=== PATIENT | male | born 1975 | race Caucasian/White ===

== ENCOUNTER 2022-03-21 02:37 | Emergency (ER) | payer SELFPAY ==
[2022-03-21] MEDS ORDERED: LIDOCAINE 1% MPF 5 ML VIAL ONE (02:55)
--- NOTE | 2022-03-21 03:53 | ER ---
Nurse's Notes [facility] Name: Eladio Ramos Age: 46 yrs Sex: Male : 1975 Arrival Date: 03/21/2022 Time: 02:40 Bed 13 Private MD: Diagnosis: Other seizures;facial laceration Presentation: 03/21 02:46 Chief complaint: Patient states: "I had a seizure and fell and hit my head". as6 Coronavirus screen: At this time, the client does not indicate any symptoms associated with coronavirus-19. Ebola Screen: No symptoms or risks identified at this time. Initial Sepsis Screen: Does the patient meet any 2 criteria? No. Patient's initial sepsis screen is negative. Does the patient have a suspected source of infection? No. Patient's initial sepsis screen is negative. Risk Assessment: Do you want to hurt yourself or someone else? Patient reports no desire to harm self or others. Onset of symptoms was March 21, 2022 at 01:30. 02:46 Method Of Arrival: Ambulatory as6 02:46 Acuity: NIRAV 3 as6 Historical: - Allergies: 02:48 No Known Allergies; as6 - Home Meds: 02:48 Keppra Oral [Active]; Klonopin Oral [Active]; as6 - PMHx: 02:48 Seizure; as6 - Immunization history:: Client reports having NOT received the Covid vaccine. - Social history:: Smoking status: Patient reports the use of cigarette tobacco products, smokes one pack cigarettes per day. - Family history:: not pertinent. Screenin:50 [facility] ED Fall Risk Assessment (Adult) History of falling in the last 3 months, as6 including since admission Yes- physiologic fall (2 pts) Confusion or Disorientation No (0 pts) Intoxicated or Sedated No (0 pts) Impaired Gait No (0 pts) Mobility Assist Device Used No (0 pt) Altered Elimination No (0 pt) Score/Fall Risk Level 0 - 2 = Low Risk Oriented to surroundings, Maintained a safe environment, Educated pt \\T\\ family on fall prevention, incl call for assistance when getting out of bed, Assessed \\T\\ reinforced patient's understanding of fall precautions, Hourly rounding (assess needs \\T\\ fall precautionary measures) done. Abuse screen: Denies threats or abuse. Denies injuries from another. Nutritional screening: No deficits noted. Tuberculosis screening: No symptoms or risk factors identified. Assessment: 02:59 General: Appears in no apparent distress. Behavior is calm, cooperative. Pain: as6 Complains of pain in head. Pain: Quality of pain is described as aching. Neuro: Level of Consciousness is awake, alert, obeys commands, Oriented to person, place, time, situation, Reports headache. Cardiovascular: Capillary refill < 3 seconds Patient's skin is warm and dry. Respiratory: Respiratory effort is even, unlabored, Respiratory pattern is regular, symmetrical. Derm: Wound noted left side of forehead Wound is laceration. Vital Signs: 02:46 BP 124 / 94; Pulse 94; Resp 18 S; Temp 97.8(O); Pulse Ox 97% on R/A; Weight 63.5 kg as6 (R); Height 5 ft. 7 in. (170.18 cm) (R); 02:49 Pain 7/10; as6 03:54 BP 122 / 89; Pulse 85; Resp 16 S; Pulse Ox 98% on R/A; as6 02:46 Body Mass Index 21.93 (63.50 kg, 170.18 cm) as6 ED Course: 02:40 Patient arrived in ED. ja2 02:40 Nimesh Wood MD is Attending Physician. rt 02:46 Edison Shaw, KALE is Primary Nurse. as6 02:48 Triage completed. as6 02:49 Arm band placed on. as6 02:49 Bed in low position. Call light in reach. as6 03:12 CT Head Brain wo Cont In Process Unspecified. EDMS 03:51 Javid Bauer MD is Referral Physician. rt 03:55 Assist provider with laceration repair on left side of forehead that was 2.5 cm. or as6 less using sutures. Set up tray. Performed by Nimesh Wood MD Patient tolerated well. Patient did not have IV access during this emergency room visit. Administered Medications: 03:45 Drug: Lidocaine (1 %) 5 ml {Note: administered by provider .} Volume: 5 ml; Route: as6 Infiltration; 04:01 Follow up: Response: No adverse reaction as6 04:01 Drug: Ketorolac 30 mg Route: IM; Site: right deltoid; as6 04:01 Follow up: Response: No adverse reaction as6 Medication: 03:54 VIS not applicable for this client. as6 Outcome: 03:52 Discharge ordered by MD. rt 03:54 Discharged to home ambulatory. as6 03:54 Condition: stable 04:01 Discharge instructions given to patient, Instructed on discharge instructions, follow as6 up and referral plans. medication usage, wound care, Demonstrated understanding of instructions, follow-up care, medications, wound care, Prescriptions given X 1. 04:01 Patient left the ED. as6 Signatures: Dispatcher [employer] EDMS Lynette Zaidi Ashby, RN RN as6 Nimesh Wood MD MD rt
--- NOTE | 2022-03-21 03:53 | EDPHYS ---
Physician Documentation [facility] Name: Eladio Ramos Age: 46 yrs Sex: Male : 1975 Arrival Date: 03/21/2022 Time: 02:40 Bed 13 Private MD: ED Physician Nimesh Wood HPI: 03/21 03:08 This 46 yrs old Male presents to ER via Ambulatory with complaints of Fall Injury. rt 03:08 Patient with history of seizure disorder, reportedly off of his Keppra for about 3 days rt presents to the ED with a generalized tonic-clonic seizure in which he hit his head, has a laceration to the left eyebrow. Reports a mild pain to that area, denies other symptoms. Denies recent illness, other complaints. Symptoms are moderate in severity, no other aggravating alleviating factors.. Historical: - Allergies: 02:48 No Known Allergies; as6 - Home Meds: 02:48 Keppra Oral [Active]; Klonopin Oral [Active]; as6 - PMHx: 02:48 Seizure; as6 - Immunization history:: Client reports having NOT received the Covid vaccine. - Social history:: Smoking status: Patient reports the use of cigarette tobacco products, smokes one pack cigarettes per day. - Family history:: not pertinent. ROS: 03:08 Constitutional: Negative for fever, chills, and weight loss, Eyes: Negative for injury, rt pain, redness, and discharge, Cardiovascular: Negative for chest pain, palpitations, and edema, Respiratory: Negative for shortness of breath, cough, wheezing, and pleuritic chest pain, Abdomen/GI: Negative for abdominal pain, nausea, vomiting, diarrhea, and constipation, Skin: Negative for injury, rash, and discoloration, Psych: Negative for depression, anxiety, suicide ideation, homicidal ideation, and hallucinations. 03:08 Neuro: Positive for seizure activity, Negative for altered mental status. Exam: 03:08 Constitutional: This is a well developed, well nourished patient who is awake, alert, rt and in no acute distress. Eyes: Pupils equal round and reactive to light, extra-ocular motions intact. Lids and lashes normal. Conjunctiva and sclera are non-icteric and not injected. Cornea within normal limits. Periorbital areas with no swelling, redness, or edema. Neck: Trachea midline, no thyromegaly or masses palpated, and no cervical lymphadenopathy. Supple, full range of motion without nuchal rigidity, or vertebral point tenderness. No Meningismus. Chest/axilla: Normal chest wall appearance and motion. Nontender with no deformity. No lesions are appreciated. Cardiovascular: Regular rate and rhythm with a normal S1 and S2. No gallops, murmurs, or rubs. Normal PMI, no JVD. No pulse deficits. Respiratory: Lungs have equal breath sounds bilaterally, clear to auscultation and percussion. No rales, rhonchi or wheezes noted. No increased work of breathing, no retractions or nasal flaring. Abdomen/GI: Soft, non-tender, with normal bowel sounds. No distension or tympany. No guarding or rebound. No evidence of tenderness throughout. Skin: Warm, dry with normal turgor. Normal color with no rashes, no lesions, and no evidence of cellulitis. MS/ Extremity: Pulses equal, no cyanosis. Neurovascular intact. Full, normal range of motion. Neuro: Awake and alert, GCS 15, oriented to person, place, time, and situation. Cranial nerves II-XII grossly intact. Motor strength 5/5 in all extremities. Sensory grossly intact. Cerebellar exam normal. Normal gait. Psych: Awake, alert, with orientation to person, place and time. Behavior, mood, and affect are within normal limits. 03:08 Head/face: 2 Centimeter stellate laceration to the left eyebrow, no active bleeding noted.. Vital Signs: 02:46 BP 124 / 94; Pulse 94; Resp 18 S; Temp 97.8(O); Pulse Ox 97% on R/A; Weight 63.5 kg as6 (R); Height 5 ft. 7 in. (170.18 cm) (R); 02:49 Pain 7/10; as6 03:54 BP 122 / 89; Pulse 85; Resp 16 S; Pulse Ox 98% on R/A; as6 02:46 Body Mass Index 21.93 (63.50 kg, 170.18 cm) as6 Laceration: 03:54 Wound Repair of 3cm ( 1.2in ) subcutaneous laceration to outer aspect of left eyebrow. rt Irregularly shaped.. Distal neuro/vascular/tendon intact. Anesthesia: Wound infiltrated with 2 mls of 1% lidocaine. Wound prep: Copious irrigation. Skin closed with 7 4-0 Prolene using interrupted sutures and sterile technique. Dressed with 4x4's. Patient tolerated well. MDM: 02:44 Patient medically screened. rt 03:54 Differential diagnosis: Seizure, syncope, mechanical fall. Data reviewed: vital signs, rt nurses notes, radiologic studies. I considered the following discharge prescriptions or medication management in the emergency department Medications were administered in the Emergency Department. See MAR. Independent interpretation of the following test(s) in the Emergency Department CT Scan: My interpretation is No hemorrhage seen. Test considered but Not performed: EKG: No typical seizure, low suspicion for dysrhythmia, syncopal event. Labs: Stable vital signs, noncompliant on Keppra, labs not indicated. Care significantly affected by the following chronic conditions: Seizure disorder. Care significantly affected by the following Social Determinants of Health: Poor access to healthcare and/or lack of insurance, Misuse of alcohol and/or drugs. 03/21 02:49 Order name: CT Head Brain wo Cont rt 03/21 02:49 Order name: Wound Care; Complete Time: 02:59 rt Administered Medications: 03:45 Drug: Lidocaine (1 %) 5 ml {Note: administered by provider .} Volume: 5 ml; Route: as6 Infiltration; 04:01 Follow up: Response: No adverse reaction as6 04:01 Drug: Ketorolac 30 mg Route: IM; Site: right deltoid; as6 04:01 Follow up: Response: No adverse reaction as6 Disposition Summary: 03/21/22 03:52 Discharge Ordered Location: Home rt Problem: an acute exacerbation rt Symptoms: have improved rt Condition: Stable rt Diagnosis - Other seizures rt - facial laceration rt Followup: rt - With: Javid Bauer MD - When: 5 - 6 days - Reason: Followup: rt - With: Private Physician - When: 7 - 10 days - Reason: Staple/Suture removal Discharge Instructions: - Discharge Summary Sheet rt - Facial Laceration rt - Seizure, Adult rt Forms: - Medication Reconciliation Form rt - Thank You Letter rt - Antibiotic Education rt - Prescription Opioid Use rt Prescriptions: - Keppra 500 mg Oral Tablet - take 1 tablet by ORAL route every 12 hours; 60 tablet; Refills: 0, Product rt Selection Permitted Signatures: Dispatcher [employer] Edison Francisco, KALE RN as6 Nimesh Wood MD MD rt
[2022-03-21] MEDS ORDERED: KETOROLAC 30 MG/ML INJ ONE (03:59)
[2022-03-21 04:07] VITALS: TEMP 97.8
[2022-03-21 04:09] VITALS: BP 122/89; O2SAT 98
--- NOTE | 2022-03-21 16:30 | RAD REPORT ---
EXAM DESCRIPTION: Head Brain Wo Cont CLINICAL HISTORY: 46 years Male trauma COMPARISON: None TECHNIQUE: Noncontrast CT head. This exam was performed according to our departmental dose-optimization program, which includes autom ated exposure control, adjustment of the mA and/or kV according to patient size and/or use of iterati ve reconstruction technique.. FINDINGS: Parenchyma: No acute hemorrhage, large territorial infarction, or mass effect. Ventricles and extra-axial spaces: Appropriate for age. Visualized paranasal sinuses: Retention cysts versus polyps in the left ethmoid sinus and left spheno id sinus. Mastoid air cells: Clear. Bones: No acute focal abnormality. Additional comment: None. IMPRESSION: No acute intracranial findings. Electronically signed by: Celine Amor MD 03/21/2022 3:26 AM BRANDING SPECIALIST Due to temporary technical issues with the PACS/Fluency reporting system, reports are being signed by the in house radiologists without review as a courtesy to insure prompt reporting. The interpreting radiologist is fully responsible for the content of the report
== END 2022-03-21 04:01 | disposition home or self-care (01) ==
LOC: ER 02:37
DX: G40.802 Other epilepsy, not intractable, without status epilepticus (principal)
CPT/HCPCS: 70450; 96372; 99284; J2001

== ENCOUNTER → 2023-05-12 | Emergency (ER) | payer SELFPAY ==
[~2023-05-12] MED LIST: ACETAMINOPHEN 500 MG TAB ONE; HYDROCODONE/APAP 5/325 MG TAB ONE; LIDOCAINE 1% MPF 5 ML VIAL ONE
--- OUTSIDE RECORDS SUMMARY | 2023-05-12 17:35 | XMS REPORT | Continuity of Care Document ---
Author Name Unknown Address [address] [facility] [place] [address] [facility] thconnect Address [address] [facility] [place] [address] Care Team Providers Care Front Services Agent Name Role Phone Drew Goodwin MD Primary Care Physician [phone] Nimesh Blakely Attending Clinician Unavail able Beatris Bauer Attending Clinician Unav BETZAIDA Rodriguez Attending Clinician Unavailab Drew Law MD Attending Clinician [phone] FRANCESCO BURLESON Attending Clinician UnavailFrancesco Talbot MD Attending Clinician [phone] DREW GOODWIN Attending Clinician Unavailable Pcp-Lab Attending Clinician Unavailable Doctor Unassigned, Petrey Attending Clinician U MICHELE Harper Attending Clinician Unavailable RADIOLOGY Attending Clinician Unavailable Micheal Brown DO Attending Clinician Miguel Angel Sandoval MD Attending Clinician MIGUEL ANGEL SANDOVAL Attending Clinician Unavailable MANUELA CHIRINOS D.O. 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 Active [facility] No known active problems No known active problems Disease [facility] Allergies, Adverse Reactions, Alerts Allergy Name Allergy Type Status Severity Reaction(s) Onset Date Inactive Date Treating Clinician Comments Source No Known Allergie s DA Active U 0 -05 00:00: 00 [facility] No Known Allergie s DA Active U 0 4-05 00:00: 00 [facility] No Known Drug Allergie s DA Active U 0 5-13 00:00: 00 [facility] No Known Drug Allergie s DA Active U 0 5-13 00:00: 00 [facility] No Known Drug Allergie s DA Active U 0 5-10 00:00: 00 [facility] No Known Allergie s DA Active U 0 3-06 00:00: 00 [facility] [place] [address] 8-10 00:00: 00 [facility] Divalpro ex Sodium Propensi ty to adverse reaction s Active Unknown - See comments 2011-02 00:00: 00 [facility] DIVALPRO EX SODIUM DRUG INGREDI Active Unknown-Cmnt 2011-02 00:00: 00 [facility] Carbamaz epine Propensi ty to adverse reaction s Active Unknown - See comments 09-22 00:00: 00 [facility] CARBAMAZ EPINE DRUG INGREDI Active Unknown-Cmnt 09-22 00:00: 00 [facility] Social History Social Habit Start Date Stop Date Quantity Comments Source History of tobacco use Cigarette Smoker [facility] 2022-12-14 00:00:00 2022-12-14 00:00:00 1.19 /d [facility] Exposure to SARS-CoV-2 (event) 2022-04-25 00:00:00 2022-05-05 10:48:00 Not sure [facility] History of Social function 2022-05-05 00:00:00 2022-05-05 00:00:00 [facility] Cigarettes smoked current (pack per day) - Reported 2010-12-03 00:00:00 2010-12-03 00:00:00 [facility] Tobacco use and exposure 2010-12-03 00:00:00 2010-12-03 00:00:00 Smokeless tobacco non-user [facility] Alcohol Comment 2010-12-03 00:00:00 2010-12-03 00:00:00 social drinking [facility] Sex Assigned At 1975 00:00:00 1975 00:00:00 [facility] Smoking Status Start Date Stop Date Source Smokes tobacco daily 2010-12-03 00:00:00 [facility] Medications Ordered Medication Name Filled Medication Name Start Date Stop Date Current Medication? Ordering Clinician Indication Dosage Frequency Signature (SIG) Comments Components Source clonazePAM 2 mg tablet 2022-02 00:00: 00 Yes [id number] TAKE 1 TABLET BY MOUTH IN THE MORNING AND 1 TABLET BY MOUTH IN THE EVENING [facility] levETIRAcet am 750 mg tablet 2022-02 00:00: 00 Yes [id number] 750mg Take 1 tablet by mouth in the morning and 1 tablet in the evening. [facility] clonazePAM 2 mg tablet 2022-02 00:00: 00 Yes [id number] 2mg Take 1 tablet by mouth in the morning and 1 tablet in the evening. [facility] levETIRAcet am 750 mg tablet 2022-02 00:00: 00 Yes [id number] 750mg Take 1 tablet by mouth in the morning and 1 tablet in the evening. [facility] clonazePAM 2 mg tablet 2022-02 1- 00:00: 00 Yes [id number] 2mg Take 1 tablet by mouth in the morning and 1 tablet in the evening. [facility] levETIRAcet am 750 mg tablet 2022-02 1 00:00: 00 Yes [id number] 750mg Take 1 tablet by mouth in the morning and 1 tablet in the evening. [facility] clonazePAM 2 mg tablet 2022-02 1 00:00: 00 01-16 00:00 :00 No [id number] 2mg Take 1 tablet by mouth in the morning and 1 tablet in the evening. [facility] cefadroxil 1 gram tablet 2022-02 0- 00:00: 00 Yes [id number] 1000mg Take 1 tablet by mouth in the morning. [facility] cefadroxil 1 gram tablet 2022-02 0 00:00: 00 Yes [id number] 1000mg Take 1 tablet by mouth in the morning. [facility] cefadroxil 1 gram tablet 2022-02 0 00:00: 00 Yes [id number] 1000mg Take 1 tablet by mouth in the morning. [facility] cefadroxil 1 gram tablet 2022-02 0 00:00: 00 Yes [id number] 1000mg Take 1 tablet by mouth in the morning. [facility] cefadroxil 1 gram tablet 2022-02 0 00:00: 00 12-30 04:59 :00 No [id number] 1000mg Take 1 tablet by mouth in the morning for 10 days. [facility] cefadroxil 1 gram tablet 2022-02 0- 00:00: 00 12-20 00:00 :00 No [id number] 1000mg Take 1 tablet by mouth in the morning for 10 days. [facility] levETIRAcet am 750 mg tablet 2022-02 0-12 00:00: 00 Yes [id number] 750mg Take 1 tablet by mouth in the morning and 1 tablet in the evening. [facility] traZODone 50 mg tablet 2022-02 0-12 00:00: 00 Yes [id number] 105 25mg Take 0.5 tablets by mouth at bedtime. [facility] cyclobenzap rine 5 mg tablet 2022-02 0-12 00:00: 00 Yes [id number] 5mg Take 1 tablet by mouth 3 (three) times daily as needed for Muscle Spasms. [facility] levETIRAcet am 750 mg tablet 2022-02 0-12 00:00: 00 Yes [id number] 750mg Take 1 tablet by mouth in the morning and 1 tablet in the evening. [facility] traZODone 50 mg tablet 2022-02 012 00:00: 00 Yes [id number] 105 25mg Take 0.5 tablets by mouth at bedtime. [facility] cyclobenzap rine 5 mg tablet 2022-02 0 00:00: 00 Yes [id number] 5mg Take 1 tablet by mouth 3 (three) times daily as needed for Muscle Spasms. [facility] levETIRAcet am 750 mg tablet 2022-02 0 00:00: 00 Yes [id number] 750mg Take 1 tablet by mouth in the morning and 1 tablet in the evening. [facility] traZODone 50 mg tablet 2022-02 0 00:00: 00 Yes [id number] 105 25mg Take 0.5 tablets by mouth at bedtime. [facility] cyclobenzap rine 5 mg tablet 2022-02 012 00:00: 00 Yes [id number] 5mg Take 1 tablet by mouth 3 (three) times daily as needed for Muscle Spasms. [facility] levETIRAcet am 750 mg tablet 2022-02 0-12 00:00: 00 Yes [id number] 750mg Take 1 tablet by mouth in the morning and 1 tablet in the evening. [facility] traZODone 50 mg tablet 2022-02 0-12 00:00: 00 Yes [id number] 105 25mg Take 0.5 tablets by mouth at bedtime. [facility] cyclobenzap rine 5 mg tablet 2022-02 0-12 00:00: 00 Yes [id number] 5mg Take 1 tablet by mouth 3 (three) times daily as needed for Muscle Spasms. [facility] levETIRAcet am 750 mg tablet 2022-02 0-12 00:00: 00 Yes [id number] 750mg Take 1 tablet by mouth in the morning and 1 tablet in the evening. [facility] traZODone 50 mg tablet 2022-02 0-12 00:00: 00 Yes [id number] 105 25mg Take 0.5 tablets by mouth at bedtime. [facility] cyclobenzap rine 5 mg tablet 2022-02 0-12 00:00: 00 Yes [id number] 5mg Take 1 tablet by mouth 3 (three) times daily as needed for Muscle Spasms. [facility] levETIRAcet am 750 mg tablet 2022-02 0 00:00: 00 Yes [id number] 750mg Take 1 tablet by mouth in the morning and 1 tablet in the evening. [facility] traZODone 50 mg tablet 2022-02 0 00:00: 00 Yes [id number] 105 25mg Take 0.5 tablets by mouth at bedtime. [facility] cyclobenzap rine 5 mg tablet 2022-02 0 00:00: 00 Yes [id number] 5mg Take 1 tablet by mouth 3 (three) times daily as needed for Muscle Spasms. [facility] levETIRAcet am 750 mg tablet 2022-02 012 00:00: 00 Yes [id number] 750mg Take 1 tablet by mouth in the morning and 1 tablet in the evening. [facility] traZODone 50 mg tablet 2022-02 012 00:00: 00 Yes [id number] 105 25mg Take 0.5 tablets by mouth at bedtime. [facility] cyclobenzap rine 5 mg tablet 2022-02 0-12 00:00: 00 Yes [id number] 5mg Take 1 tablet by mouth 3 (three) times daily as needed for Muscle Spasms. [facility] levETIRAcet am 750 mg tablet 2022-02 0-12 00:00: 00 Yes [id number] 750mg Take 1 tablet by mouth in the morning and 1 tablet in the evening. [facility] traZODone 50 mg tablet 2022-02 0-12 00:00: 00 Yes [id number] 105 25mg Take 0.5 tablets by mouth at bedtime. [facility] cyclobenzap rine 5 mg tablet 2022-02 0-12 00:00: 00 Yes [id number] 5mg Take 1 tablet by mouth 3 (three) times daily as needed for Muscle Spasms. [facility] traZODone 50 mg tablet 2022-02 0-12 00:00: 00 Yes [id number] 105 25mg Take 0.5 tablets by mouth at bedtime. [facility] cyclobenzap rine 5 mg tablet 2022-02 0- 00:00: 00 Yes [id number] 5mg Take 1 tablet by mouth 3 (three) times daily as needed for Muscle Spasms. [facility] traZODone 50 mg tablet 2022-02 0-12 00:00: 00 Yes [id number] 105 25mg Take 0.5 tablets by mouth at bedtime. [facility] cyclobenzap rine 5 mg tablet 2022-02 0-12 00:00: 00 Yes [id number] 5mg Take 1 tablet by mouth 3 (three) times daily as needed for Muscle Spasms. [facility] traZODone 50 mg tablet 2022-02 0-12 00:00: 00 Yes [id number] 105 25mg Take 0.5 tablets by mouth at bedtime. [facility] cyclobenzap rine 5 mg tablet 2022-02 0-12 00:00: 00 Yes [id number] 5mg Take 1 tablet by mouth 3 (three) times daily as needed for Muscle Spasms. [facility] levETIRAcet am 750 mg tablet 2022-02 0-12 00:00: 00 01-02 00:00 :00 No [id number] 750mg Take 1 tablet by mouth in the morning and 1 tablet in the evening. [facility] clonazePAM 2 mg tablet -03 00:00: 00 Yes [id number] 2mg Take 1 tablet by mouth in the morning and 1 tablet in the evening. [facility] clonazePAM 2 mg tablet 2022-0 - 00:00: 00 Yes [id number] 2mg Take 1 tablet by mouth in the morning and 1 tablet in the evening. [facility] clonazePAM 2 mg tablet 2022-0 - 00:00: 00 Yes [id number] 2mg Take 1 tablet by mouth in the morning and 1 tablet in the evening. [facility] clonazePAM 2 mg tablet 2022-0 - 00:00: 00 Yes [id number] 2mg Take 1 tablet by mouth in the morning and 1 tablet in the evening. [facility] clonazePAM 2 mg tablet 2022-0 06-29 00:00: 00 Yes [id number] 2mg Take 1 tablet by mouth in the morning and 1 tablet in the evening. [facility] clonazePAM 2 mg tablet 2022-0 - 00:00: 00 Yes [id number] 2mg Take 1 tablet by mouth in the morning and 1 tablet in the evening. [facility] clonazePAM 2 mg tablet 2022-0 06-29 00:00: 00 Yes [id number] 2mg Take 1 tablet by mouth in the morning and 1 tablet in the evening. [facility] clonazePAM 2 mg tablet 2022-0 06-29 00:00: 00 Yes [id number] 2mg Take 1 tablet by mouth in the morning and 1 tablet in the evening. [facility] clonazePAM 2 mg tablet 2022-0 - 00:00: 00 Yes [id number] 2mg Take 1 tablet by mouth in the morning and 1 tablet in the evening. [facility] clonazePAM 2 mg tablet 2022-0 06-29 00:00: 00 Yes [id number] 2mg Take 1 tablet by mouth in the morning and 1 tablet in the evening. [facility] clonazePAM 2 mg tablet 2022-0 - 00:00: 00 01-02 00:00 :00 No [id number] 2mg Take 1 tablet by mouth in the morning and 1 tablet in the evening. [facility] levETIRAcet am 750 mg tablet 2022-0 05-05 00:00: 00 Yes [id number] 750mg Take 1 tablet by mouth in the morning and 1 tablet in the evening. [facility] clonazePAM 2 mg tablet 2022-0 05-05 00:00: 00 Yes [id number] 2mg Take 1 tablet by mouth in the morning and 1 tablet in the evening. [facility] levETIRAcet am 750 mg tablet 2022-0 05-05 00:00: 00 Yes [id number] 750mg Take 1 tablet by mouth in the morning and 1 tablet in the evening. [facility] clonazePAM 2 mg tablet 2022-0 05-05 00:00: 00 Yes [id number] 2mg Take 1 tablet by mouth in the morning and 1 tablet in the evening. [facility] levETIRAcet am 750 mg tablet 2022-0 05-05 00:00: 00 Yes [id number] 750mg Take 1 tablet by mouth in the morning and 1 tablet in the evening. [facility] clonazePAM 2 mg tablet 2022-0 05-05 00:00: 00 Yes [id number] 2mg Take 1 tablet by mouth in the morning and 1 tablet in the evening. [facility] levETIRAcet am 750 mg tablet 2022-0 05-05 00:00: 00 Yes [id number] 750mg Take 1 tablet by mouth in the morning and 1 tablet in the evening. [facility] clonazePAM 2 mg tablet 2022-0 05-05 00:00: 00 Yes [id number] 2mg Take 1 tablet by mouth in the morning and 1 tablet in the evening. [facility] levETIRAcet am 750 mg tablet 2022-0 05-05 00:00: 00 Yes [id number] 750mg Take 1 tablet by mouth in the morning and 1 tablet in the evening. [facility] levETIRAcet am 750 mg tablet 2022-0 05-05 00:00: 00 Yes [id number] 750mg Take 1 tablet by mouth in the morning and 1 tablet in the evening. [facility] clonazePAM 2 mg tablet 2022-0 05-05 00:00: 00 2023- 05-03 00:00 :00 No [id number] 2mg Take 1 tablet by mouth in the morning and 1 tablet in the evening. [facility] levETIRAcet am (KEPPRA) in NACL (ISO-OS) 1,500 mg/100 mL RTU 2021-02 15:30: 00 01-02 15:33 :00 No 1500mg 1,500 mg, IV Piggyback, ONCE, 1 dose, On 01/02/22 at 0930, Administer over 15 Minutes, 100 mL [facility] NaCl 0.9% (NS) bolus infusion 1,000 mL 2021-02 15:30: 00 01-02 16:45 :00 No 1000mL at 999 mL/hr, 1,000 mL, IV Infusion, ONCE, 1 dose, On 01/02/22 at 0930, SAMANTHA [facility] LORazepam (ATIVAN) injection 2 mg 2021-02 15:00: 00 01-02 15:00 :00 No 2mg 2 mg, Intramuscu lar, ONCE, 1 dose, On 01/02/22 at 0900, STAT [facility] lidocaine 1% (PF) (XYLOCAINE) injection 10 mL 2021-02 14:15: 00 01-02 14:15 :00 No 10mL 10 mL, Infiltrati on, ONCE, 1 dose, On 01/02/22 at 0815, Routine [facility] morpHINE (4 mg/mL) injection 4 mg 2021-02 08:30: 00 01-02 08:48 :00 No 4mg 4 mg, Slow IV Push, ONCE, 1 dose, On 01/02/22 at 0230, STAT [facility] levETIRAcet am (KEPPRA) 500 mg tablet 2021-02 00:00: 00 02-02 05:59 :00 No [id number] 750mg Take 1.5 tablets by mouth in the morning and 1.5 tablets in the evening. Do all this for 30 days. [facility] levETIRAcet am (KEPPRA) 500 mg tablet 2021-02 00:00: 00 01-02 00:00 :00 No [id number] 500mg Take 1 tablet by mouth in the morning and 1 tablet in the evening. [facility] clonazePAM 2 mg tablet 3-10 00:00: 00 Yes [id number] 2mg Take 1 tablet by mouth 2 (two) times daily. [facility] clonazePAM 2 mg tablet 3-10 00:00: 00 Yes [id number] 2mg Take 1 tablet by mouth 2 (two) times daily. [facility] clonazePAM 2 mg tablet 3-10 00:00: 00 Yes [id number] 2mg Take 1 tablet by mouth 2 (two) times daily. [facility] clonazePAM 2 mg tablet 3-10 00:00: 00 Yes [id number] 2mg Take 1 tablet by mouth 2 (two) times daily. [facility] clonazePAM 2 mg tablet 3-10 00:00: 00 Yes [id number] 2mg Take 1 tablet by mouth 2 (two) times daily. [facility] clonazePAM 2 mg tablet 3-10 00:00: 00 05-05 00:00 :00 No [id number] 2mg Take 1 tablet by mouth 2 (two) times daily. [facility] clonazePAM 2 mg tablet 3-10 00:00: 00 05-05 00:00 :00 No [id number] 2mg Take 1 tablet by mouth 2 (two) times daily. [facility] levETIRAcet am (KEPPRA) 500 mg tablet 3-10 00:00: 00 01-02 00:00 :00 No [id number] 500mg Take 1 tablet by mouth 2 (two) times daily. [facility] Capsaicin 0.1 % External Cream Capsaicin 0.1 % External Cream 18 00:00: 00 Yes MANUELA CHIRINOS D.O. Q0.25D APPLY GENTLY TO AFFECTED AREA 3-4 TIMES DAILY. [facility] Keppra 250 MG Oral Tablet Keppra 250 MG Oral Tablet Yes [facility] clonazePAM 0.5 MG Oral Tablet clonazePAM 0.5 MG Oral Tablet Yes [facility] Immunizations Ordered Immunization Name Filled Immunization Name Date Status Comments Source TD, NOS 2022-01-02 00:00:00 Completed [facility] TD, NOS 2022-01-02 00:00:00 Completed [facility] TD, NOS 2022-01-02 00:00:00 Completed [facility] TD, NOS 2022-01-02 00:00:00 Completed [facility] TD, NOS 2022-01-02 00:00:00 Completed [facility] TD, NOS 2022-01-02 00:00:00 Completed [facility] Td 2022-01-02 00:00:00 Completed [facility] Td 2022-01-02 00:00:00 Completed [facility] TD, NOS 2022-01-02 00:00:00 Completed [facility] TD, NOS 2022-01-02 00:00:00 Completed [facility] TD, NOS 2022-01-02 00:00:00 Completed [facility] TD, NOS 2013-08-14 00:00:00 Completed [facility] TD, NOS 2013-08-14 00:00:00 Completed [facility] TD, NOS 2013-08-14 00:00:00 Completed [facility] TD, NOS 2013-08-14 00:00:00 Completed [facility] TD, NOS 2013-08-14 00:00:00 Completed [facility] TD, NOS 2013-08-14 00:00:00 Completed [facility] Td 2013-08-14 00:00:00 Completed [facility] Td 2013-08-14 00:00:00 Completed [facility] TD, NOS 2013-08-14 00:00:00 Completed [facility] TD, NOS 2013-08-14 00:00:00 Completed [facility] TD, NOS 2013-08-14 00:00:00 Completed [facility] Influenza Virus Vaccine 2011-03-21 00:00:00 Completed [facility] Influenza Virus Vaccine 2011-03-21 00:00:00 Completed [facility] Influenza Virus Vaccine 2011-03-21 00:00:00 Completed [facility] Influenza Virus Vaccine 2011-03-21 00:00:00 Completed [facility] Influenza Virus Vaccine 2011-03-21 00:00:00 Completed [facility] Influenza Virus Vaccine 2011-03-21 00:00:00 Completed [facility] Influenza Virus Vaccine 2011-03-21 00:00:00 Completed [facility] Influenza Virus Vaccine 2011-03-21 00:00:00 Completed [facility] Influenza Virus Vaccine 2011-03-21 00:00:00 Completed [facility] Influenza Virus Vaccine 2011-03-21 00:00:00 Completed [facility] Influenza Virus Vaccine 2011-03-21 00:00:00 Completed [facility] Influenza Virus Vaccine Unknown Completed [facility] TD, NOS Unknown Completed [facility] TD, NOS Unknown Completed [facility] Influenza Virus Vaccine Unknown Completed [facility] Influenza Virus Vaccine Unknown Completed [facility] TD, NOS Unknown Completed [facility] TD, NOS Unknown Completed [facility] Influenza Virus Vaccine Unknown Completed [facility] Influenza Virus Vaccine Unknown Completed [facility] TD, NOS Unknown Completed [facility] TD, NOS Unknown Completed [facility] Influenza Virus Vaccine Unknown Completed [facility] Influenza Virus Vaccine Unknown Completed [facility] TD, NOS Unknown Completed [facility] TD, NOS Unknown Completed [facility] Influenza Virus Vaccine Unknown Completed [facility] Influenza Virus Vaccine Unknown Completed [facility] TD, NOS Unknown Completed [facility] TD, NOS Unknown Completed [facility] Influenza Virus Vaccine Unknown Completed [facility] Influenza Virus Vaccine Unknown Completed [facility] TD, NOS Unknown Completed [facility] TD, NOS Unknown Completed [facility] Influenza Virus Vaccine Unknown Completed [facility] Influenza Virus Vaccine Unknown Completed [facility] TD, NOS Unknown Completed [facility] TD, NOS Unknown Completed [facility] Influenza Virus Vaccine Unknown Completed [facility] Influenza Virus Vaccine Unknown Completed [facility] TD, NOS Unknown Completed [facility] TD, NOS Unknown Completed [facility] Influenza Virus Vaccine Unknown Completed [facility] Influenza Virus Vaccine Unknown Completed [facility] TD, NOS Unknown Completed [facility] TD, NOS Unknown Completed [facility] Influenza Virus Vaccine Unknown Completed [facility] Influenza Virus Vaccine Unknown Completed [facility] TD, NOS Unknown Completed [facility] TD, NOS Unknown Completed [facility] Influenza Virus Vaccine Unknown Completed [facility] Influenza Virus Vaccine Unknown Completed [facility] TD, NOS Unknown Completed [facility] TD, NOS Unknown Completed [facility] Influenza Virus Vaccine Unknown Completed [facility] Vital Signs Vital Name Observation Time Observation Value Comments S ource Systolic blood pressure 2022-05-05 16:53:00 133 mm[Hg] [facility] Diastolic blood pressure 2022-05-05 16:53:00 88 mm[Hg] [facility] Heart rate 2022-05-05 16:53:00 87 /min [facility] Respiratory rate 2022-05-05 16:53:00 18 /min [facility] Body height 2022-05-05 16:53:00 170.2 cm [facility] Body weight 2022-05-05 16:53:00 66.18 kg [facility] BMI 2022-05-05 16:53:00 22.85 kg/m2 [facility] Oxygen saturation in Arterial blood by Pulse oximetry 2022-05-05 16:53:00 99 /min [facility] Systolic blood pressure 2022-01-02 19:00:00 94 mm[Hg] [facility] Diastolic blood pressure 2022-01-02 19:00:00 53 mm[Hg] [facility] Heart rate 2022-01-02 19:00:00 91 /min [facility] Respiratory rate 2022-01-02 19:00:00 16 /min [facility] Oxygen saturation in Arterial blood by Pulse oximetry 2022-01-02 19:00:00 95 /min [facility] Body temperature 2022-01-02 06:04:00 36.78 Melonie [facility] Body weight 2022-01-02 06:04:00 66.225 kg [facility] BMI 2022-01-02 06:04:00 20.95 kg/m2 [facility] BP Systolic 2018-06-13 15:24:00 108 mm[Hg] Location: LLE; Position: Sitting [facility] BP Diastolic 2018-06-13 15:24:00 62 mm[Hg] Location: LLE; Position: Sitting [facility] Height 2018-06-13 15:24:00 70 [in_us] [facility] Weight 2018-06-13 15:24:00 140 [lb_av] [facility] Body Mass Index Calculated 2018-06-13 15:24:00 20.09 kg/m2 [facility] Temperature 2018-06-13 15:24:00 98 [degF] [facility] Heart Rate 2018-06-13 15:24:00 89 /min [facility] Procedures Procedure Date / Time Performed Performing Clinician Source FUNGUS (ROUTINE) CULTURE 2022-12-14 20:58:00 Oriana Montez [facility] TISSUE CULTURE(AEROBIC/ANAEROBIC) 2022-12-14 20:58:00 Francesco Burleson [facility] DERMATOPATHOLOGY TISSUE EXAM 2022-12-14 00:00:00 Francesco Burleson [facility] CONSENT/REFUSAL FOR DIAGNOSIS AND TREATMENT 2022-05-05 16:47:27 Doctor Unassigned, Petrey [facility] REFERRAL- REQUEST/RESPONSE 2022-02-03 06:01:00 Juvenal mcmullen Unassigned, Petrey [facility] ETHANOL 2022-01-02 14:46:00 Almaz Marshall [facility] CBC WITH DIFF 2022-01-02 14:46:00 Miguel Angel Sandoval [facility] [place] RESUPERF WND FACE 2.5CM OR LESS 2022-01-02 14:04:35 Micheal Brown [facility] XR CHEST 2 VW 2022-01-02 12:04:00 Micheal Brown [facility] CT MAXILLOFACIAL/MANDIBLE WO CONTRAST 2022-01-02 09:16:59 Micheal Brown [facility] CT HEAD WO CONTRAST 2022-01-02 09:16:59 Micheal Brown [facility] [id number] 2019-06-04 00:00:00 SILTE [facility] [id number] 2019-06-04 00:00:00 SILTE [facility] [id number] 2019-06-04 00:00:00 SILTE [facility] MRI Spine lumbar wo contrast [id number] 2018-06-13 00:00:00 [facility] Encounters Start Date/Time End Date/Time Encounter Type Admission Type Attending [facility] Care Facility Care Department Encounter ID Source 2019-12-19 13:24:00 Inpatient HC[facility]N MAX [id number] [facility] 2019-07-19 07:45:00 Inpatient Nimesh Goldstein HCATO RADI [id number] [facility] 2019-06-03 12:58:00 Inpatient EM Beatris Lundberg HCAMN MEDI [id number] [facility] 2019-06-02 13:34:00 Inpatient HCAMN MAX [id number] [facility] 2023-01-13 00:00:00 2023-01-13 00:00:00 Refill JosephDrew lao [facility] 1.2.840.114 350.1.13.10 4.2.7.2.686 [id number] [facility] 2023-01-02 00:00:00 2023-01-02 00:00:00 Refill Buddy Drew [facility] 1.2.840.114 350.1.13.10 4.2.7.2.686 [id number] [facility] 2023-01-02 00:00:00 2023-01-02 00:00:00 Telephone Buddy Drew [facility] 1.2.840.114 350.1.13.10 4.2.7.2.686 [id number] [facility] 2022-12-26 15:30:00 2022-12-26 15:30:00 Outpatient FRANCESCO POWER [facility] [id number] [facility] 2022-12-19 00:00:00 2022-12-19 00:00:00 Telephone Francesco Burleson [facility] 1.2840.114 350.1.13.10 4.2.7.2.686 [id number] [facility] 2022-12-14 13:40:00 2022-12-14 14:27:26 Outpatient R FRANCESCO BURLESON [facility] [id number] [facility] 2022-12-14 13:40:00 2022-12-14 14:27:26 Office Visit Francesco Burleson [facility] 1.2840.114 350.1.13.10 4.2.7.2.686 [id number] [facility] 2022-12-08 00:00:00 2022-12-08 00:00:00 Outpatient [facility] [id number] [facility] 2022-11-16 13:49:55 2022-11-16 13:49:55 Outpatient S[facility] [id number] Efraín Stubbs 2022-10-06 13:00:00 2022-10-06 13:00:00 Outpatient R DREW GOODWIN [facility] [id number] [facility] 2022-08-10 13:24:25 2022-08-10 13:24:25 Outpatient [facility] [id number] Efraín Stubbs 2022-07-19 00:00:00 2022-07-19 00:00:00 Telephone Drew Goodwin [facility] 1.2840.114 350.1.13.10 4.2.7.2.686 [id number] [facility] 2022-06-29 00:00:00 2022-06-29 00:00:00 Telephone Derw Goodwin Elina [facility] 1.2.840.114 350.1.13.10 4.2.7.2.686 [id number] [facility] 2022-06-28 00:00:00 2022-06-28 00:00:00 Telephone Drew Goodwin [facility] PAVJADEN 1.2.840.114 350.1.13.10 4.2.7.2.686 [id number] [facility] 2022-05-05 11:30:00 2022-05-05 11:45:00 Cash Applications Associate Visit Pcp-Lab Drew Goodwin [facility] PAVJORDANON 1.2.840.114 350.1.13.10 4.2.7.2.686 [id number] [facility] 2022-05-05 10:40:00 2022-05-05 11:13:33 Office Visit Drew Goodwin [facility] PAVJORD[facility] 1.2.840.114 350.1.13.10 4.2.7.2.686 [id number] [facility] 2022-05-05 10:40:00 2022-05-05 11:13:33 Outpatient R DREW GOODWIN [facility] [id number] [facility] 2022-05-05 00:00:00 2022-05-05 00:00:00 Orders Only Doctor Unassigned, Petrey [facility] 1.2.840.114 350.1.13.10 4.2.7.2.686 [id number] [facility] 2022-04-11 00:00:00 2022-04-11 00:00:00 Telephone Drew Goodwin [facility] 1.2.840.114 350.1.13.10 4.2.7.2.686 [id number] [facility] 2022-04-09 00:00:00 2022-04-09 00:00:00 Refill Drew Goodwin [facility] 1.2.840.114 350.1.13.10 4.2.7.2.686 [id number] [facility] 2022-03-30 09:10:16 2022-03-30 09:10:16 Outpatient [facility] [id number] Efraín Stubbs 2022-03-29 16:47:51 2022-03-29 16:47:51 Outpatient [facility] [id number] Efraín Stubbs 2022-02-17 14:20:00 2022-02-17 14:20:00 Outpatient DREW CAIN [facility] [id number] [facility] 2022-02-10 00:00:00 2022-02-10 00:00:00 Outpatient R NAOMI [facility] [id number] [facility] 2022-02-03 15:06:38 2022-02-03 15:06:38 Outpatient [facility] [id number] Efraín Stubbs 2022-02-03 00:00:00 2022-02-03 00:00:00 Orders Only Doctor Unassigned, Petrey [facility] 1.2.840.114 350.1.13.10 4.2.7.2.686 [id number] [facility] 2022-01-02 01:08:00 2022-01-02 13:56:00 Emergency Micheal Brown [facility] 1..840.114 350.1.13.10 4.2.7.2.686 [id number] [facility] 2022-01-02 01:08:00 2022-01-02 13:56:00 Emergency X MIGUEL ANGEL SANDOVAL CHAR[facility] ERT [id number] [facility] 2019-09-09 10:00:00 2019-09-09 10:00:00 Outpatient DREW CAIN [facility] [id number] [facility] 2019-07-09 00:00:00 2019-07-09 00:00:00 Telephone Drew Goodwin S [facility] 1.2.840.114 350.1.13.10 4.2.7.2.686 [id number] 2019-06-03 01:16:00 2019-06-03 01:16:00 Outpatient Beatris Lundberg [facility] [id number] [facility] 2018-06-13 16:00:00 2018-07-11 14:09:15 Outpatient [facility] [id number] 2018-06-13 16:00:00 2018-06-13 16:00:00 AppointMANUELA Alejandro D.O. BOKHARI, HAMMAD, D.O. [facility] [id number] [facility] Results Test Description Test Time Test Comments Results Result Co mments Source HEPATITIS PANEL, [id number] 05:12:09* Test Item Value Reference Range Interpretation Comme nts HEPATITIS A IgM (test code = 07739) NON-REACTIVE NON-REACTIVE HEPATITIS B CORE IgM (test code = 4644) NON-REACTIVE NON-REACTIVE HEPATITIS B SURF AG (test code = 2739) NON-REACTIVE NON-REACTIVE HEPATITIS C ANTIBODY (test code = 4675) NON-REACTIVE NON-REACTIVE INTERPRETATION HEPATITIS A: (test code = 2552) (NOTE) Hepatitis A serology shows no evidence of acute hepatitis A. INTERPRETATION HEPATITIS B: (test code = 72286) (NOTE) Hepatitis B serology shows no evidence of acute hepatitis B andno indication of exposure to hepatitis B virus in the previous kade eight months. INTERPRETATION HEPATITIS C: (test code = 37552) (NOTE) Hepatitis C serology shows no evidence of exposure to hepatitisC virus at this time. It can take up to 12 months after exposure tothe hepatitis C virus for antibodies to become detectable in the blood in certain patients. HIV 1/2 4TH GEN, RFLX [id number] 05:12:09* Test Item Value Reference Range Interpretation Comme nts HIV 1/2 4TH GEN, RFLX CONF ( test code = 3514) NON-REACTIVE NON-REACTIVE RPR REFLEX TO T. PALLIDUM - [id number] 03:47:09* Test Item Value Reference Range Interpretation Comme nts RPR (test code = 75159) NON-REACTIVE NON-REACTIVE RPR TITER (test code = 3500) NOT INDIC. TITER NOT INDIC. - MRI L-SPINE W/O [id number] 10:15:00Patient Name: ABDIEL RAMOS Unit No: [id number] EXAMS: CPT CODE: [id number] MRI L-SPINE W/O CONT 23741 MRI OF THE LUMBAR SPINE: DIAGNOSIS: 1. At L1-2, there is no disc bulge or herniation. No central canal or foraminal stenosis. 2. At L2-3, no disc bulge or herniation. No central canal or foraminal stenosis. Moderate left facet arthropathy. 3. At L3- 4, no disc bulge or herniation. No centralcanal or foraminal stenosis. 4. At L4- 5, moderate disc degeneration. There is 2 mm of retrolisthesis of L4 and L5. There is a 4 mm slightly caudally migrated posterior central disc herniation which flattens the ventral thecal sac. There may be mild associated impingement of the left L5 nerve root lateral gutter. Mild bilateral foraminal stenosis. 5. At L5-S1, grade 1 spondylolisthesis of L5 on S1. 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 No central canal stenosis.Mild to moderate bilateral foraminal stenosis. COMMENT: COMPARISON: No prior exams available. Sagittal T1, T2 and STIR and axial T1 and T2-weighted sequences are obtained of the lumbar spine. The lumbar vertebrae are within normal limits in signal. The findings are as above. The conus is in the expected location. at 1015 Reported and signed by: Angie Middleton MD CC: Nimesh Blakely MD Technologist: Kang Ng(R) Transcribed D/ (1015) tELODIAGVG [facility] NAME: ABDIEL RAMOS [address] [facility] PHYS: Nimesh Grant : 1975 AGE: 43 SEX: M [place], [place] [address] LOC: Y.MRI PHONE #: [phone] EXAM DATE: 07/19/2019 STATUS: REG CLI FAX #: [phone] RAD #: D/C DT PAGE 1 Signed Report Patient Name: ABDIEL RAMOS Unit No: [id number] EXAMS: CPT CODE: [id number] MRI L-SPINE W/O CONT 93085 <Continued> Orig Print D/T: S: 07/19/2019 (1019) [facility] NAME: ABDIEL RAMOS [address] [facility] PHYS: STROSAS - Nimesh Blakely Jarred : 1975 AGE: 43 SEX: M [place], [place] [address] LOC: Y.MRI PHONE#: [phone] EXAM DATE: 07/19/2019 STATUS: REG CLI FAX #: [phone] RAD #: D/C DT PAGE 2 Signed [id number] 12:06:00 RUN DATE: 06/07/19 [facility] - Lab PAGE 1 RUN TIME: 1206 Specimen Inquiry RUN USER: INTERFACE PRISCA SALDANANT: RONALD RAMOSFERNANDA LOC: EAnup4EE U #: [id number] AGE/SX: 43/M ROOM: [facility] RE06/03/19REG DR:Beatris Bauer : [birth year] BED: 1 DIS: STATUS: ADM IN TLOC: SPEC #: [id number] RECD: 06/05/19 STATUS: PARRIS WISEMAN #: [id number] PRINCESS: 06/05/19 DR: Beatris Bauer MD ENTERED: 06/05/19 SP TYPE: HARDWARE OTHR DR: No Primary or Family Physician Self Referred Zach Osuna MD Alonso cotton MDORDERED: GROSS ONLY, REQUEST COMMENTS: LEFT ANKLE HARDWARE COPIES TO: No Primary or Family Physician Self Referred Zach Osuna MD [address] [address] Beatris Bauer MD [address] [place] [address] [email or web address] MD [address] [place] [address] PROCEDURES: GROSS ONLY (06/07/19-1131) REQUEST (06/05/19) CLINICAL HISTORY None FINAL DIAGNOSIS LEFT ANKLE METALLIC HARDWARE: GROSS ONLY. CPT CODE: [id number] CONTINUED ON NEXT PAGE RUN DATE: 06/07/19 [facility] - Lab PAGE 2 RUN TIME: 1206 Specimen Inquiry RUN USER: INTERFACE SPEC #: [id number] PATIENT: ABDIEL RAMOS #[id number] (Continued) MACROSCOPIC Specimen in the fresh state labeled "left ankle hardware" consists of two metallic plates,each 9 cm long with holes for screws in them, and several metallic screws. For grossdescription only. MICROSCOPIC Gross only Signed SIGNATURE ON FILE LoreleihuseyinNo DerickAnup 06/07/19 1206 END OF REPORT BASIC METABOLIC [id number] 09:07:00* Test Item Value Reference Range Interpretation Comme nts SODIUM (test code = NA) 139 mmol/l 134.0-147.0 N POTASSIUM (test code = K) 4.2 mmol/L 3.6-5.2 N CHLORIDE (test code = CL) 105 mmol/l 98.0-107.0 N CARBON DIOXIDE (test code = CO2) 28.1 mmol/l 21.0-33.0 N ANION GAP (test code = GAP) 10.1 0-20 N GLUCOSE (test code = GLU) 96 mg/dl 70.0-110.0 N BLOOD UREA NITROGEN (test co de = BUN) 15 mg/dl 7.0-18.0 N CREATININE (test code = CREAT) 1.17 mg/dL 0.60-1.30 N GFR NON BLACK (test code = GFRNONBLACK) 73 mL/min 95-105 L GFR BLACK (test code = GFRBLACK) 88 mL/min 115-127 L CALCIUM (test code = CA) 8.9 mg/dl 8.0-10.5 N CBC W/AUTO [id number] 08:55:00* Test Item Value Reference Range Interpretation Comme nts WHITE BLOOD CELL (test code = WBC) 7.5 K/mm3 4.5-11.0 N RED BLOOD CELL (test code = RBC) 3.87 M/mm3 4.40-5.90 L HEMOGLOBIN (test code = HGB) 11.9 gm/dL 13.0-17.0 L HEMATOCRIT (test code = HCT) 36.5 % 36.0-48.0 N MEAN CELL VOLUME (test code = MCV) 94.3 UM3 80.0-94.0 H MEAN CELL HGB (test code = MCH) 30.7 UUG 25.5-32.5 N MEAN CELL HGB CONCETRATION (test code = MCHC) 32.6 gm/dL 29.0-35.5 N RED CELL DISTRIBUTION WIDTH (test code = RDW) 13.1 % 11.5-15.0 N RED CELL DISTRIBUTION WIDTH SD (test code = RDW-SD) 45.2 fL 34.8-50.2 N PLATELET COUNT (test code = PLT) 474 K/mm3 150-400 H MEAN PLATELET VOLUME (test c ode = MPV) 8.7 fl 7.4-10.4 N NEUTROPHIL % (test code = NT%) 53.1 % 49.0-76.0 N IMMATURE GRANULOCYTE % (test code = IG%) 0.4 % 0.0-0.4 N LYMPHOCYTE % (test code = LY%) 30.4 % 23.0-38.0 N MONOCYTE % (test code = MO%) 9.0 % 1.0-10.0 N EOSINOPHIL % (test code = EO%) 6.4 % 1.0-5.0 H BASOPHIL % (test code = BA%) 0.7 % 0.0-1.0 N NEUTROPHIL # (test code = NT#) 4.0 K/mm3 2.4-6.3 N IMMATURE GRANULOCYTE # (test code = IG#) 0.03 x10 3/uL 0.00-0.07 N LYMPHOCYTE # (test code = LY#) 2.3 K/mm3 1.2-4.0 N MONOCYTE # (test code = MO#) 0.7 K/mm3 0.0-0.6 H EOSINOPHIL # (test code = EO#) 0.5 K/MM3 0.0-0.7 N BASOPHIL # (test code = BA#) 0.1 K/mm3 0.0-0.2 N - XR ANKLE 3 + V [id number] 09:41:00FAX: Zach Jose MD [phone] [place]: St: [facility] FAX: Dustin Jackson [phone] -- Name: ABDIEL RAMOS [facility] : 1975 Age/S: 43/M [address] [facility] Unit #: [id number] Loc: E.[address] [place], [place]: [place] [address] Acct: [id number] Dis Date: Status: ADM IN PHONE #: [phone] Exam Date: 06/06/2019921 FAX #: [phone] Reason: REM OF LATERAL HARDWARE. REASSESS BONE EXAMS: CPT CODE: [id number] XR ANKLE 3 + V [place] [address] Exam: X-ray left ankle 3 views HISTORY: Fracture with removal of hardware Location: D4 FINDINGS: Comparison is made exam of 06/02/2019. Compression plate and screws have been removed from the distal fibula with lucencies and defects from previous hardware. Oblique threaded screws stabilize well-healed medial malleolar fracture. Secondarytibiotalar and fibulotalar arthrosis noted. Soft tissue swelling is seen. IMPRESSION: 1. Stable postoperative ankle as detailed above. at 0941 Reported and signed by: Kar Emery M.D. CC: Zach Osuna MD; Beatris Bauer MD Technologist: [facility] Date/Time/By: 06/06/2019 (6141) : By: [email or web address] PAGE 1 Signed Report FAX: Zach Jose MD [phone] [place]: St: ADM FAX: Dustin Jackson [phone] Name: ABDIEL RAMOS [facility] : 1975 Age/S: 43/M [address] [facility] Unit #: [id number] Loc: [address] [place] [address] Phys: [place] [address] Acct: [id number] Dis Date: Status: ADM IN PHONE #: [phone] Exam Date: 06/06/2019921 FAX #: [phone] Reason: REM OF LAT ERAL HARDWARE. REASSESS BONE EXAMS: CPT CODE: [id number] XR ANKLE 3 + [place] [address] <Continued> Orig Print D/T: S: 06/06/2019 (9471) PAGE 2 Signed Report COMPREHENSIVE METABOLIC [id number] 09:17:00* Test Item Value Reference Range Interpretation Comme nts SODIUM (test code = NA) 138 mmol/l 134.0-147.0 N POTASSIUM (test code = K) 4.0 mmol/L 3.6-5.2 N CHLORIDE (test code = CL) 105 mmol/l 98.0-107.0 N CARBON DIOXIDE (test code = CO2) 26.2 mmol/l 21.0-33.0 N ANION GAP (test code = GAP) 10.8 0-20 N GLUCOSE (test code = GLU) 85 mg/dl 70.0-110.0 N BLOOD UREA NITROGEN (test co de = BUN) 14 mg/dl 7.0-18.0 N CREATININE (test code = CREAT) 1.24 mg/dL 0.60-1.30 N GFR NON BLACK (test code = GFRNONBLACK) 68 mL/min 95-105 L GFR BLACK (test code = GFRBLACK) 82 mL/min 115-127 L TOTAL PROTEIN (test code = PROT) 6.7 gm/dL 6.4-8.2 N ALBUMIN (test code = ALB) 2.7 gm/dl 3.2-4.7 L CALCIUM (test code = CA) 8.5 mg/dl 8.0-10.5 N BILIRUBIN TOTAL (test code = BILT) 0.3 mg/dl 0.0-1.0 N SGOT/AST (test code = AST) 21 Units/L 15.0-37.0 N SGPT/ALT (test code = ALT) 29 Units/L 12.0-78.0 N ALKALINE PHOSPHATASE TOTAL ( test code = ALKP) 78 Units/L 50.0-136.0 N [id number] 09:17:00* Test Item Value Reference Range Interpretation Comme nts MAGNESIUM (test code = MAG) 2.0 mg/dl 1.8-2.4 N CBC W/AUTO [id number] 07:36:00* Test Item Value Reference Range Interpretation Comme nts WHITE BLOOD CELL (test code = WBC) 8.5 K/mm3 4.5-11.0 N RED BLOOD CELL (test code = RBC) 3.65 M/mm3 4.40-5.90 L HEMOGLOBIN (test code = HGB) 11.4 gm/dL 13.0-17.0 L HEMATOCRIT (test code = HCT) 33.6 % 36.0-48.0 L MEAN CELL VOLUME (test code = MCV) 92.1 UM3 80.0-94.0 N MEAN CELL HGB (test code = MCH) 31.2 UUG 25.5-32.5 N MEAN CELL HGB CONCETRATION (test code = MCHC) 33.9 gm/dL 29.0-35.5 N RED CELL DISTRIBUTION WIDTH (test code = RDW) 13.2 % 11.5-15.0 N RED CELL DISTRIBUTION WIDTH SD (test code = RDW-SD) 45.1 fL 34.8-50.2 N PLATELET COUNT (test code = PLT) 415 K/mm3 150-400 H MEAN PLATELET VOLUME (test c ode = MPV) 8.6 fl 7.4-10.4 N NEUTROPHIL % (test code = NT%) 50.8 % 49.0-76.0 N IMMATURE GRANULOCYTE % (test code = IG%) 0.5 % 0.0-0.4 H LYMPHOCYTE % (test code = LY%) 30.1 % 23.0-38.0 N MONOCYTE % (test code = MO%) 9.5 % 1.0-10.0 N EOSINOPHIL % (test code = EO%) 8.4 % 1.0-5.0 H BASOPHIL % (test code = BA%) 0.7 % 0.0-1.0 N NEUTROPHIL # (test code = NT#) 4.3 K/mm3 2.4-6.3 N IMMATURE GRANULOCYTE # (test code = IG#) 0.04 x10 3/uL 0.00-0.07 N LYMPHOCYTE # (test code = LY#) 2.6 K/mm3 1.2-4.0 N MONOCYTE # (test code = MO#) 0.8 K/mm3 0.0-0.6 H EOSINOPHIL # (test code = EO#) 0.7 K/MM3 0.0-0.7 N BASOPHIL # (test code = BA#) 0.1 K/mm3 0.0-0.2 N VANCOMYCIN [id number] 13:17:00* Test Item Value Reference Range Interpretation Comme nts VANCOMYCIN TROUGH (test code = VANCT) 10.0 mcg/mL 10-20 N Other diseas e associated reference ranges: 10 - 15 mcg/mL Cellulitis, urinary tract infection 15 - 20 mcg/mL Bacteremia, infective endocarditis, osteomyelitis, meningitis, pneumonia, severe skin/soft tissue infection, spinal abscess Specimen comments: PLEASE DRAW VANCO TROUGH PRIOR TO 1400 DOSEComments to Licensed Clinical Psychologist: PLEASE MAKESURE VANCO IS NOT HANGING, THANK YOUVANCOMYCIN TROUGH 2019-06-05 08:37:00* Test Item Value Reference Range Interpretation Comme nts VANCOMYCIN TROUGH (test code = VANCT) 21.4 mcg/mL 10-20 H Other diseas e associated reference ranges: 10 - 15 mcg/mL Cellulitis, urinary tract infection 15 - 20 mcg/mL Bacteremia, infective endocarditis, osteomyelitis, meningitis, pneumonia, severe skin/soft tissue infection, spinal abscess BASIC METABOLIC [id number] 08:35:00* Test Item Value Reference Range Interpretation Comme nts SODIUM (test code = NA) 139 mmol/l 134.0-147.0 N POTASSIUM (test code = K) 4.6 mmol/L 3.6-5.2 N CHLORIDE (test code = CL) 104 mmol/l 98.0-107.0 N CARBON DIOXIDE (test code = CO2) 30.8 mmol/l 21.0-33.0 N ANION GAP (test code = GAP) 8.8 0-20 N GLUCOSE (test code = GLU) 87 mg/dl 70.0-110.0 N BLOOD UREA NITROGEN (test co de = BUN) 13 mg/dl 7.0-18.0 N CREATININE (test code = CREAT) 1.24 mg/dL 0.60-1.30 N GFR NON BLACK (test code = GFRNONBLACK) 68 mL/min 95-105 L GFR BLACK (test code = GFRBLACK) 82 mL/min 115-127 L CALCIUM (test code = CA) 8.5 mg/dl 8.0-10.5 N CBC W/AUTO [id number] 08:10:00* Test Item Value Reference Range Interpretation Comme nts WHITE BLOOD CELL (test code = WBC) 8.1 K/mm3 4.5-11.0 N RED BLOOD CELL (test code = RBC) 3.55 M/mm3 4.40-5.90 L HEMOGLOBIN (test code = HGB) 11.1 gm/dL 13.0-17.0 L HEMATOCRIT (test code = HCT) 33.3 % 36.0-48.0 L MEAN CELL VOLUME (test code = MCV) 93.8 UM3 80.0-94.0 N MEAN CELL HGB (test code = MCH) 31.3 UUG 25.5-32.5 N MEAN CELL HGB CONCETRATION (test code = MCHC) 33.3 gm/dL 29.0-35.5 N RED CELL DISTRIBUTION WIDTH (test code = RDW) 13.4 % 11.5-15.0 N RED CELL DISTRIBUTION WIDTH SD (test code = RDW-SD) 46.5 fL 34.8-50.2 N PLATELET COUNT (test code = PLT) 376 K/mm3 150-400 N MEAN PLATELET VOLUME (test c ode = MPV) 8.8 fl 7.4-10.4 N NEUTROPHIL % (test code = NT%) 54.9 % 49.0-76.0 N IMMATURE GRANULOCYTE % (test code = IG%) 0.5 % 0.0-0.4 H LYMPHOCYTE % (test code = LY%) 26.8 % 23.0-38.0 N MONOCYTE % (test code = MO%) 8.8 % 1.0-10.0 N EOSINOPHIL % (test code = EO%) 8.3 % 1.0-5.0 H BASOPHIL % (test code = BA%) 0.7 % 0.0-1.0 N NEUTROPHIL # (test code = NT#) 4.5 K/mm3 2.4-6.3 N IMMATURE GRANULOCYTE # (test code = IG#) 0.04 x10 3/uL 0.00-0.07 N LYMPHOCYTE # (test code = LY#) 2.2 K/mm3 1.2-4.0 N MONOCYTE # (test code = MO#) 0.7 K/mm3 0.0-0.6 H EOSINOPHIL # (test code = EO#) 0.7 K/MM3 0.0-0.7 N BASOPHIL # (test code = BA#) 0.1 K/mm3 0.0-0.2 N - XR ANKLE 2 VIEWS [id number] 10:03:00FAX: Zach Jose MD [phone] [place]: St: ADM FAX: Dustin Jackson [phone] -- Name: ABDIEL RAMOS [facility] : 1975 Age/S: 43/M [address] [facility] [address] Unit #: [id number] Loc: [address] [place], [place]: [place] [id number] Acct: [id number] Dis Date: Status: ADM IN PHONE #: [phone] Exam Date: 06/04/2019 0959 FAX #: [phone] Reason: HARDWARE REMOVAL LT ANKLE EXAMS: CPT CODE: [id number] XR ANKLE [address] [place] [address] Dictation location: H37. HISTORY: HARDWARE REMOVAL LT ANKLE FINDINGS: Fluoroscopy was utilized during the procedure. Fluoroscopy time 1 second. Photospot images: 1. Hardware has likely been removed from the fibula including the previously seen 2 side plates and multiple screws. No metal hardware seen along the fibula. 2 screws are seen through the medial malleolus. IMPRESSION: Hardware removal left ankle. at 1003 Reported and signed by: Marko East M.D. CC: Zach Osuna MD; Beatris Bauer MD Technologist: WALLACE BARRIENTOS [facility] Date/Time/By: 06/04/2019 (1003) : By: [email or web address] PAGE 1 Signed Report FAX: Zach Jose MD [phone] [place]: EM[facility]: [facility] FAX: Dustin Jackson [phone] Name: ABDEIL RAMOS [facility] : 1975 Age/S: 43/M [address] [facility] [address] [facility] Unit #: [id number] Loc: [address] [place], [place]: [place] [id number] Acct: [id number] Dis Date: Status: ADM IN PHONE #: [phone] Exam Date: 06/04/2019 0959 FAX #: [phone] Reason: HARDWARE REMOVAL LT ANKLE EXAMS: CPT CODE: [id number] XR ANKLE [address] [place] [id number] <Continued> Orig Print D/T: S: 06/04/2019 (6489) PAGE 2 Signed Report- XR FLUOROSCOPY 0-60 [id number] 10:03:00FAX: Zach Jose MD [phone] [place]: St: [facility] FAX: Dustin Jackson [phone] -- Name: ABDIEL RAMOS [facility] : 1975 Age/S: 43/M [address] [place] [address] Unit #: [id number] Loc: [address] [place] [address] [place]: [place] [address] Acct: [id number] Dis Date: Status: ADM IN PHONE #: [phone] Exam Date: 06/04/2019 0959 FAX #: [phone] Reason: HARDWARE REMOVAL LT ANKLE EXAMS: CPT CODE: [id number] XR FLUOROSCOPY 0-60 MIN 14990 Dictation location: [facility]. HISTORY: HARDWARE REMOVAL LT ANKLE FINDINGS: Fluoroscopy was utilized during the procedure. Fluoroscopy time 1 second. Photospot images: 1. Hardware has likely been removed from the fibula including the previously seen2 side plates and multiple screws. No metal hardware seen along the fibula. 2 screws are seen through the medial malleolus. IMPRESSION: Hardware removal left ankle. at 1003 Reported and signed by: Marko East M.D. CC: Zach Osuna MD; Beatris Bauer MD Technologist: WALLACE BARRIENTOS [facility] Date/Time/By: 06/04/2019 (1003) : By: [email or web address] PAGE 1 Signed Report FAX: Zach Jose MD [phone] [place]: St: ADM FAX: Dustin Jackson [phone] Name: ABDIEL RAMOS [facility] : 1975 Age/S: 43/M [address] [facility] Unit #: [id number] Loc: [address] Phys: [place] [address] Acct: [id number] Dis Date: Status: ADM IN PHONE #: [phone] Exam Date: 06/04/2019 0959 FAX #: [phone] Reason: HARDWARE REMOVAL LT ANKLE EXAMS: CPT CODE: [id number] XR FLUOROSCOPY 0-60 MIN 06010 <Continued> Orig Print D/T: S: 06/04/2019 (100) PAGE 2 Signed Report COMPREHENSIVE METABOLIC [id number] 07:34:00* Test Item Value Reference Range Interpretation Comme nts SODIUM (test code = NA) 140 mmol/l 134.0-147.0 N POTASSIUM (test code = K) 4.4 mmol/L 3.6-5.2 N CHLORIDE (test code = CL) 102 mmol/l 98.0-107.0 N CARBON DIOXIDE (test code = CO2) 31.1 mmol/l 21.0-33.0 N ANION GAP (test code = GAP) 11.3 0-20 N GLUCOSE (test code = GLU) 92 mg/dl 70.0-110.0 N BLOOD UREA NITROGEN (test co de = BUN) 15 mg/dl 7.0-18.0 N CREATININE (test code = CREAT) 1.31 mg/dL 0.60-1.30 H GFR NON BLACK (test code = GFRNONBLACK) 64 mL/min 95-105 L GFR BLACK (test code = GFRBLACK) 77 mL/min 115-127 L TOTAL PROTEIN (test code = PROT) 6.9 gm/dL 6.4-8.2 N ALBUMIN (test code = ALB) 2.7 gm/dl 3.2-4.7 L CALCIUM (test code = CA) 8.9 mg/dl 8.0-10.5 N BILIRUBIN TOTAL (test code = BILT) 0.3 mg/dl 0.0-1.0 N SGOT/AST (test code = AST) 21 Units/L 15.0-37.0 N SGPT/ALT (test code = ALT) 26 Units/L 12.0-78.0 N ALKALINE PHOSPHATASE TOTAL ( test code = ALKP) 79 Units/L 50.0-136.0 N [id number] 07:34:00* Test Item Value Reference Range Interpretation Comme nts MAGNESIUM (test code = MAG) 2.2 mg/dl 1.8-2.4 N CBC W/AUTO [id number] 07:21:00* Test Item Value Reference Range Interpretation Comme nts WHITE BLOOD CELL (test code = WBC) 8.1 K/mm3 4.5-11.0 N RED BLOOD CELL (test code = RBC) 3.80 M/mm3 4.40-5.90 L HEMOGLOBIN (test code = HGB) 11.8 gm/dL 13.0-17.0 L HEMATOCRIT (test code = HCT) 36.0 % 36.0-48.0 N MEAN CELL VOLUME (test code = MCV) 94.7 UM3 80.0-94.0 H MEAN CELL HGB (test code = MCH) 31.1 UUG 25.5-32.5 N MEAN CELL HGB CONCETRATION (test code = MCHC) 32.8 gm/dL 29.0-35.5 N RED CELL DISTRIBUTION WIDTH (test code = RDW) 13.6 % 11.5-15.0 N RED CELL DISTRIBUTION WIDTH SD (test code = RDW-SD) 47.0 fL 34.8-50.2 N PLATELET COUNT (test code = PLT) 343 K/mm3 150-400 N MEAN PLATELET VOLUME (test c ode = MPV) 9.1 fl 7.4-10.4 N NEUTROPHIL % (test code = NT%) 59.0 % 49.0-76.0 N IMMATURE GRANULOCYTE % (test code = IG%) 0.7 % 0.0-0.4 H LYMPHOCYTE % (test code = LY%) 23.6 % 23.0-38.0 N MONOCYTE % (test code = MO%) 10.4 % 1.0-10.0 H EOSINOPHIL % (test code = EO%) 5.7 % 1.0-5.0 H BASOPHIL % (test code = BA%) 0.6 % 0.0-1.0 N NEUTROPHIL # (test code = NT#) 4.8 K/mm3 2.4-6.3 N IMMATURE GRANULOCYTE # (test code = IG#) 0.06 x10 3/uL 0.00-0.07 N LYMPHOCYTE # (test code = LY#) 1.9 K/mm3 1.2-4.0 N MONOCYTE # (test code = MO#) 0.8 K/mm3 0.0-0.6 H EOSINOPHIL # (test code = EO#) 0.5 K/MM3 0.0-0.7 N BASOPHIL # (test code = BA#) 0.1 K/mm3 0.0-0.2 N - XR CHEST 1 [id number] 18:38:00FAX: Zach Jose MD [phone] [place]: [facility]: [facility] FAX: Dustin Jackson [phone] -- Name: ABDIEL RAMOS [facility] : 1975 Age/S: 43/M [address] [facility] Unit #: [id number] Loc: [address] [place], [place]: [place] [address] Acct: [id number] Dis Date: Status: ADM IN PHONE #: [phone] Exam Date: 06/03/2019 183 FAX #: [phone] Reason: PRE OP EXAMS: CPT CODE: [id number] XR CHEST 1 V 23623 Chest Radiograph History: PRE OP Comparison: May 02, 2018 Location: R16 A single frontal view of the chest is submitted. The heart appears unchanged in size. Pulmonary vasculature is unremarkable. There is minimal left basilar atelectasis. The bones appear unchanged. IMPRESSION: There is minimal left basilar atelectasis. at 1838 Reported and signed by: Iban Farmer M.D. CC: Zach Osuna MD; Beatris Bauer MD Technologist: REGINA GALLARDO Trntnrd Date/Time/By: 06/03/2019 (1837) : By: HimanshuPMT PAGE 1 Signed Report FAX: Zach Jose MD [phone] [place]: St: [facility] FAX: Dustin Jackson [phone] Name: ABDIEL RAMOS [facility] : 1975 Age/S: 43/M [address] [facility] Unit #: [id number] Loc: [address] [place], [place]: [place] [address] Acct: [id number] Dis Date: Status: ADM IN PHONE #: [phone] Exam Date: 06/03/2019 1835 FAX #: [phone] Reason: PRE OP EXAMS: CPT CODE: [id number] XR CHEST 1 V 68122 <Continued> Orig Print D/T: S: 06/03/2019 (5032) PAGE 2 Signed [id number] 15:04:00* Test Item Value Reference Range Interpretation Comme nts HGBA1C% (test code = HGBA1C%) 5.5 %A1C 4.8-6.0 N ESTIMATED AVERAGE GLUCOSE (t est code = EAG) 111 MG/DL COMPREHENSIVE METABOLIC [id number] 13:33:00* Test Item Value Reference Range Interpretation Comme nts SODIUM (test code = NA) 135 mmol/l 134.0-147.0 N POTASSIUM (test code = K) 4.1 mmol/L 3.6-5.2 N CHLORIDE (test code = CL) 100 mmol/l 98.0-107.0 N CARBON DIOXIDE (test code = CO2) 29.4 mmol/l 21.0-33.0 N ANION GAP (test code = GAP) 9.7 0-20 N GLUCOSE (test code = GLU) 97 mg/dl 70.0-110.0 N BLOOD UREA NITROGEN (test co de = BUN) 13 mg/dl 7.0-18.0 N CREATININE (test code = CREAT) 1.27 mg/dL 0.60-1.30 N GFR NON BLACK (test code = GFRNONBLACK) 66 mL/min 95-105 L GFR BLACK (test code = GFRBLACK) 80 mL/min 115-127 L TOTAL PROTEIN (test code = PROT) 7.1 gm/dL 6.4-8.2 N ALBUMIN (test code = ALB) 2.9 gm/dl 3.2-4.7 L CALCIUM (test code = CA) 8.9 mg/dl 8.0-10.5 N BILIRUBIN TOTAL (test code = BILT) 0.7 mg/dl 0.0-1.0 N SGOT/AST (test code = AST) 13 Units/L 15.0-37.0 L SGPT/ALT (test code = ALT) 19 Units/L 12.0-78.0 N ALKALINE PHOSPHATASE TOTAL ( test code = ALKP) 79 Units/L 50.0-136.0 N [id number] 13:33:00* Test Item Value Reference Range Interpretation Comme nts MAGNESIUM (test code = MAG) 2.1 mg/dl 1.8-2.4 N VITAMIN [id number] 13:33:00* Test Item Value Reference Range Interpretation Comme nts VITAMIN B12 (test code = VITB12) 306 pg/mL 193-986 N CBC W/AUTO [id number] 12:06:00* Test Item Value Reference Range Interpretation Comme nts WHITE BLOOD CELL (test code = WBC) 13.6 K/mm3 4.5-11.0 H RED BLOOD CELL (test code = RBC) 3.85 M/mm3 4.40-5.90 L HEMOGLOBIN (test code = HGB) 12.0 gm/dL 13.0-17.0 L HEMATOCRIT (test code = HCT) 35.1 % 36.0-48.0 L MEAN CELL VOLUME (test code = MCV) 91.2 UM3 80.0-94.0 N MEAN CELL HGB (test code = MCH) 31.2 UUG 25.5-32.5 N MEAN CELL HGB CONCETRATION (test code = MCHC) 34.2 gm/dL 29.0-35.5 N RED CELL DISTRIBUTION WIDTH (test code = RDW) 13.6 % 11.5-15.0 N RED CELL DISTRIBUTION WIDTH SD (test code = RDW-SD) 46.0 fL 34.8-50.2 N PLATELET COUNT (test code = PLT) 341 K/mm3 150-400 N MEAN PLATELET VOLUME (test c ode = MPV) 9.1 fl 7.4-10.4 N NEUTROPHIL % (test code = NT%) 73.6 % 49.0-76.0 N IMMATURE GRANULOCYTE % (test code = IG%) 0.6 % 0.0-0.4 H LYMPHOCYTE % (test code = LY%) 11.3 % 23.0-38.0 L MONOCYTE % (test code = MO%) 9.8 % 1.0-10.0 N EOSINOPHIL % (test code = EO%) 4.3 % 1.0-5.0 N BASOPHIL % (test code = BA%) 0.4 % 0.0-1.0 N NEUTROPHIL # (test code = NT#) 10.0 K/mm3 2.4-6.3 H IMMATURE GRANULOCYTE # (test code = IG#) 0.08 x10 3/uL 0.00-0.07 H LYMPHOCYTE # (test code = LY#) 1.5 K/mm3 1.2-4.0 N MONOCYTE # (test code = MO#) 1.3 K/mm3 0.0-0.6 H EOSINOPHIL # (test code = EO#) 0.6 K/MM3 0.0-0.7 N BASOPHIL # (test code = BA#) 0.1 K/mm3 0.0-0.2 N SED [id number] 15:45:00* Test Item Value Reference Range Interpretation Comme nts SED RATE (test code = SEDW) 84 mm/hr 0-15 H C REACTIVE [id number] 15:15:00* Test Item Value Reference Range Interpretation Comme nts C REACTIVE PROTEIN (test code = CRP) 30.0 mg/dL 0.0-0.9 H PLEASE MAKE NO TE OF NEW CRP REFERENCE RANGE BASIC METABOLIC [id number] 15:13:00* Test Item Value Reference Range Interpretation Comme nts SODIUM (test code = NA) 135 mmol/l 134.0-147.0 N POTASSIUM (test code = K) 3.9 mmol/L 3.6-5.2 N CHLORIDE (test code = CL) 96 mmol/l 98.0-107.0 L CARBON DIOXIDE (test code = CO2) 29.0 mmol/l 21.0-33.0 N ANION GAP (test code = GAP) 13.9 0-20 N GLUCOSE (test code = GLU) 97 mg/dl 70.0-110.0 N BLOOD UREA NITROGEN (test co de = BUN) 16 mg/dl 7.0-18.0 N CREATININE (test code = CREAT) 1.30 mg/dL 0.60-1.30 N GFR NON BLACK (test code = GFRNONBLACK) 64 mL/min 95-105 L GFR BLACK (test code = GFRBLACK) 78 mL/min 115-127 L CALCIUM (test code = CA) 9.3 mg/dl 8.0-10.5 N HEPATIC FUNCTION PANEL [id number] 15:13:00* Test Item Value Reference Range Interpretation Comme nts TOTAL PROTEIN (test code = PROT) 7.9 GM/DL 6.0-8.1 N ALBUMIN (test code = ALB) 3.3 gm/dL 3.2-4.7 N BILIRUBIN TOTAL (test code = BILT) 0.8 mg/dl 0.0-1.0 N BILIRUBIN DIRECT (test code = BILD) 0.2 mg/dl 0.0-0.3 N SGOT/AST (test code = AST) 16 Units/L 15.0-37.0 N SGPT/ALT (test code = ALT) 18 Units/L 12.0-78.0 N ALKALINE PHOSPHATASE TOTAL ( test code = ALKP) 88 Units/L 50.0-136.0 N BASIC METABOLIC [id number] 15:07:00* Test Item Value Reference Range Interpretation Comme nts SODIUM (test code = NA) 135 mmol/l 134.0-147.0 N POTASSIUM (test code = K) 3.9 mmol/L 3.6-5.2 N CHLORIDE (test code = CL) 96 mmol/l 98.0-107.0 L CARBON DIOXIDE (test code = CO2) 29.0 mmol/l 21.0-33.0 N ANION GAP (test code = GAP) 13.9 0-20 N GLUCOSE (test code = GLU) mg/dl 70.0-110.0 BLOOD UREA NITROGEN (test co de = BUN) mg/dl 7.0-18.0 CREATININE (test code = CREAT) mg/dL 0.60-1.30 GFR NON BLACK (test code = GFRNONBLACK) mL/min 95-105 GFR BLACK (test code = GFRBLACK) mL/min 115-127 CALCIUM (test code = CA) mg/dl 8.0-10.5 HEPATIC FUNCTION PANEL [id number] 15:07:00* Test Item Value Reference Range Interpretation Comme nts TOTAL PROTEIN (test code = PROT) gm/dL 6.4-8.2 ALBUMIN (test code = ALB) gm/dl 3.2-4.7 BILIRUBIN TOTAL (test code = BILT) mg/dl 0.0-1.0 BILIRUBIN DIRECT (test code = BILD) mg/dl 0.0-0.3 SGOT/AST (test code = AST) Units/L 15.0-37.0 SGPT/ALT (test code = ALT) Units/L 12.0-78.0 ALKALINE PHOSPHATASE TOTAL ( test code = ALKP) Units/L 50.0-136.0 LACTIC [id number] 15:05:00* Test Item Value Reference Range Interpretation Comme nts LACTIC ACID (test code = LACT) 0.7 MMOL/L 0.4-2.0 N PROTHROMBIN [id number] 15:04:00* Test Item Value Reference Range Interpretation Comme nts PROTHROMBIN TIME PATIENT (test code = PTP) 13.7 SECONDS 9.9-12.8 H INTERNATIONAL NORMAL RATIO (test code = INR) 1.2 0.89-1.14 H THE INR IS TO BE USED ONLY FOR MONITORING ORAL ANTICOAGULANTTHERAPY. THE FOLLOWING ARE SUGGESTED RANGES FROM THEAMERICAN COLLEGE OF CHEST PHYSICIANS:INDICATION INR VALUEPROPHYLAXIS OF VENOUS THROMBOSIS (ORTHOPEDIC SURGERY) 2.0 - 3.0PROPHYLAXIS OF VENOUS THROMBOSIS (OTHER THAN HIGH-RISK SURGERY) 2.0 - 3.0TREATMENT OF DEEP VEIN THROMBOSIS OR PULMONARY EMBOLISM 2.0 - 3.0PREVENTION OF SYSTEMIC EMBOLISM TISSUE HEART VALVES 2.0 - 3.0 ACUTE MYOCARDIAL INFARCTION (TO PREVENT SYSTEMIC EMBOLISM) 2.0 - 3.0 ACUTE MYOCARDIAL INFARCTION (TO PREVENT RECURRENT INFARCT) 2.5 - 3.0 VALVULAR HEART DISEASE 2.0 - 3.0 ATRIAL FIBRILATION 2.0 - 3.0BILEAFLET MECHANICAL VALVE IN AORTIC POSITION 2.0 - 3.0MECHANICAL PROSTHETIC VALVES (HIGH RISK) 2.5 - 3.5PRESENCE OF LUPUS ANTICOAGULANT OR ANTIPHOSPHOLIPID ANTIBODIES 2.5 - 3.5 Is patient on anticoagulants? NTHROMBOPLASTIN TIME [id number] 15:04:00* Test Item Value Reference Range Interpretation Comme nts THROMBOPLASTIN TIME PARTIAL (test code = PTT) 37.20 SECONDS 25.86-36.07 [facility] Therapeutic Range - APTT of 55.8-85.4 secondscorrelates with plasma heparin concentration of 0.2-0.4 u/mL New range effective - 04/24/2016 Is patient on anticoagulants? MDBC W/AUTO [id number] 14:51:00* Test Item Value Reference Range Interpretation Comme nts WHITE BLOOD CELL (test code = WBC) 16.7 K/mm3 4.5-11.0 H RED BLOOD CELL (test code = RBC) 4.32 M/mm3 4.40-5.90 L HEMOGLOBIN (test code = HGB) 13.7 gm/dL 13.0-17.0 N HEMATOCRIT (test code = HCT) 39.6 % 36.0-48.0 N MEAN CELL VOLUME (test code = MCV) 91.7 UM3 80.0-94.0 N MEAN CELL HGB (test code = MCH) 31.7 UUG 25.5-32.5 N MEAN CELL HGB CONCETRATION (test code = MCHC) 34.6 gm/dL 29.0-35.5 N RED CELL DISTRIBUTION WIDTH (test code = RDW) 13.4 % 11.5-15.0 N RED CELL DISTRIBUTION WIDTH SD (test code = RDW-SD) 45.2 fL 34.8-50.2 N PLATELET COUNT (test code = PLT) 340 K/mm3 150-400 N MEAN PLATELET VOLUME (test c ode = MPV) 9.2 fl 7.4-10.4 N NEUTROPHIL % (test code = NT%) 78.4 % 49.0-76.0 H IMMATURE GRANULOCYTE % (test code = IG%) 0.8 % 0.0-0.4 H LYMPHOCYTE % (test code = LY%) 9.8 % 23.0-38.0 L MONOCYTE % (test code = MO%) 9.3 % 1.0-10.0 N EOSINOPHIL % (test code = EO%) 1.3 % 1.0-5.0 N BASOPHIL % (test code = BA%) 0.4 % 0.0-1.0 N NEUTROPHIL # (test code = NT#) 13.1 K/mm3 2.4-6.3 H IMMATURE GRANULOCYTE # (test code = IG#) 0.13 x10 3/uL 0.00-0.07 H LYMPHOCYTE # (test code = LY#) 1.6 K/mm3 1.2-4.0 N MONOCYTE # (test code = MO#) 1.6 K/mm3 0.0-0.6 H EOSINOPHIL # (test code = EO#) 0.2 K/MM3 0.0-0.7 N BASOPHIL # (test code = BA#) 0.1 K/mm3 0.0-0.2 N - XR ANKLE 3 + V [id number] 14:43:00FAX: Veronica Harrison MD [phone] [place]: St: REG Name: ABDIEL RAMOS [facility] : 1975 Age/S: 43/M [address] [facility] Unit #: [id number] Loc: [address] Phys: [place] [address] Acct: [id number] Dis Date: Status: REG ER PHONE #: [phone] Exam Date: FAX #: [phone] Reason: ankle injury EXAMS: CPT CODE: [id number] XR ANKLE 3 + V LT [address] EXAM: - XR ANKLE 3 + V LT HISTORY: ankle injury Location code:C3 COMPARISON: 12/17/2018 FINDINGS: AP,oblique, and lateral view of the left ankle is provided. Postsurgical fixation of the distal fibulaand medial malleolus is again seen. The hardware appears intact and fully engaged. Lucency about the medial malleolus is unchanged. There is no new fracture or malalignment. Tibiotalar alignment is appropriate. IMPRESSION: 1. No acute interval change. at 1443 Reported and signed by: Christian Meza M.D. CC: Veronica Harrison MD Technologist: MARLENE PAULA Trnscrd Date/Time/By: 06/02/2019 (4239) : By: [email or web address] PAGE 1 Signed Report FAX: Veronica Harrison MD [phone] [place]: St: REG Name: ABDIEL RAMOS [facility] : 1975 Age/S: 43/M [address] [facility] Unit #: [id number] Loc: E.ERS2 [place], [place]: [place] [address] Acct: [id number] Dis Date: Status: REG ER PHONE #: [phone] Exam Date: 06/02/2019 1420 FAX #: [phone] Reason: ankle injury EXAMS: CPT CODE: [id number] XR ANKLE 3 + [place] [address] <Continued> Orig Print D/T: S: 06/02/2019 (4062) PAGE 2 Signed Report- CT LOWER EXTRM W/O C [id number] 09:07:00Patient Name: ABDIEL RAMOS Unit No: [id number] EXAMS: CPT CODE: [id number] [place] LOWER EXTRM W/[place] [address] [place] SCAN LEFT ANKLE WITH RECONSTRUCTION DIAGNOSIS: 1. There is internal fixation of bilateral malleoli fractures. Medial malleolus fracture is solidly healed with bridging callus present posteriorly and centrally accounting for approximately 40-50% of fracture surface area. There is posttraumatic deformity of the distal medial malleolus. Small associated articular surface cortical defect medially. 2. There is also internal fixation of the lateral malleolus with 2 bone plates and fixator screws. The lateral malleolus fracture is solidly healed. Fracture fragments are well aligned. COM MENT: 0.63 mm axial slices are obtained of the left ankle with reconstruction. Findings are as described above. at 0907 Reported and signed by: Angie Middleton MD CC: Sd Horton MD Technologist: RT Clayton(R) CTDI: DLP:Trnscrpt: 12/18/2018 (0907) tJOSHUAG [facility] NAME: ABDIEL RAMOS [address] [facility] PHYS: Sd Bledsoe : 1975 AGE: 43 SEX: M [place] [address] LOC: MaureenRAD PHONE #: [phone] EXAM DATE: 12/17/2018 STATUS: DEP CLI FAX #: [phone] RAD #: D/C DT PAGE 1 Signed Report Patient Name: ABDIEL RAMOS Unit No: [id number] EXAMS: CPT CODE: [id number] CT LOWER EXTRM W/[place] [address] <Continued> Orig Print D/T: S: 12/18/2018 (0910) [facility] NAME: ABDIEL RAMOS [address] [facility] PHYS: Sd Bledsoe : 1975 AGE: 43 SEX: M [place] [address] LOC: MaureenRADPHONE #: [phone] EXAM DATE: 12/17/2018 STATUS: DEP CLI FAX #: [phone] RAD #: D/C DT PAGE 2 Signed Report- XR CHEST 1 [id number] 14:13:00FAX: Melo Bhatt MD [place]: St: DEP Name: ABDIEL RAMOS [facility] : 1975 Age/S: 42/M [address] [facility] Unit #: [id number] Loc: ERASHEEDA [place], [place]: [place] [address] Acct: [id number] Dis Date: Status: ANGELA ER PHONE #: [phone] Exam Date: 05/02/2018 1410 FAX #: [phone] Reason: seizure EXAMS: CPT CODE: [id number] XR CHEST 1 V 25486 LOCATION: T18 EXAM: CHEST 1 VIEW INDICATION: seizure COMPARISON: None. TECHNIQUE: AP chest radiograph. FINDINGS: Lungs are clear bilaterally without effusion. Heart and mediastinum are normal in size and contour. Bones and peripheralsoft tissues are unremarkable. IMPRESSION: Lungs are clear. No acute abnormality. at 1413 Reported and signed by: Shashi Shen M.D. CC: Melo Bhatt MD Technologist: MICHELLE CORONA Trntnrd Date/Time/By: 05/02/2018 (2942) : By: [email or web address] PAGE 1 Signed Report FAX: Melo Bhatt MD [place]: St: DEP Name: ABDIEL RAMOS [facility] : 1975 Age/S: 42/M [address] [facility] Unit #: [id number] Loc: [place], [place]: [place] [address] Acct: [id number] Dis Date: Status: [facility] ER PHONE #: [phone] Exam Date: 019 1410 FAX #: [phone] Reason: seizure EXAMS: CPT CODE: [id number] XR CHEST 1 V 39194 <Continued> Orig Print D/T: S: 05/02/2018 (9138) PAGE 2 Signed Report- XR CHEST 1 [id number] 14:13:00FAX: Melo Bhatt MD [place]: St: PRE Name: ABDIEL RAMOS [facility] : 1975 [facility]S: 42[facility] Unit #: [id number] Loc: [place], [place]: [place] [address] Acct: [id number] Dis Date: Status: PRE ER PHONE #: [phone] Exam Date: 05/02/2018 1410 FAX #: [phone] Reason: seizure EXAMS: CPT CODE: [id number] XR CHEST 1 V 76985 LOCATION: T18 EXAM: CHEST 1 VIEW INDICATION: seizure COMPARISON: None. TECHNIQUE: AP chest radiograph. FINDINGS: Lungs are clear bilaterally without effusion. Heart and mediastinum are normal in size and contour. Bones and peripheral soft tissues are unremarkable. IMPRESSION: Lungs are clear. No acute abnormality. at 1413 Reported and signed by: Shashi Shen M.D. CC: Melo Bhatt MD Technologist: MICHELLE CORONA Trnscrd Date/Time/By: 05/02/2018 (1413) : By: [email or web address] PAGE 1 Signed Report FAX: Melo Bhatt MD [place]: St: PRE Name: ABDIEL RAMOS [facility] : 1975 Age/S: 42/M [address] [facility] Unit #: [id number] Loc: [place], [place]: [place] [address] Acct: [id number] Dis Date: Status: PRE ER PHONE #: [phone] Exam Date: 05/02/2018 1410 FAX #: [phone] Reason: seizure EXAMS: CPT CODE: [id number] XR CHEST 1 V 67675 (Continued) Orig Print D/T: S: 05/02/2018 (8600) PAGE 2 Signed ReportBASIC METABOLIC [id number] 14:12:00* Test Item Value Reference Range Interpretation Comme nts SODIUM (test code = NA) 135 mmol/l 134.0-147.0 N POTASSIUM (test code = K) 3.8 mmol/L 3.6-5.2 N CHLORIDE (test code = CL) 100 mmol/l 98.0-107.0 N CARBON DIOXIDE (test code = CO2) 26.0 mmol/l 21.0-33.0 N ANION GAP (test code = GAP) 12.8 0-20 N GLUCOSE (test code = GLU) 95 mg/dl 70.0-110.0 N BLOOD UREA NITROGEN (test co de = BUN) 12 mg/dl 7.0-18.0 N CREATININE (test code = CREAT) 1.12 mg/dL 0.60-1.30 N GFR NON BLACK (test code = GFRNONBLACK) 77 mL/min 95-105 L GFR BLACK (test code = GFRBLACK) 93 mL/min 115-127 L CALCIUM (test code = CA) 9.5 mg/dl 8.0-10.5 N Specimen comments: Clean CatchHEPATIC FUNCTION PANEL [id number] 14:12:00* Test Item Value Reference Range Interpretation Comme nts TOTAL PROTEIN (test code = PROT) 7.2 GM/DL 6.0-8.1 N ALBUMIN (test code = ALB) 3.8 gm/dL 3.2-4.7 N BILIRUBIN TOTAL (test code = BILT) 0.2 mg/dl 0.0-1.0 N BILIRUBIN DIRECT (test code = BILD) 0.1 mg/dl 0.0-0.3 N SGOT/AST (test code = AST) 16 Units/L 15.0-37.0 N SGPT/ALT (test code = ALT) 13 Units/L 12.0-78.0 N ALKALINE PHOSPHATASE TOTAL ( test code = ALKP) 74 Units/L 50.0-136.0 N Specimen comments: Clean CatchCREATINE KINASE (CK)2018-05-02 14:12:00* Test Item Value Reference Range Interpretation Comme nts CREATINE KINASE (CK) (test c ode = CK) 226 Units/L 39-308 N Specimen comments: Clean [id number] 14:12:00* Test Item Value Reference Range Interpretation Comme nts LIPASE (test code = LIP) 210 Units/L 65.0-230.0 N Specimen comments: Clean [id number] 14:12:00* Test Item Value Reference Range Interpretation Comme nts TROPONIN-I (test code = TROPI) <0.02 NG/ML 0.00-0.06 N REFERENCE RANGE TROPONIN I HEALTHY INDIVIDUALS: <0.06 ng/mL R/O ISCHEMIA: 0.07 - 0.60 ng/mL CUT-OFF RANGE FOR AMI: 0.60 - 1.5 ng/mL Specimen comments: Clean CatchVALPROIC ACID (DEPAKENE)2018-05-02 14:12:00* Test Item Value Reference Range Interpretation Comme nts VALPROIC ACID (DEPAKENE) (test code = VALP) <3.0 mcg/dL 50-100 L The physician must determine the appropriate therapeutic range for each patient. Specimen comments: Clean [id number] 14:12:00* Test Item Value Reference Range Interpretation Comme nts ALCOHOL (test code = ALC) 0.00 gm/dL 0.00-0.00 N ETHYL ALCOHOL [facility] - INTERPRETATION: 0.050 GM/DL - NOT INTOXICATED 0.100 GM/DL - INTOXICATED 0.350-0.450 GM/DL - SEVERELY INTOXICATED 0.550 GM/DL- FATAL INTOXICATION Specimen comments: Clean CatchDRUGS OF ABUSE SCREEN [id number] 14:07:00* Test Item Value Reference Range Interpretation Comments URN COCAINE (test code = COCAURN) NEGATIVE NEGATIVE Cocaine cut-off concentration: 300 ng/mL URN CANNABINOIDS (test code = CANNABURN) POSITIVE NEGATIVE A UNCONFIRMED INIT IAL SCREENING ONLY; SUGGEST ADDITIONALCONFIRMATORY TESTING.Cannabinoids cut-off concentration: 50 ng/mL URN AMPHETAMINE (test code = AMPHETURN) NEGATIVE NEGATIVE Amphetamine cut- off concentration: 1000 ng/mL URN BARBITURATE (test code = BARBITURN) NEGATIVE NEGATIVE Barbiturate cut- off concentration: 200 ng/mL URN BENZODIAZEPINE (test code = BENZOURN) NEGATIVE NEGATIVE Benzodiazepine c ut-off concentration: 200 ng/mL URN OPIATES (test code = OPIATURN) NEGATIVE NEGATIVE Opiates cut-off concentration: 200 ng/mL URN PHENCYCLIDINE (PCP) (test code = PHENCURN) NEGATIVE NEGATIVE Phencyclidine(PC P) cut-off concentration: 25 ng/ml URN METHADONE (test code = METHAURN) NEGATIVE NEGATIVE Methadone cut-o ff concentration: 300 ng/mL URINALYSIS [id number] 14:04:00* Test Item Value Reference Range Interpretation Comme nts UA COLOR (test code = COLU) YELLOW UA APPEARANCE (test code = APPU) CLEAR UA GLUCOSE DIPSTICK (test code = DGLUU) NORMAL mg/dl NORMAL UA BILIRUBIN DIPSTICK (test code = BILU) NEGATIVE mg/dL NEGATIVE UA KETONE DIPSTICK (test code = KETU) NEGATIVE mg/dl NEGATIVE UA SPECIFIC GRAVITY (test code = SGU) 1.020 1.000-1.030 UA BLOOD DIPSTICK (test code = EVANGELINA) 10 Eligio/micL Eligio/micL NEGATIVE A UA PH DIPSTICK (test code = JOSE) 5.0 5.0-9.0 UA PROTEIN DIPSTICK (test code = PROU) 30 mg/dl NEGATIVE UA UROBILINIOGEN DIPSTICK (test code = URO) NORMAL mg/dl NORMAL UA NITRITE DIPSTICK (test code = TENISHA) NEGATIVE NEGATIVE UA LEUKOCYTE ESTERASE DIPSTICK (test code = LEUU) NEGATIVE Zaheer/micL NEGATIVE UA WBC (test code = WBCU) 0-2 WBC/HPF NONE UA RBC (test code = RBCU) 1-3 RBC/HPF 0-3 UA EPITHELIAL CELLS (test code = EPIU) 0-3 EPI/HPF 0-3 UA BACTERIA (test code = BACU) TRACE NONE BASIC METABOLIC [id number] 14:01:00* Test Item Value Reference Range Interpretation Comme nts SODIUM (test code = NA) 135 mmol/l 134.0-147.0 N POTASSIUM (test code = K) 3.8 mmol/L 3.6-5.2 N CHLORIDE (test code = CL) 100 mmol/l 98.0-107.0 N CARBON DIOXIDE (test code = CO2) 26.0 mmol/l 21.0-33.0 N ANION GAP (test code = GAP) 12.8 0-20 N GLUCOSE (test code = GLU) 95 mg/dl 70.0-110.0 N BLOOD UREA NITROGEN (test co de = BUN) 12 mg/dl 7.0-18.0 N CREATININE (test code = CREAT) 1.12 mg/dL 0.60-1.30 N GFR NON BLACK (test code = GFRNONBLACK) 77 mL/min 95-105 L GFR BLACK (test code = GFRBLACK) 93 mL/min 115-127 L CALCIUM (test code = CA) 9.5 mg/dl 8.0-10.5 N Specimen comments: Clean DropboxHEPATIC FUNCTION PANEL [id number] 14:01:00* Test Item Value Reference Range Interpretation Comme nts TOTAL PROTEIN (test code = PROT) 7.2 GM/DL 6.0-8.1 N ALBUMIN (test code = ALB) 3.8 gm/dL 3.2-4.7 N BILIRUBIN TOTAL (test code = BILT) 0.2 mg/dl 0.0-1.0 N BILIRUBIN DIRECT (test code = BILD) 0.1 mg/dl 0.0-0.3 N SGOT/AST (test code = AST) 16 Units/L 15.0-37.0 N SGPT/ALT (test code = ALT) 13 Units/L 12.0-78.0 N ALKALINE PHOSPHATASE TOTAL ( test code = ALKP) 74 Units/L 50.0-136.0 N Specimen comments: Clean DropboxCREATINE KINASE (CK)2018-05-02 14:01:00* Test Item Value Reference Range Interpretation Comme nts CREATINE KINASE (CK) (test c ode = CK) 226 Units/L 39-308 N Specimen comments: Clean [id number] 14:01:00* Test Item Value Reference Range Interpretation Comme nts LIPASE (test code = LIP) 210 Units/L 65.0-230.0 N Specimen comments: Clean [id number] 14:01:00* Test Item Value Reference Range Interpretation Comme nts TROPONIN-I (test code = TROPI) <0.02 NG/ML 0.00-0.06 N REFERENCE RANGE TROPONIN I HEALTHY INDIVIDUALS: <0.06 ng/mL R/O ISCHEMIA: 0.07 - 0.60 ng/mL CUT-OFF RANGE FOR AMI: 0.60 - 1.5 ng/mL Specimen comments: Clean CatchVALPROIC ACID (DEPAKENE)2018-05-02 14:01:00* Test Item Value Reference Range Interpretation Comme nts VALPROIC ACID (DEPAKENE) (te st code = VALP) mcg/dL 50-100 Specimen comments: Clean [id number] 14:01:00* Test Item Value Reference Range Interpretation Comme nts ALCOHOL (test code = ALC) 0.00 gm/dL 0.00-0.00 N ETHYL ALCOHOL VA LUES - INTERPRETATION: 0.050 GM/DL - NOT INTOXICATED 0.100 GM/DL - INTOXICATED 0.350-0.450 GM/DL - SEVERELY INTOXICATED 0.550 GM/DL- FATAL INTOXICATION Specimen comments: Clean CatchURINALYSIS [id number] 13:56:00* Test Item Value Reference Range Interpretation Comme nts UA COLOR (test code = COLU) UA APPEARANCE (test code = APPU) UA GLUCOSE DIPSTICK (test code = DGLUU) NORMAL mg/dl NORMAL UA BILIRUBIN DIPSTICK (test code = BILU) NEGATIVE mg/dL NEGATIVE UA KETONE DIPSTICK (test code = KETU) NEGATIVE mg/dl NEGATIVE UA SPECIFIC GRAVITY (test code = SGU) 1.020 1.000-1.030 UA BLOOD DIPSTICK (test code = EVANGELINA) 10 Eligio/micL Eligio/micL NEGATIVE A UA PH DIPSTICK (test code = JOSE) 5.0 5.0-9.0 UA PROTEIN DIPSTICK (test code = PROU) 30 mg/dl NEGATIVE UA UROBILINIOGEN DIPSTICK (test code = URO) NORMAL mg/dl NORMAL UA NITRITE DIPSTICK (test code = TENISHA) NEGATIVE NEGATIVE UA LEUKOCYTE ESTERASE DIPSTICK (test code = LEUU) NEGATIVE Zaheer/micL NEGATIVE UA WBC (test code = WBCU) WBC/HPF NONE UA RBC (test code = RBCU) RBC/HPF 0-3 UA EPITHELIAL CELLS (test code = EPIU) EPI/HPF 0-3 UA BACTERIA (test code = BACU) NONE PROTHROMBIN [id number] 13:56:00* Test Item Value Reference Range Interpretation Comme nts PROTHROMBIN TIME PATIENT (test code = PTP) 10.8 SECONDS 9.9-12.8 N INTERNATIONAL NORMAL RATIO (test code = INR) 0.9 0.89-1.14 N THE INR IS TO BE USED ONLY FOR MONITORING ORAL ANTICOAGULANTTHERAPY. THE FOLLOWING ARE SUGGESTED RANGES FROM THEAMERICAN COLLEGE OF CHEST PHYSICIANS:INDICATION INR VALUEPROPHYLAXIS OF VENOUS THROMBOSIS (ORTHOPEDIC SURGERY) 2.0 - 3.0PROPHYLAXIS OF VENOUS THROMBOSIS (OTHER THAN HIGH-RISK SURGERY) 2.0 - 3.0TREATMENT OF DEEP VEIN THROMBOSIS OR PULMONARY EMBOLISM 2.0 - 3.0PREVENTION OF SYSTEMIC EMBOLISM TISSUE HEART VALVES 2.0 - 3.0 ACUTE MYOCARDIAL INFARCTION (TO PREVENT SYSTEMIC EMBOLISM) 2.0 - 3.0 ACUTE MYOCARDIAL INFARCTION (TO PREVENT RECURRENT INFARCT) 2.5 - 3.0 VALVULAR HEART DISEASE 2.0 - 3.0 ATRIAL FIBRILATION 2.0 - 3.0BILEAFLET MECHANICAL VALVE IN AORTIC POSITION 2.0 - 3.0MECHANICAL PROSTHETIC VALVES (HIGH RISK) 2.5 - 3.5PRESENCE OF LUPUS ANTICOAGULANT OR ANTIPHOSPHOLIPID ANTIBODIES 2.5 - 3.5 THROMBOPLASTIN TIME [id number] 13:56:00* Test Item Value Reference Range Interpretation Comme nts THROMBOPLASTIN TIME PARTIAL (test code = PTT) 32.50 SECONDS 25.86-36.07 N [facility] Therapeutic Range - APTT of 55.8-85.4 secondscorrelates with plasma heparin concentration of 0.2-0.4 u/mL New range effective - 04/24/2016 BASIC METABOLIC [id number] 13:52:00* Test Item Value Reference Range Interpretation Comme nts SODIUM (test code = NA) 135 mmol/l 134.0-147.0 N POTASSIUM (test code = K) 3.8 mmol/L 3.6-5.2 N CHLORIDE (test code = CL) 100 mmol/l 98.0-107.0 N CARBON DIOXIDE (test code = CO2) 26.0 mmol/l 21.0-33.0 N ANION GAP (test code = GAP) 12.8 0-20 N GLUCOSE (test code = GLU) mg/dl 70.0-110.0 BLOOD UREA NITROGEN (test co de = BUN) mg/dl 7.0-18.0 CREATININE (test code = CREAT) mg/dL 0.60-1.30 GFR NON BLACK (test code = GFRNONBLACK) mL/min 95-105 GFR BLACK (test code = GFRBLACK) mL/min 115-127 CALCIUM (test code = CA) mg/dl 8.0-10.5 Specimen comments: Clean DropboxHEPATIC FUNCTION PANEL [id number] 13:52:00* Test Item Value Reference Range Interpretation Comme nts TOTAL PROTEIN (test code = PROT) gm/dL 6.4-8.2 ALBUMIN (test code = ALB) gm/dl 3.2-4.7 BILIRUBIN TOTAL (test code = BILT) mg/dl 0.0-1.0 BILIRUBIN DIRECT (test code = BILD) mg/dl 0.0-0.3 SGOT/AST (test code = AST) Units/L 15.0-37.0 SGPT/ALT (test code = ALT) Units/L 12.0-78.0 ALKALINE PHOSPHATASE TOTAL ( test code = ALKP) Units/L 50.0-136.0 Specimen comments: Clean DropboxCREATINE KINASE (CK)2018-05-02 13:52:00* Test Item Value Reference Range Interpretation Comme nts CREATINE KINASE (CK) (test code = CK) Units/L 39-308 Specimen comments: Clean [id number] 13:52:00* Test Item Value Reference Range Interpretation Comme nts LIPASE (test code = LIP) Units/L 65.0-230.0 Specimen comments: Clean [id number] 13:52:00* Test Item Value Reference Range Interpretation Comme nts TROPONIN-I (test code = TROPI) NG/ML 0.00-0.06 Specimen comments: Clean CatchVALPROIC ACID (DEPAKENE)2018-05-02 13:52:00* Test Item Value Reference Range Interpretation Comme nts VALPROIC ACID (DEPAKENE) (te st code = VALP) mcg/dL 50-100 Specimen comments: Clean [id number] 13:52:00* Test Item Value Reference Range Interpretation Comme nts ALCOHOL (test code = ALC) gm/dL 0.00-0.00 Specimen comments: Clean CatchCBC W/AUTO [id number] 13:43:00* Test Item Value Reference Range Interpretation Comme nts WHITE BLOOD CELL (test code = WBC) 16.4 K/mm3 4.5-11.0 H WILL SCAN RED BLOOD CELL (test code = RBC) 4.09 M/mm3 4.40-5.90 L HEMOGLOBIN (test code = HGB) 13.0 gm/dL 13.0-17.0 N HEMATOCRIT (test code = HCT) 38.1 % 36.0-48.0 N MEAN CELL VOLUME (test code = MCV) 93.2 UM3 80.0-94.0 N MEAN CELL HGB (test code = MCH) 31.8 UUG 25.5-32.5 N MEAN CELL HGB CONCETRATION (test code = MCHC) 34.1 gm/dL 29.0-35.5 N RED CELL DISTRIBUTION WIDTH (test code = RDW) 13.4 % 11.5-15.0 N RED CELL DISTRIBUTION WIDTH SD (test code = RDW-SD) 45.4 fL 34.8-50.2 N PLATELET COUNT (test code = PLT) 301 K/mm3 150-400 N MEAN PLATELET VOLUME (test code = MPV) 9.3 fl 7.4-10.4 N NEUTROPHIL % (test code = NT%) 83.3 % 49.0-76.0 H IMMATURE GRANULOCYTE % (test code = IG%) 0.4 % 0.0-0.4 N LYMPHOCYTE % (test code = LY%) 8.3 % 23.0-38.0 L MONOCYTE % (test code = MO%) 7.3 % 1.0-10.0 N EOSINOPHIL % (test code = EO%) 0.5 % 1.0-5.0 L BASOPHIL % (test code = BA%) 0.2 % 0.0-1.0 N NEUTROPHIL # (test code = NT#) 13.6 K/mm3 2.4-6.3 H IMMATURE GRANULOCYTE # (test code = IG#) 0.07 x10 3/uL 0.00-0.07 N LYMPHOCYTE # (test code = LY#) 1.4 K/mm3 1.2-4.0 N MONOCYTE # (test code = MO#) 1.2 K/mm3 0.0-0.6 H EOSINOPHIL # (test code = EO#) 0.1 K/MM3 0.0-0.7 N BASOPHIL # (test code = BA#) 0.0 K/mm3 0.0-0.2 N - CT HEAD/BRAIN W/O [id number] 13:29:00FAX: Melo Bhatt MD [place]: [facility]: [facility] Name: ABDIEL RAMOS [facility] : 1975 Age/S: 42/M [address] [facility] Unit: [id number] Loc: [place], [place] Phys: [place] [id number] Acct: [id number] Dis Date: Status: [facility] ER PHONE #: [phone] Exam Date: 05/02/2018 1318 FAX #: [phone] Reason: seizure EXAMS: CPT CODE: [id number] CT HEAD/BRAIN W/O CONT [id number] EXAM: CT abdomen INDICATION: seizure COMPARISON: None at this time CT scan of the abdomen was performed without intravenous contrast. One or more of the following radiation dose reduction techniques was used: automated exposure control, adjustment of mA and/or KV according to patient size, and/or utilization of iterative rec onstruction technique. FINDINGS: Quality of Exam: Acceptable. LIVER: The liver is unremarkable. BILIARY SYSTEM: There is no biliary dilatation. SPLEEN: The spleen is unremarkable. PANCREAS: The pancreas is unremarkable. ADRENAL GLANDS: The adrenal glands are unremarkable. KIDNEYS: The kidneys appear unremarkable. No renal or ureteral stone is identified. There is no hydronephrosis. AORTA: Thereis no abdominal aortic aneurysm. THORACIC: Included images of the lower chest demonstrate no abnormalities. GASTROINTESTINAL: There is no imaging evidence of large or small bowel obstruction. BONES/SOFT TISSUES: No concerning bony lesion identified. LYMPHATICS: No enlarged lymph nodes by CT criteria. PERITONEUM/OTHER: No free air and no free fluid are identified. PAGE 1 Signed Report (CONTINUED) FAX: Melo Bhatt MD [place]: [facility]: [facility] Name: ABDIEL RAMOS [facility] : 1975 Age/S: 42/M [address] [facility] Unit: [id number] Loc: [place], [place]: [place] [address] Acct: [id number] Dis Date: Status: DEP ER PHONE #: [phone] Exam Date: 05/02/2018 1318 FAX #: [phone]: seizure EXAMS: CPT CODE: [id number] CT HEAD/BRAIN W/O CONT [id number] <Continued> Note is m yodit that the pelvis was not imaged. IMPRESSION: Unremarkable exam. at 1329 Reported and signed by: Iban Farmer M.D. CC:Melo Bhatt MD Technologist: EMANUEL PAZ; ИРИНА BELTRE Trnscrd Dt/Tm: 05/02/2018 (1699) [email or web address] Orig Print D/T: S: 05/02/2018 (4521 PAGE 2 Signed Report- CT HEAD/BRAIN W/O [id number] 13:29:00FAX: Melo Bhatt MD [place]: St: PRE Name: ABDIEL RAMOS [facility] : 1975 Age/S: 42/M [address] [facility] Unit: [id number] [place]: [place], [place] [address] Acct: [id number] Dis Date: Status: PRE ER PHONE #: [phone] Exam Date: 05/02/2018 1318 FAX #: [phone] Reason: seizure EXAMS: CPT CODE: [id number] CT HEAD/BRAIN W/O CONT [id number] EXAM: CT abdomen INDICATION:seizure COMPARISON: None at this time CT scan of the abdomen was performed without intravenous contrast. One or more of the following radiation dose reduction techniques was used: automated exposurecontrol, adjustment of mA and/or KV according to patient size, and/or utilization of iterative recon struction technique. FINDINGS: Quality of Exam: Acceptable. LIVER: The liver is unremarkable. BILIARY SYSTEM: There is no biliary dilatation. SPLEEN: The spleen is unremarkable. PANCREAS: The pancreas is unremarkable. ADRENAL GLANDS: The adrenal glands are unremarkable. KIDNEYS: The kidneys appear unremarkable. No renal or ureteral stone is identified. There is no hydronephrosis. AORTA: There is no abdominal aortic aneurysm. THORACIC: Included images of the lower chest demonstrate no abnormalities. GASTROINTESTINAL: There is no imaging evidence of large or small bowel obstruction. BONES/SOFTTISSUES: No concerning bony lesion identified. LYMPHATICS: No enlarged lymph nodes by CT criteria. P ERITONEUM/OTHER: No free air and no free fluid are identified. PAGE 1 Signed Report (CONTINUED) FAX: Melo Bhatt MD [place]: St: PRE Name: ABDIEL RAMOS [facility] : 1975 Age/S: 42/M [address] [facility] Unit: [id number] Loc: [place], [place]: [place] [address] Acct: [id number] Dis Date: Status: PRE ER PHONE #: [phone] Exam Date: 05/02/2018 1318 FAX #: [phone] Reason: seizure EXAMS: CPT CODE: [id number] CT HEAD/BRAIN W/O CONT [id number] (Continued) Note is made that the pelvis was not imaged. IMPRESSION: Unremarkable exam. at 1329 Reported and signed by: Iban Farmer M.D. CC: Melo Bhatt MD Technologist: EMANUEL PAZ; ИРИНА BELTRE Trnscrd Dt/Tm: 05/02/2018 (1329) [email or web address] Orig Print D/T: S: 05/02/2018 (1332 PAGE 2 Signed Report Notes Date/Time Note Provider Source 2019-12-19 13:59:00 [id number] +[id number]/PxJ AA/VebjnNZv/p5TJ8AESnR1DSTIrrq3GLY7049-63-78G38:5 9:00 [facility] ([facility])EMERGENCY PROVIDER REPORTREPORT#:[id number] REPORT STATUS: SignedDATE:12/19/19 TIME: 1359 PATIENT: ABDIEL RAMOS UNIT #: [id number]#: [id number] ROOM/BED:AGE: 44 SEX: M PCP PHYS: No Primary or Family PhysicianSERVICE DT: AUTHOR: Steve Mills * ALL edits or amendments must be made on the electronic/computer document * HPI-Rash/Abscess/Cellulitis GeneralConfirmed Patient YesInitial Greet Date/Time 12/19/19 1325 PresentationChief Complaint Red areaHx Obtained From PatientOnset Occurred Days ago (3)Symptom Duration Since onset ContextRecent Healthcare No recent doctor visit, No recent hospitalizationSimilar Sx Previous No Free Text HPI NotesFree Text HPI [id number] male presents the ER for chief complaint of redness to the left ankle. Patient states he had a open reduction internal fixation done to left ankle after a traumatic injury in 2018. Since that time he had to have a bone graft 2019, and 2 subsequent staph infections. Patient believes his postsurgical scar is redder than normal denies any current drainage from the wound denies any fever Review of Systems ROS StatementsAll systems rev neg except as marked. Focused Review of SystemsConstitutionalDenies: Chills, Fatigue, Fever, Lethargy, Malaise, Recent wt loss, Weakness - generalized. RespiratoryDenies: Cough, non-productive, Cough, productive, Dyspnea on exertion, Hemoptysis, Parox nocturnal dyspnea, Pleuritic pain, Shortness of breath, Wheezing. CardiovascularDenies: Chest pain, Dyspnea on exertion, Edema, Orthopnea, Palpitations, Parox nocturnal dyspnea, Syncope. GIDenies: Abdominal pain, Anorexia, Belching, Bloody/tarry stool, Constipation, Diarrhea, Dysphagia, Hematemesis, Hematochezia, Mucousy stool, Melena, Nausea, Rectal pain, Vomiting. MusculoskeletalReports: Extremity pain. Denies: Back pain, Extremity swelling, Joint pain, Joint swelling, Lumbar pain, Myalgia, Neck pain, Thoracic pain. Allergy/ImmunDenies: Allergic reaction, Anaphylaxis, Hives, Itching, Rhinorrhea, Sneezing. Past Medical History - AdultStated Complaint INFECTION LEFT ANKLEAllergiesCoded Allergies:No Known Allergies (06/02/19) Home MedicationsActive ScriptsHYDROcodone/APAP (NORCO 5/325) 1 TAB PO Q4H PRN PRN Pain HYDROcodone/APAP (NORCO 5/325) 1 TAB PO Q4H PRN PRN Pain #30 TABS Prov: 06/07/19 Reported MedicationsclonazePAM (KlonoPIN) 2 MG PO DAILY levETIRAcetam (KEPPRA) 500 MG PO BID Review of Nursing Notes Rev avail, and agreePast Medical History:Reports: Seizure disorder. Additional Medical HistoryBimal. Ankle fx 2018.Additional Surgical HistoryORIF 2018 Repeat surgery with bone graft 2/2 non-unios 2019Additional Family HistoryHTNAlcohol Use Denies EtOH useDrug Use Denies recreational drugsSmoking status for patients 13 years old or older: Current every day smokerPack years (pk/d)*(yrs): 1Date last smoked: still smokingOther Social History Local resident Physical Exam Vital SignsVital SignsFirst Documented: Result Date Time Pulse Ox 99 12/18 1325 B/P 131/83 12/18 132 B/P Mean 99 12/18 132 O2 Delivery Room air 12/18 1324 Temp 36.7 12/18 1324 Pulse 89 12/18 132 Resp 20 12/18 1324 Last Documented: Result Date Time Pulse Ox 99 10/22 1325 B/P 131/83 12/18 1325 B/P Mean 99 12/18 132 O2 Delivery Room air 12/18 1324 Temp 36.7 12/18 1324 Pulse 89 12/18 1324 Resp 20 12/18 1325 Review of Vital Signs Reviewed Focused PEGeneral/Const General/Const Awake, Alert, Well appearingResp/Chest Respiratory/Chest Breath sounds NL, Breath sounds = bilat, No respiratory distress, No rales, No rhonchi, No wheezingCardiovascular Cardiovascular Heart rate NL, Regular rhythm, Heart sounds NL, Peripheral circulation NLMS Lower Extrem Lower Ext/Pelvis/MS Full range of motion, No deformity, Neurologic intact, Vascular intact, No ligamentous injury, Tendon function NL Text/Dict NotesMild erythema to lateral left ankle no increased warmth no discharge no red streaking no compartment syndrome neurovascularly intactSkin Skin Dry, IntactNeurologic Neurologic Oriented X3, Speech NL, No motor deficits, No sensory deficits, CNII - XII intact Interpretation Diagnostics Point of Care TestingPulse Oximetry Pulse Ox % 100 On: Room air Interpretation Interpreted by me, Pulse oximetry normal Time 1403 Patient Discharge Departure Vital Signs/ConditionVital SignsFirst Documented: Result Date Time Pulse Ox 99 12/18 1325 B/P 131/83 12/18 1325 B/P Mean 99 12/18 132 O2 Delivery Room air 12/18 1324 Temp 36.7 12/18 1324 Pulse 89 12/18 132 Resp 20 12/18 1325 Last Documented: Result Date Time Pulse Ox 99 12/18 1325 B/P 131/83 12/18 1325 B/P Mean 99 12/18 1325 O2 Delivery Room air 12/18 132 Temp 36.7 12/18 132 Pulse 89 12/18 132 Resp 20 12/18 1325 All vital signs available at the time of this entry have been reviewed. Condition Improved Clinical ImpressionClinical ImpressionPrimary Impression: Cellulitis of left ankle Disposition DecisionDischarge )( Discharged to Home Yes )( Time 1406 )( Date 12/19/19 Discharge/Care PlanCounseled Regarding Diagnosis, Prescriptions, Need for follow-up, When to returnto EDPrescriptionsClindamycinPrescriptions Reviewed Risks, Benefits, Alternative treatmentReferralsNo Primary or Family Physician (PCP/Family) at 1406RPT #:[id number] OF REPORTEDEmergency department krwaxj2597-73-70B36:59:00E.[id number] ilable for patient qbycDLMDVWMVENUCER5476-23-81G18:07:08 [facility] 2019-12-19 13:59:00 [id number] eZkXtOxvhWn7TuKf6uZMd3wgrxFnl VpyV2qeEpXlreBTTdlu6ug3dMAXYCbcAmK4855-05-95A68:5 9:00 [facility] ([facility] PROVID[facility] REPORTREPORT#:[id number] REPORT STATUS: SignedDATE:12/19/19 TIME: 1359 PATIENT: ABDIEL RAMOS UNIT #: [id number]#: [id number] ROOM/BED:AGE: 44 SEX: M PCP PHYS: No Primary or Family PhysicianSERVICE AUTHOR: Steve Mills * ALL edits or amendments must be made on the electronic/computer document * Steve Mills 12/19/19 1359:HPI-Rash/Abscess/Cellulitis GeneralConfirmed Patient Yes PresentationChief Complaint Red areaHx Obtained From PatientOnset Occurred Days ago (3)Symptom Duration Since onset ContextRecent Healthcare No recent doctor visit, No recent hospitalizationSimilar Sx Previous No Free Text HPI NotesFree Text HPI [id number] male presents the ER for chief complaint of redness to the left ankle. Patient states he had a open reduction internal fixation done to left ankle after a traumatic injury in 2018. Since that time he had to have a bone graft 2019, and 2 subsequent staph infections. Patient believes his postsurgical scar is redder than normal denies any current drainage from the wound denies any fever Review of Systems ROS StatementsAll systems rev neg except as marked. Focused Review of SystemsConstitutionalDenies: Chills, Fatigue, Fever, Lethargy, Malaise, Recent wt loss, Weakness - generalized. RespiratoryDenies: Cough, non-productive, Cough, productive, Dyspnea on exertion, Hemoptysis, Parox nocturnal dyspnea, Pleuritic pain, Shortness of breath, Wheezing. CardiovascularDenies: Chest pain, Dyspnea on exertion, Edema, Orthopnea, Palpitations, Parox nocturnal dyspnea, Syncope. GIDenies: Abdominal pain, Anorexia, Belching, Bloody/tarry stool, Constipation, Diarrhea, Dysphagia, Hematemesis, Hematochezia, Mucousy stool, Melena, Nausea, Rectal pain, Vomiting. MusculoskeletalReports: Extremity pain. Denies: Back pain, Extremity swelling, Joint pain, Joint swelling, Lumbar pain, Myalgia, Neck pain, Thoracic pain. Allergy/ImmunDenies: Allergic reaction, Anaphylaxis, Hives, Itching, Rhinorrhea, Sneezing. Past Medical History - AdultStated Complaint INFECTION LEFT ANKLEAllergiesCoded Allergies:No Known Allergies (06/02/19) Home MedicationsActive ScriptsHYDROcodone/APAP (NORCO 5/325) 1 TAB PO Q4H PRN PRN Pain HYDROcodone/APAP (NORCO 5/325) 1 TAB PO Q4H PRN PRN Pain #30 TABS Prov: 06/07/19 Reported MedicationsclonazePAM (KlonoPIN) 2 MG PO DAILY levETIRAcetam (KEPPRA) 500 MG PO BID Review of Nursing Notes Rev avail, and agreePast Medical History:Reports: Seizure disorder. Additional Medical HistoryBimal. Ankle fx 2018.Additional Surgical HistoryORIF 2018 Repeat surgery with bone graft 2/2 non-unios 2019Additional Family HistoryHTNAlcohol Use Denies EtOH useDrug Use Denies recreational drugsSmoking status for patients 13 years old or older: Current every day smokerPack years (pk/d)*(yrs): 1Date last smoked: still smokingOther Social History Local resident Physical Exam Vital SignsVital SignsFirst Documented: Result Date Time Pulse Ox 99 12/18 1325 B/P 131/83 12/18 132 B/P Mean 99 12/18 1325 O2 Delivery Room air 12/18 1324 Temp 36.7 12/18 1324 Pulse 89 12/18 1325 Resp 20 12/18 132 Last Documented: Result Date Time Pulse Ox 99 12/18 1325 B/P 131/83 12/18 1325 B/P Mean 99 12/18 1325 O2 Delivery Room air 12/185 Temp 36.7 12/18 1324 Pulse 89 12/18 1325 Resp 20 12/18 1325 Review of Vital Signs Reviewed Focused PEGeneral/Const General/Const Awake, Alert, Well appearingResp/Chest Respiratory/Chest Breath sounds NL, Breath sounds = bilat, No respiratory distress, No rales, No rhonchi, No wheezingCardiovascular Cardiovascular Heart rate NL, Regular rhythm, Heart sounds NL, Peripheral circulation NLMS Lower Extrem Lower Ext/Pelvis/MS Full range of motion, No deformity, Neurologic intact, Vascular intact, No ligamentous injury, Tendon function NL Text/Dict NotesMild erythema to lateral left ankle no increased warmth no discharge no red streaking no compartment syndrome neurovascularly intactSkin Skin Dry, IntactNeurologic Neurologic Oriented X3, Speech NL, No motor deficits, No sensory deficits, CNII - XII intact Interpretation Diagnostics Point of Care TestingPulse Oximetry Pulse Ox % 100 On: Room air Interpretation Interpreted by me, Pulse oximetry normal Time 1403 Patient Discharge Departure Vital Signs/ConditionVital SignsFirst Documented: Result Date Time Pulse Ox 99 12/18 1325 B/P 131/83 12/18 1325 B/P Mean 99 12/18 1325 O2 Delivery Room air 12/18 132 Temp 36.7 12/18 132 Pulse 89 12/18 1325 Resp 20 12/18 1325 Last Documented: Result Date Time Pulse Ox 99 12/18 1325 B/P 131/83 12/18 1325 B/P Mean 99 12/18 1325 O2 Delivery Room air 12/18 132 Temp 36.7 12/18 132 Pulse 89 12/18 1325 Resp 20 12/18 1325 All vital signs available at the time of this entry have been reviewed. Condition Improved Clinical ImpressionClinical ImpressionPrimary Impression: Cellulitis of left ankle Disposition DecisionDischarge )( Discharged to Home Yes )( Time 1406 )( Date 12/19/19 Discharge/Care PlanCounseled Regarding Diagnosis, Prescriptions, Need for follow-up, When to returnto EDPrescriptionsClindamycinPrescriptions Reviewed Risks, Benefits, Alternative treatmentReferralsNo Primary or Family Physician (PCP/Family) Kortney Celaya 12/20/192050:HPI-Rash/Abscess/Cellulitis GeneralInitial Greet Date/Time 12/19/19 1325 Patient Discharge Departure Supervising Physician Note MidLv Saw Pt AloneI have reviewed the PA/NET LEAD ARCHITECT's note and plan of care. I was available for consultation as needed at all times during the patient's visit in the emergency department. I agree with the clinical impression, plan and disposition. at 1406 at 2051RPT #:[id number] OF REPORTEDEmercornerstone specialty hospital department lpqhox7244-17-28M07:59:00E.PSGZ67664565-8366GBNfn ilable for patient vjyoWIHVGMAGFBUKWN4161-83-59E46:51:51 [facility] 2019-06-07 15:49:00 [id number] x731me3d4cHZk7z5jrhZw7qfk406N 88A8G54+gT26zUMjuxju2NqFPMLmP3aZQq2220-26-85G44:4 9:00 [facility] ([facility])Discharge SummaryREPORT#:[id number] REPORT STATUS: SignedDATE:06/07/19 TIME: 154 PATIENT: ABDIEL RAMOS UNIT #: [id number]#: [id number] [address] [birth year] AGE: 43 SEX: M ATTEND: Beatris Bauer [facility] AUTHOR: Arnulfo Santamaria * ALL edits or amendments must be made on the electronic/computer document * PCP PCPDischarge to: home General InformationDate of admission:Observation Start Date: 06/02/19Date of admission: 06/03/19 Discharge date: 06/07/19Admission diagnosis:Infected hardware, left legDischarge diagnosis:SameHospital course:Mr. Abdiel Ramos is a 43-year-old male who originally suffered a severe accident back in 2018, which resulted in a left lower extremity bimalleolar ankle fracture. At that point in time patient underwent an ORIF at [facility] in September 2017. 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 Patient reports that he thought he had been doing well hasbeen using his bone stimulator as instructed. However he states that approximately 4 days ago, he started having some pain and redness to the lateralaspect of the left lower extremity. Patient states that it rapidly worsened andnow his entire foot is erythematous and approximately 8 inches of his leg. Patient also has what appears to be a pinpoint wound on the lateral aspect with oozing blood and pus coming out of it. In the emergency room patient looks severe enough that a code sepsis was called. His blood pressure on arrival was 125/84, heart rate 118 and afebrile. White blood cell count was elevated at 16.7 and BMP was unremarkable. Lactic acid was 0.7. C-reactive protein was 30. INR 1.2 and an ESR of 84. Blood cultures were ordered and remain pending. Ankle x-ray was done and there was no acute interval change from previous. Patient was started on IV vancomycin and admit. He has been seen and examined and chart reviewed. Ankle is erythematous and warm with pus and bleeding discharge to the lateral aspect. 1. LLE Cellulitis- Probable infected Hardware. Hx ORIF x 2, last one 06/2018 with bone graft. Drainage to lateral LE. Started on Vanc and Zosyn, consulted Dr Osuna for Eval. Previous Surgeries done at by other surgeons. WOuld benefit from MRI, but unable to do so given metal hardware. CT w IV contrast? Defer to Ortho. Also to consider ID. Cx wound.-S/P hardware removal and wash out. IV abx and add ID.-Responding well to abx and I/D. Afebrile and no leuk. Continue same.-Growing Strep Group G. ABX de-escalated to Rocephin. Posisble DC home tomorrowon PO ABX. 2. Sepsis- POA and 2/2 #1. Vanc and Zoayn. Blood cx - at 24 hrs.-Resolved. 3. KRYSTAL- Monitor closely while on vanc, IVF Pt cleared by ID on PO Cipro. Still some drainage to incision. Would like to monitor over night, but pt adamant about DC. D/W Dr Osuna, we will elt him go and give dressing change materials. He MUST F/U with Dr Osuna 1 week. He is advised to f/u sooner or return to ED if the leg worsens or increased drainage.Pt. condition on discharge: improved, stable Med Rec Med RecDischarge meds:Continue taking these medications:clonazePAM (KlonoPIN) 2 MG TAB 2 MILLIGRAM ORAL DAILY. levETIRAcetam (KEPPRA) 500 MG TAB 500 MILLIGRAM ORAL TWICE DAILY. Start taking the following new medications:HYDROcodone/APAP (NORCO 5/325) 1 TAB TAB 1 TABLET ORAL EVERY 4 HOURS NEEDED. as needed for Pain Qty = 30 No Refills ObjectiveVS/I OLast Documented: Result Date Time Pulse Ox 98 06/06 1129 B/P 122/73 06/06 1129 B/P Mean 89.3 06/06 1129 Temp 97.5 06/06 1129 Pulse 88 06/06 1129 Resp 14 06/06 1129 O2 Delivery Room air 06/06 0516 O2 Flow Rate 8.397575 06/03 1157 24 hour I O ending at 0700: 06/06 0700 06/05 1900 Intake Total 600.00 Output Total 2024 Balance 600.00 -202 Intake, IV 300.00 Intake, Oral 300 Number Voids 1 Output, Urine 2024 Patient Weight Weight (lb): 152Weight (oz): 5.43Weight (kg): 69.100 General appearance: alert, awake, oriented, no acute distress, pleasant, conversational, no respiratory distressHead/Eyes: atraumatic, EOMI, normocephalicENT: normal nose, normal sinus, moist mucosal membranesNeck: non-tender, no lymphadenopathy, no masses or swellingCardiovascular: regular rate rhythm, normal heart sounds, no murmurRespiratory: no distress, no tenderness, aerating well, symmetric expansionGI: soft, non-tender, no guarding, no reboundExtremities: moves all, no edema-all extremitiesMusculoskeletal: no CVA tenderness, no midline vertebral tend, no muscle spasmNeuro/TITLE I DIRECTOR: alert, oriented X 3, normal speechSkin: Dressing CDAT at this time ResultsFindings/Data:Laboratory Tests: 06/06 0749 Chemistry Sodium (134.0 - 147.0 mmol/l) 139 Potassium (3.6 - 5.2 mmol/L) 4.2 Chloride (98.0 - 107.0 mmol/l) 105 Carbon Dioxide (21.0 - 33.0 mmol/l) 28.1 Anion Gap (0 - 20) 10.1 BUN (7.0 - 18.0 mg/dl) 15 Creatinine (0.60 - 1.30 mg/dL) 1.17 Est GFR ( Amer) (115 - 127 mL/min) 88 L Est GFR (Non-Af Amer) (95 - 105 mL/min) 73 L Glucose (70.0 - 110.0 mg/dl) 96 Calcium (8.0 - 10.5 mg/dl) 8.9 Hematology WBC (4.5 - 11.0 K/mm3) 7.5 RBC (4.40 - 5.90 M/mm3) 3.87 L Hgb (13.0 - 17.0 gm/dL) 11.9 L Hct (36.0 - 48.0 %) 36.5 MCV (80.0 - 94.0 UM3) 94.3 H MCH (25.5 - 32.5 UUG) 30.7 MCHC (29.0 - 35.5 gm/dL) 32.6 RDW (11.5 - 15.0 %) 13.1 Plt Count (150 - 400 K/mm3) 474 H MPV (7.4 - 10.4 fl) 8.7 Neut % (Auto) (49.0 - 76.0 %) 53.1 Lymph % (Auto) (23.0 - 38.0 %) 30.4 [place] % (Auto) (1.0 - 10.0 %) 9.0 Eos % (Auto) (1.0 - 5.0 %) 6.4 H Baso % (Auto) (0.0 - 1.0 %) 0.7 Neut # (Auto) (2.4 - 6.3 K/mm3) 4.0 Lymph # (Auto) (1.2 - 4.0 K/mm3) 2.3 [place] # (Auto) (0.0 - 0.6 K/mm3) 0.7 H Eos # (Auto) (0.0 - 0.7 K/MM3) 0.5 Baso # (Auto) (0.0 - 0.2 K/mm3) 0.1 Immature Gran % (0.0 - 0.4 %) 0.4 Immature Gran # (0.00 - 0.07 x10 3/uL) 0.03 Discharge InstructionsDiet: RegActivity: as toleratedAdditional instructions:PCP [address] Osuna 1 week F/U sooner or return to ER if leg looks worse or has incr. drainage at 1554 RPT #:[id number] OF REPORTDSDischarge szvmuew1733-76-81C38:49:00E.[id number] ailable for patient xweaMKPRQVFBZRIQCZ2465-24-67Y73:55:12 [facility] 2019-06-07 12:52:00 [id number] YQbPf+3VqT5pBB6H7Bwl4P1L9j7jX MdjgxSSLO06/cs3Be0KTIPJA36xa+Km4wc0224-80-87A36:5 2:00 [facility] ([facility]ENTERInfectious Dis. Progress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 (Auto) (1.0 - 5.0 %) 8.3 H Baso % (Auto) (0.0 - 1.0 %) 0.7 Neut # (Auto) (2.4 - 6.3 K/mm3) 4.5 Lymph # (Auto) (1.2 - 4.0 K/mm3) 2.2 [place] # (Auto) (0.0 - 0.6 K/mm3) 0.7 H Eos # (Auto) (0.0 - 0.7 K/MM3) 0.7 Baso # (Auto) (0.0 - 0.2 K/mm3) 0.1 Immature Gran % (0.0 - 0.4 %) 0.5 H Immature Gran # (0.00 - 0.07 x10 3/uL) 0.04 Laboratory Tests 06/05 623 Toxicology Vancomycin Trough (10 - 20 mcg/mL) 21.4 H Microbiology:06/04 939 ANKLE: Gram Stain - NO ORGANISMS SEEN06/04 939 ANKLE: Anaerobic Culture - RES06/04 939 ANKLE: Wound Culture - RES 04/06 1610 ANKLE: Gram Stain - NO ORGANISMS SEEN06/02 1610 ANKLE: Anaerobic Culture - RES06/02 1610 ANKLE: Wound Culture - RES FEW STREPTOCOCCUS GROUP G 06/01 1442 BLOOD: Blood Culture - NO GROWTH AFTER 72 HOURS06/01 1420 BLOOD: Blood Culture - NO GROWTH AFTER 72 HOURS Diagnosis, Assessment Plan Free Text DxA P NotesFree text DxA P notes:ASSESSMENT:1. Left ankle lateral abscess with retained infected hardware s/p surgical removal with ankle debridement on 06/04/19. Initial wound culture is showing the presence of Group G Strep.2. Previous trauma to the left ankle s/p bone graft and hardware placement.3. Seizure disorder. RECOMMENDATIONS:1. Agree with Vancomycin 1 gm IV q.12 hours while cultures are pending.2. Agree with Zosyn 3.375 gm IV q.8 hours while culture are pending.3. Await final culture results.4. Surgery as per Dr. Osuna.5. Medical management as per the [facility]. at 1249 RPT #:[id number] OF REPORTEQAluyoxxkjxwl3478-27-93R11:23:00E.PDOC2 [id number] for patient upjzIVJIIGVCMJRSPZ0920-89-68L47:49:58 [facility] 2019-06-05 07:51:00 [id number] q/nt7dpFGN6rURSrN2YGBdLj4eVUx cNXsJ6v83U72/8VCUzebYIVBSVl3ckPjoE0146-90-91V29:5 1:00 [facility] ([facility]ENTEROrthopaedic Progress NoteREPORT#:[id number] REPORT STATUS: SignedDATE:06/05/19 TIME: 0751 PATIENT: ABDIEL RAMOS UNIT #: [id number]#: [id number] [address] [address]DOB: [birth year] AGE: 43 SEX: M ATTEND: Beatris Bauer [facility] AUTHOR: Zach Osuna MD * ALL edits or amendments must be made on the electronic/computer document * SubjectiveChief complaint:LEFT ANKLE SURGICAL SITE INFECTION ABSCESSS/P ORIF OF ANKLEHPI:POD 1 REMOVAL OF HARDWARE AND I AN D AND DEBRIDEMENT FEELING BETTER PREV WCI FROM 2018 NO NEW ISSUES Review of SystemsConstitutional:Denies: chills, fatigue, fever. Respiratory:Denies: SOB. Cardiovascular:Denies: chest pain. ObjectiveVS:Last Documented: Result Date Time Pulse Ox 96 06/04 744 B/P 117/72 06/04 744 B/P Mean 87.3 06/04 744 O2 Delivery Room air 06/04 744 Temp 36.4 06/04 744 Pulse 85 06/04 744 Resp 15 06/04 744 O2 Flow Rate 8.386961 06/03 1157 Patient Weight Weight (lb): 152Weight (oz): 8.96Weight (kg): 69.200 Medications:Active Meds + DC'd Last 24 HrsMiscellaneous Information 1 EACH ASDIR IV (CKD) Lidocaine HCl 0 .STK-MED ONE .ROUTE (DC) Propofol 20 ML .STK-MED ONE IV (DC) Undefined Medication 0 .STK-MED ONE .ROUTE (DC) Fentanyl Citrate 0 .STK-MED ONE IV (DC) Ketorolac Tromethamine 0 .STK-MED ONE .ROUTE (DC) Hydromorphone HCl 0 .STK-MED ONE .ROUTE (DC) Bacitracin 0 .STK-MED ONE .ROUTE (DC) Lidocaine HCl 0 .STK-MED ONE .ROUTE (DC) Midazolam HCl 0 .STK-MED ONE .ROUTE (DC) Propofol 20 ML .STK-MED ONE IV (DC) Fentanyl Citrate 0 .STK-MED ONE .ROUTE (DC) Caffeine Citrate 60 MG ASDIR ONE IV (DC) Hydrocodone Bitart/Acetaminophen 1 TAB Q4H PRN PRN PO Morphine Sulfate 4 MG Q4H PRN PRN IV Promethazine HCl 25 MG Q4H PRN PRN IM Sodium Chloride 1,000 ML .Q10H IV Vancomycin HCl 1,000 MG Q12H IV Sodium Chloride 250 MLPiperacillin Sod/Tazobactam Sod 3.375 GM Q8H IV Sodium Chloride 100 MLClonazepam 2 MG DAILY PO Levetiracetam 500 MG BID PO I O:24 hour I O ending at 0700: 06/04 0700 06/03 1900 Intake Total 1530.00 118 Output Total 1250 Balance 280.00 118 Intake, IV 1050.00 Intake, Oral 480 118 Number Voids 2 Output, Urine 1250 Patient 69.2 kg Weight Weight Bed scale Measurement Method Post-op: Post-op: day 1Status post:Left: Other. Ambulation status: ambulating with deviceNutrition assessment:The data set between the solid lines has been imported from the dietitian's assessment. Any exceptions have been noted under Provider comments. BMI Calculated: 23.2 Nutrition related diagnosis: Nutrition diagnosis details: Nutrition problem: Nutrition etiology: Nutrition signs and symptoms: Nutrition prescription: Dietitian name: Assessment completed: Provider comments on imported dietitian assessment: Physical ExamGeneral appearance: alert, awake, oriented, no acute distress, pleasant, conversational, mental status normal, no respiratory distressWound/incision Location: ankle Site condition: dressing saturated, dressing changed, edges approximated ResultsRadiology data:Recent Impressions:RADIOLOGY - XR ANKLE 2 VIEWS LT 06/03 924 Report Impression - Status: SIGNED Entered: 06/04/2019 1006 IMPRESSION: Hardware removal left ankle.Impression By: Aaron East M.D.SPECIAL PROCEDURES - XR FLUOROSCOPY 0-60 MIN 06/03 924 Report Impression - Status: SIGNED Entered: 06/04/2019 1006 IMPRESSION: Hardware removal left ankle.Impression By: Aaron East M.D. Diagnosis, Assessment PlanHospital course to date:IMPROVED POST OP Free text A P:S/P HARDWARE REMOVAL AND DEBRIDEMENT OF SOFT TISSUE AND BONE 4/7/20 DRESSING CHANGED INCISION LOOKS GOOD WBAT IV ABX PER ID THIS IS RELATED TO HIS PREV WORK RELATED ANKLE FX WITH 2 PREV SURGERIES. MOST LIKELY A CHRONIC INFECTION at 0755 [facility] #:[id number] OF REPORTPRProgress Pwsi4543-84-29Z02:51:00E.HGAC71901856-7012PBMztmw able for patient roddFNFGHZEWFVAIFH5958-74-33X03:55:49 [facility] 2019-06-04 16:22:00 [id number] 0Z5kKCp9wVahGxP+MV4G6uqALgK33 xlWikYMNpcZt5lmtgj1acnDeWDuyAn/OMC7575-59-81T35:2 2:00 [facility] ([facility])Pharmacy Prog.Note-VancomycinREPORT#:[id number] REPORT STATUS: SignedDATE:06/04/19 TIME: 162 PATIENT: ABDIEL RAMOS UNIT #: [id number]#: [id number] [address] [birth year] AGE: 43 SEX: M ATTEND: Beatris Bauer [facility] AUTHOR: Nathalie Patel [facility] * ALL edits or amendments must be made on the electronic/computer document * Vancomycin VancomycinGoal trough: 15-20 mcg/mlIndication for treatment:bone/joint infectionCurrent therapy:vancomycin 1gm iv q 12 hrWeight: Actual weight (kg): 69Labs:Laboratory Test : 06/03 05 Chemistry BUN (7.0 - 18.0 mg/dl) 15 Creatinine (0.60 - 1.30 mg/dL) 1.31 H Hematology WBC (4.5 - 11.0 K/mm3) 8.1 Treatment plan: consult, cont current regimen/doseAdditional Comments:HPI:Mr. Abdiel Ramos is a 43-year-old male who originally suffered a severe accident back in 2018, which resulted in a left lower extremity bimalleolar ankle fracture. At that point in time patient underwent an ORIF at [facility] in September 2017. 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 Patient reports that he thought he had been doing well hasbeen using his bone stimulator as instructed. However he states that approximately 4 days ago, he started having some pain and redness to the lateralaspect of the left lower extremity. Patient states that it rapidly worsened andnow his entire foot is erythematous and approximately 8 inches of his leg. Patient also has what appears to be a pinpoint wound on the lateral aspect with oozing blood and pus coming out of it. In the emergency room patient looks severe enough that a code sepsis was called. His blood pressure on arrival was 125/84, heart rate 118 and afebrile. White blood cell count was elevated at 16.7 and BMP was unremarkable. Lactic acid was 0.7. C-reactive protein was 30. INR 1.2 and an ESR of 84. Blood cultures were ordered and remain pending. Ankle x-ray was done and there was no acute interval change from previous. Patient was started on IV vancomycin and admit. He has been seen and examined and chart reviewed. Ankle is erythematous and warm with pus and bleeding discharge to the lateral aspect. Pharmacy consulted for vancomycin dosingConsulting physician: Dr Pimentel Assessment/PlanPt has received 3 doses vancomycin 1gm prior to consulttrough prior to 4th dose 06/04 @[facility]30[facility] dosing after trough resultsnoted: slight renal worsening at 1625 [facility] #:[id number] OF REPORTPRProgress Twgu3116-28-40O33:22:00E.OOEB21555884-1732VFDidvy able for patient pafgLGVLRGLZJZNKTH3087-69-83R81:25:25 [facility] 2019-06-04 15:07:00 [id number] hWbUL3xvWc873mCSrwRMhBCLWyM88 ETvT3hkVwTfd1SGbOV1nP2Bt3G84p0FRpM4898-71-64A38:0 7:[id number] [address] [address] [address] [place], [place] [address] PATIENT NAME: ABDIEL RAMOS ADMIT DATE: 06/03/19ACCOUNT NO: [id number] ROOM NO: E.434 AGE: 43 REPORT TYPE: eVASCULAR STUDY DATE OF : 77 SEX: M ADMITTING PHYSICIAN:Beatris Bauer MD ATTENDING PHYSICIAN:Beatris Bauer MD Exam Date: 06/04/2019 07:51:00 Exam Type: Non-Invasive Vascular Procedure Codes:61954 - Duplex scan of lower extremity arteries or arterial bypassgrafts; complete bilateral study , Lower Arterial Duplex () Conclusions Duplex interogation of bilateral lower extremities revealed no evidenceof arterial occlusive disease. Finding Grids Lower Arterial Duplex Waveforms Right Left External Iliac Artery T T Common Femoral Artery T T Prox Superficial Femoral Artery T T Mid Superficial Femoral Artery T T Distal Superficial Femoral Artery T T Popliteal Artery T T Anterior Tibial Artery T T Posterior Tibial Artery T T Bradley --------- T = Triphasic Measurements Right PSVName Value Units EIA 75.46 cm/sec INFORMATION SYSTEMS SECURITY MANAGER 82.93 cm/sec PATIENT NAME: ABDIEL RAMOS SFA - pro 88.56 cm/sec SFA - mid 109.6 cm/sec SFA - dis 77.31 cm/sec Popliteal 53.42 cm/sec ARIS - dis 46.39 cm/sec PASSENGER SOLICITOR - dis 67.47 cm/sec Left PSVName Value Units EIA 104.0 cm/sec INFORMATION SYSTEMS SECURITY MANAGER 96.99 cm/sec SFA - pro 96.99 cm/sec SFA - mid 106.8 cm/sec SFA - dis 85.75 cm/sec Popliteal 67.47 cm/sec ARIS - dis 68.88 cm/sec PASSENGER SOLICITOR - dis 57.63 cm/sec 15:07:13 at 1642 PATIENT NAME: ABDIEL RAMOS noteE.[id number] for patient oanpXRAWNYOWGCDPVP2063-71-83X94:42:41 [facility] 2019-06-04 13:49:00 DTjjxuwtteo96017445J 162MhQ95SLTaJCAw3J0XZlUtPJA7f R+BOADIMdExNA1lsqbwaHQjxVgHOyGjLmk3965-18-45U18:4 9:00 [facility] HospitalHospital[facility] Progress NoteREPORT#:[id number] REPORT STATUS: SignedDATE:06/04/19 TIME: 1349 PATIENT: ABDIEL RAMOS UNIT #: [id number]#: [id number] [address] [birth year] AGE: 43 SEX: M ATTEND: Beatris Bauer [facility] AUTHOR: Arnulfo Santamaria * ALL edits or amendments must be made on the electronic/computer document * SubjectiveChief Complaint:INfected hardware left LEPatient reports:Yes: pain controlled, resting comfortably. No: abdominal pain, chest pain, chills, cough, diarrhea, dizziness, fever, headache, nausea, shortness of breath, vomiting. Free Text Subj NotesFree Subj Notes:DOS from hardware removal and washout Review of SystemsConstitutional:Denies: chills, fatigue, lethargy, malaise, recent wt loss. Skin:Reports: swelling. Denies: abrasion, bruising, contusion, diaphoresis, ecchymosis, itching, rash. Allergy/Immun:Denies: allergic reaction, anaphylaxis, hives, rhinorrhea, sneezing. Eyes:Denies: redness, discharge, visual loss/blurred, diplopia. ENT:Denies: ear drainage, earache, mouth pain, sinus problem, sore throat. Respiratory:Denies: NORTON (dyspnea on exertion), hemoptysis, parox nocturnal dyspnea, pleurisy. Cardiovascular:Denies: chest pain, NORTON (dyspnea on exertion), edema, palpitations, parox nocturnal dyspnea. GI:Denies: abdominal pain, constipation, diarrhea, dysphagia. :Denies: dysuria, frequency, hematuria, nocturia. Musculoskeletal:Reports: extremity pain, extremity swelling, joint pain, joint swelling. Denies: arthritis. Heme:Denies: adenopathy, bleeding, bruising, petechiae. Endocrine:Denies: cold intolerance, heat intolerance, polyphagia. Neuro:Denies: bowel dysfunction, focal weakness, lightheaded, numbness, seizure. Psych:Denies: agitation, anxiety, change in mental status, delusional. All systems rev neg: except as marked Objective GeneralVS/I O:Vital Signs: Date Time Temp Pulse Resp B/P B/P Pulse O2 O2 Flow FiO2 Mean Ox Delivery Rate 06/03 1301 97.2 91 15 126/76 92.5 97 06/03 1157 Simple 8.929981 mask 06/03 1145 87 12 135/71 95 Room air 06/03 1130 80 12 126/61 99 Simple 8.837229 mask 06/03 1115 82 10 135/97 97 8.496277 06/03 1100 75 10 137/75 97 Room air 04 1045 80 12 142/75 98 Room air 06/03 1030 78 10 153/67 98 Room air 04/ 1015 75 13 135/97 100 Simple 8.752594 mask 06/03 1010 98.0 77 16 127/71 98 Simple 8.673039 mask / 0821 80 16 109/71 98 Room air 04/07 0333 97.7 90 18 106/68 80.6 94 Room air 04/ 2234 99.1 80 18 110/66 81.0 95 Room air 04/ 2054 98.6 91 18 110/72 84.9 96 Room air 04/ 1605 98.8 73 17 110/67 81.6 99 Room air 24 hour I O ending at 0700: 06/03 0700 06/02 1900 Intake Total 550.00 550.00 Output Total 1000 Balance 550.00 -450.00 Intake, IV 350.00 550.00 Intake, Oral 200 Output, Urine 1000 Patient Weight Weight (lb): Weight (oz): Weight (kg): 69.000 Physical ExamGeneral appearance: alert, awake, no acute distress, pleasantHead/Eyes: atraumatic, clear cornea, normocephalicENT: moist mucosal membranes, normal nose, normal sinusNeck: non-tender, no masses or swellingCardiovascular: tachycardia, normal heart soundsRespiratory: aerating well, clear to auscultation, symmetric expansionAbdomen: non-tender, soft, no distentionRectal: deferredExtremities: moves all, no calf tenderness, swelling to LLEMusculoskeletal: no CVA tenderness, no muscle spasm, no paraspinal tendernessNeuro/TITLE I DIRECTOR: alert, oriented X 3, CNII-XII intactSkin: LLE with warmth and erythema. Lateral aspect just proximal to the malleolus has an opening that is draining blood and possibly exudate.Psychiatry: normal affect ResultsFindings/Data:Laboratory Tests 06/03 0525 Chemistry Sodium (134.0 - 147.0 mmol/l) 140 Potassium (3.6 - 5.2 mmol/L) 4.4 Chloride (98.0 - 107.0 mmol/l) 102 Carbon Dioxide (21.0 - 33.0 mmol/l) 31.1 Anion Gap (0 - 20) 11.3 BUN (7.0 - 18.0 mg/dl) 15 Creatinine (0.60 - 1.30 mg/dL) 1.31 H Est GFR ( Amer) (115 - 127 mL/min) 77 L Est GFR (Non-Af Amer) (95 - 105 mL/min) 64 L Glucose (70.0 - 110.0 mg/dl) 92 Calcium (8.0 - 10.5 mg/dl) 8.9 Magnesium (1.8 - 2.4 mg/dl) 2.2 Total Bilirubin (0.0 - 1.0 mg/dl) 0.3 AST (15.0 - 37.0 Units/L) 21 ALT (12.0 - 78.0 Units/L) 26 Total Alk Phosphatase (50.0 - 136.0 Units/L) 79 Total Protein (6.4 - 8.2 gm/dL) 6.9 Albumin (3.2 - 4.7 gm/dl) 2.7 L Laboratory Tests 06/03 0525 Hematology WBC (4.5 - 11.0 K/mm3) 8.1 RBC (4.40 - 5.90 M/mm3) 3.80 L Hgb (13.0 - 17.0 gm/dL) 11.8 L Hct (36.0 - 48.0 %) 36.0 MCV (80.0 - 94.0 UM3) 94.7 H MCH (25.5 - 32.5 UUG) 31.1 MCHC (29.0 - 35.5 gm/dL) 32.8 RDW (11.5 - 15.0 %) 13.6 Plt Count (150 - 400 K/mm3) 343 MPV (7.4 - 10.4 fl) 9.1 Neut % (Auto) (49.0 - 76.0 %) 59.0 Lymph % (Auto) (23.0 - 38.0 %) 23.6 [place] % (Auto) (1.0 - 10.0 %) 10.4 H Eos % (Auto) (1.0 - 5.0 %) 5.7 H Baso % (Auto) (0.0 - 1.0 %) 0.6 Neut # (Auto) (2.4 - 6.3 K/mm3) 4.8 Lymph # (Auto) (1.2 - 4.0 K/mm3) 1.9 [place] # (Auto) (0.0 - 0.6 K/mm3) 0.8 H Eos # (Auto) (0.0 - 0.7 K/MM3) 0.5 Baso # (Auto) (0.0 - 0.2 K/mm3) 0.1 Immature Gran % (0.0 - 0.4 %) 0.7 H Immature Gran # (0.00 - 0.07 x10 3/uL) 0.06 Radiology data:Recent Impressions:RADIOLOGY - XR CHEST 1 V 06/02 1515 Report Impression - Status: SIGNED Entered: 06/03/2019 1841 IMPRESSION: There is minimal left basilar atelectasis. Impression By: Evangelina Farmer M.D.RADIOLOGY - XR ANKLE 2 VIEWS LT 06/03 924 Report Impression - Status: SIGNED Entered: 06/04/2019 1006 IMPRESSION: Hardware removal left ankle.Impression By: Aaron East M.D.SPECIAL PROCEDURES - XR FLUOROSCOPY 0-60 MIN 06/03 924 Report Impression - Status: SIGNED Entered: 06/04/2019 1006 IMPRESSION: Hardware removal left ankle.Impression By: Aaron East M.D. Diagnosis, Assessment PlanPlan discussed with: patient, nurse Free Text DxA P NotesFree text DxA P notes:1. LLE Cellulitis- Probable infected Hardware. Hx ORIF x 2, last one 06/2018 with bone graft. Drainage to lateral LE. Started on Vanc and Zosy, consulted Dr Osuna for Eval. Previous Surgeries done at by other surgeons. WOuld benefit from MRI, but unable to do so given metal hardware. CT w IV contrast? Defer to Ortho. Also to consider ID. Cx wound.-S/P hardware removal and wash out. IV abx and add ID. 2. Sepsis- POA and 2/2 #1. Vanc and Zoayn. Blood cx - at 24 hrs.-Resolved. 3. KRYSTAL- Monitor closely while on vanc, IVF at 1353 RPT #:[id number] OF REPORTPRProgress Swwp0525-16-18C07:49:00E.EIQR57532061-7365GPMcwli able for patient lxvfGPHSBAQLYPUYKI5819-02-27J85:53:47 [facility] 2019-06-04 10:13:00 [id number] noXQ9Y9HgFpKLmiWFx7CERaITpFgI qRvs5CWTYmMfGp8bNiL2fIVy2esxG4PEOI9197-08-65M18:1 [id number] [address] PATIENT NAME: ABDIEL RAMOS ADMIT DATE: 06/03/19ACCOUNT NO: [id number] DISCHARGE DATE: 06/07/19MEDICAL RECORD NO: [id number] ROOM NO: E.434 REPORT TYPE: OPERATIVE REPORT DATE OF : [birth year] AGE: 43 SEX: M ADMITTING PHYSICIAN:Beatris Bauer MD ATTENDING PHYSICIAN:Beatris Bauer MD OPERATION DATE: 06/04/2019 PREOPERATIVE DIAGNOSIS: Left ankle surgical wound abscess/infection withretained hardware. POSTOPERATIVE DIAGNOSIS: Deep infection/abscess, left ankle lateral surgicalincision involving lateral malleolar hardware. PROCEDURES:1. Incision and drainage of left ankle deep abscess.2. Removal of previous lateral hardware including 2 plates - Sanibel plateswith screws.3. Extensive debridement of wound including bone and soft tissue, incisionmeasuring 10 cm long with about 2 cm wide. SURGEON: Zach Osuna MD [facility] MANAGER: AN Gilmore ANESTHESIA: General. BLOOD LOSS: 150 mL. COMPLICATIONS: None. INDICATIONS: This is a 43-year-old who had a previous work-related injurysustaining a bimalleolar left ankle fracture that was initially treated in 2018and resulted in a nonunion. He underwent a repeat internal fixation of thebimalleolar fracture with iliac crest bone grafting in the summer of 2018. Thepatient had continued pain and eventually with the pain management. About 4 to5 days ago, the lateral incision became very hot, red, and swollen and then afew days later began draining a purulent type of fluid from the wound. Iexplained to him the various treatment options. I suspected that he may havehad a low-grade infection that turned into an abscess. I offered him hardwareremoval and debridement of the abscess cavity, he accepted. PROCEDURE IN DETAIL: After he was correctly identified and properly consented,he was brought to the operating room. He underwent a general anesthesia. Tourniquet was applied to the left upper leg over Webril. The left leg wasprepped and draped. A formal timeout was performed. At the end of the timeout,we then exsanguinated the leg and inflated the tourniquet. I opened up the lateral incision. He had a 1 cm opening that was draining PATIENT NAME: ABDIEL RAMOS purulence that directly communicated with the previous hardware. The incisionwas opened up in its entirety. I was able to expose both the anterior and thelateral plate along the distal fibula. I removed the screws from the lateralplate initially and then removed that plate and then also removed the screwsfrom the anterior plate and removed that plate as well. I took deep cultures. I then began debriding the soft tissues with a rongeur as well as sharply. Lukaszo used curettes on the holes left in the bone. I also used a 2.7-mm drillbit to drill out the previous screw holes to debride the screw holes further. We then copiously irrigated with about 6 liters of bacitracin-impregnatedsolution. At the end of the procedure, the wound was very clean. Nocomplications. He appeared to have bridging bony callus along the posterioraspect of the lateral malleolar and distal fibular fracture. We then beganclosing. I used some 0 Vicryl and some 2-0 Vicryl in the deeper tissues andthen we chose some 0 Prolene to reapproximate the skin edges without excessivetension. It was dressed with Xeroform, 4 x 4's, Kerlix, and Yovani wrap. Then, hewas awakened and we moved him back to the recovery room in stable condition. Dictated By: Zach Osuna MD WT: OP:E.SONI/ESTRELLA/NTSDD: 06/04/2019 10:13:42DT: 06/04/2019 11:42:32Conf#: [id number]/DID#: [id number] Authenticated by Zach Osuna MD On 06/25/2019 12:48:21 PM at 1248 PATIENT NAME: ABDIEL RAMOS bsyvxl7732-99-52T03:42:00E.[id number] lable for patient epzeNVHCNRPRULSDOW4720-42-02R47:48:50 [facility] 2019-06-03 17:49:00 [id number] 2AbihlOXGGX8iI9AQ8f7ZL6dXB8Sl [facility]/exzN71m7Ve4caqq7MD4WSBMlV4E5k30520-52-19D56:4 9:[id number] [facility] [address] [place], [place] [address] PATIENT NAME: ABDIEL RAMOS ADMIT DATE: 06/03/19ACCOUNT NO: [id number] DISCHARGE DATE: 06/07/19MEDICAL RECORD NO: [id number] ROOM NO: E.434 REPORT TYPE: CONSULTATION REPORT DATE OF : [birth year] AGE: 43 SEX: M ADMITTING PHYSICIAN:Beatris Bauer MD ATTENDING PHYSICIAN:Beatris Bauer MD CONSULTATION DATE: 06/03/2019 CONSULTING PHYSICIAN: Zach Osuna MD REASON FOR CONSULTATION: Left ankle lateral abscess with retained infectedhardware. HISTORY: This is a 43-year-old gentleman who originally sustained awork-related injury in 2018. He [facility] at that[facility]. He had a closed bimalleolar fracture. He underwent open reduction andinternal fixation at [facility] in September [facility] [address] Ricketts. He had persistent pain in that left ankle and was eventuallyreferred to Dr. [facility]. He underwent a second surgery in June 2018. He had hardware removal fromboth the medial and lateral side. He had iliac crest bone grafting to bothsides. He was double plated from the lateral side. Postoperatively, thepatient continued to have severe pain. He was eventually sent to painmanagement and has been taking pain management ever since then. A few monthsafter the surgery, he noticed either a small piece of bone or some suture comingto the surface. He was treated in a conservative fashion. It seemed to getbetter, but the pain is always persisted and now approximately 4 days ago hestarted getting marked redness and swelling in the left ankle, difficultywalking. He was initially tried on some oral antibiotics, but he [facility]the [facility]. He was admitted for IVantibiotics and surgical evaluation. An area about 8 mm opened up laterally andfluid consistent with bloody fluid was draining from it. He had a high sed rateof 84 and high C-reactive protein of 30. He has been placed on IV antibioticsand the erythema and tenderness continued. The pus is oozing out of the woundthrough that opening that is part of the lateral incision that was previouslyused for the ORIF of the ankle fracture. A code sepsis was called in theEmergency Room. I have been asked to see him in regards to emergent incisionand drainage and possible hardware removal and other surgical indicatedprocedures. PAST MEDICAL HISTORY: Seizure disorder for which he takes 2 medications athome. SOCIAL HISTORY: Positive for both tobacco use as well as alcohol use. Deniesany recreational drug use. He is a current every-day smoker. He is a localresident. PAST SURGICAL HISTORY: Include the 2 previous above-mentioned surgeries, one [id number] and one in 2019 with the iliac crest bone grafting. PATIENT NAME: ABDIEL RAMOS HOME MEDICATIONS: Include clonazepam and Keppra. ALLERGIES: NO KNOWN DRUG ALLERGIES. OCCUPATION: He was working for [employer]. I do not believe he is working anylonger. REVIEW OF SYSTEMS: Denies any chest pains or shortness of breath. He has hadno GI or symptoms. PHYSICAL EXAMINATION:GENERAL: He is awake and alert gentleman of 43 years. No obvious acutedistress.VITAL SIGNS: Reveal temperature of 37.1 Celsius, pulse anywhere from 70 to 100,respirations 18, blood pressure 110/67 range, pulse oximetry 95% to 99%.EXTREMITIES: The left ankle reveals a marked amount of erythema, markedtenderness laterally. There is an 8-mm opening in the previous lateral ankleincision that is draining purulent fluid and appears to go deep into thehardware of the left ankle. The medial side of the ankle appears to beuninvolved. Pulses are intact. Sensory exam is intact. LABORATORY STUDIES: Reveal an elevated WBC count of 13.6, hemoglobin 12.0,platelet count 341,000. Basic metabolic panel was unremarkable, glucose 97. Hemoglobin A1c 5.5. Liver function tests were normal. Albumin is low at 2.9. DIAGNOSTIC DATA: X-rays reveal the lateral malleolus to be double plated withwhat appears to be a union and the medial side medial malleolar fracture wastreated with cannulated screws and that appears to have healed as well. Overallalignment is good. ASSESSMENT: A 43-year-old with a deep abscess involving the left ankle lateralside fracture with draining purulence and a marked degree of erythema, aprevious work-related injury with a closed bimalleolar fracture that has had 2separate operations, now complicated by deep infection and chronic pain forwhich he is going to pain management. PLAN: I recommended removal of the hardware with incision and drainage of thisdeep abscess to prevent further worsening and spreading of the infection. Ithink this will be done in urgent fashion. He is agreeable to this, so we willdo it first thing in the a.m. We will procure the necessary screwdrivers forthe hardware removal. Risks, benefits, and complications were discussed withhim. I believe, it is immediately medically necessary to perform this operationand any delay could cause worsening of this infection and put him at some riskfor deeper infection with possibility of limb loss and even if he were tobecome more septic. Dictated By: Zach Osuna MD WT: CON:DARIEN/ESTRELLA/NTSDD: 06/03/2019 17:49:45DT: 06/03/2019 20:51:05Conf#: [id number]/DID#: [id number] PATIENT NAME: ABDIEL RAMOS LAUREANO Authenticated by Zach Osuna MD On 06/25/2019 12:48:14 PM at 1248 PATIENT NAME: ABDIEL RAMOS :51:00E.DE [id number] for patient gcmkTUEPWTTTDTIPYY3986-07-75R14:48:50 [facility] 2019-06-03 13:48:00 LHdyvqcfopg27703987s mL67xhizNu/t5Cl0Xlzav6Zokivos EMsVkJM4hehWo9oQybinexz4q58BYgpTbU2513-83-61M96:4 8:00 [facility] ([facility])Hospitalist History PhysicalREPORT#:[id number] REPORT STATUS: SignedDATE:06/03/19 TIME: 1348 PATIENT: ABDIEL RAMOS UNIT #: [id number]#: [id number] ROOM/BED: 434-1DOB: [birth year] AGE: 43 SEX: M ATTEND: Beatris Bauer [facility] AUTHOR: Arnulfo Santamaria * ALL edits or amendments must be made on the electronic/computer document * History of Present Illness HPIChief complaint:Left LE cellulitis, probable infected hardwarePCP:PCP: No Primary or Family Physician HPI:Mr. Abdiel Ramos is a 43-year-old male who originally suffered a severe accident back in 2018, which resulted in a left lower extremity bimalleolar ankle fracture. At that point in time patient underwent an ORIF at [facility] in September 2017. 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 Patient reports that he thought he had been doing well hasbeen using his bone stimulator as instructed. However he states that approximately 4 days ago, he started having some pain and redness to the lateralaspect of the left lower extremity. Patient states that it rapidly worsened andnow his entire foot is erythematous and approximately 8 inches of his leg. Patient also has what appears to be a pinpoint wound on the lateral aspect with oozing blood and pus coming out of it. In the emergency room patient looks severe enough that a code sepsis was called. His blood pressure on arrival was 125/84, heart rate 118 and afebrile. White blood cell count was elevated at 16.7 and BMP was unremarkable. Lactic acid was 0.7. C-reactive protein was 30. INR 1.2 and an ESR of 84. Blood cultures were ordered and remain pending. Ankle x-ray was done and there was no acute interval change from previous. Patient was started on IV vancomycin and admit. He has been seen and examined and chart reviewed. Ankle is erythematous and warm with pus and bleeding discharge to the lateral aspect. 06/02/19 1441:[Embedded Image Not Available]Laboratory Tests: 06/01 06/01 06/01 1441 1441 1441 Chemistry Sodium (134.0 - 147.0 mmol/l) 135 Potassium (3.6 - 5.2 mmol/L) 3.9 Chloride (98.0 - 107.0 mmol/l) 96 L Carbon Dioxide (21.0 - 33.0 mmol/l) 29.0 Anion Gap (0 - 20) 13.9 BUN (7.0 - 18.0 mg/dl) 16 Creatinine (0.60 - 1.30 mg/dL) 1.30 Est GFR ( Amer) (115 - 127 mL/min) 78 L Est GFR (Non-Af Amer) (95 - 105 mL/min) 64 L Glucose (70.0 - 110.0 mg/dl) 97 Lactic Acid (0.4 - 2.0 MMOL/L) 0.7 Calcium (8.0 - 10.5 mg/dl) 9.3 Total Bilirubin (0.0 - 1.0 mg/dl) 0.8 Direct Bilirubin (0.0 - 0.3 mg/dl) 0.2 AST (15.0 - 37.0 Units/L) 16 ALT (12.0 - 78.0 Units/L) 18 Total Alk Phosphatase (50.0 - 136.0 Units/L) 88 C-Reactive Protein (0.0 - 0.9 mg/dL) 30.0 H Total Protein (6.0 - 8.1 GM/DL) 7.9 Albumin (3.2 - 4.7 gm/dL) 3.3 Coagulation INR (0.89 - 1.14) 1.2 H PTT (Bartholomew) (25.86 - 36.07 SECONDS) 37.20 H PT Patient/Control Mix (9.9 - 12.8 SECONDS) 13.7 H Hematology WBC (4.5 - 11.0 K/mm3) 16.7 H RBC (4.40 - 5.90 M/mm3) 4.32 L Hgb (13.0 - 17.0 gm/dL) 13.7 Hct (36.0 - 48.0 %) 39.6 MCV (80.0 - 94.0 UM3) 91.7 MCH (25.5 - 32.5 UUG) 31.7 MCHC (29.0 - 35.5 gm/dL) 34.6 RDW (11.5 - 15.0 %) 13.4 Plt Count (150 - 400 K/mm3) 340 MPV (7.4 - 10.4 fl) 9.2 Neut % (Auto) (49.0 - 76.0 %) 78.4 H Lymph % (Auto) (23.0 - 38.0 %) 9.[address] [place] % (Auto) (1.0 - 10.0 %) 9.3 Eos % (Auto) (1.0 - 5.0 %) 1.3 Baso % (Auto) (0.0 - 1.0 %) 0.4 Neut # (Auto) (2.4 - 6.3 K/mm3) 13.1 H Lymph # (Auto) (1.2 - 4.0 K/mm3) 1.6 [place] # (Auto) (0.0 - 0.6 K/mm3) 1.6 H Eos # (Auto) (0.0 - 0.7 K/MM3) 0.2 Baso # (Auto) (0.0 - 0.2 K/mm3) 0.1 Immature Gran % (0.0 - 0.4 %) 0.8 H Immature Gran # (0.00 - 0.07 x10 3/uL) 0.13 H ESR (0 - 15 mm/hr) 84 H Microbiology: Date/Time Procedure - Status Source Growth 06/01 1442 Blood Culture - RECD BLOOD 06/01 1405 Blood Culture - COLB BLOOD Recent Impressions:RADIOLOGY - XR ANKLE 3 + V LT 06/01 1420 Report Impression - Status: SIGNED Entered: 06/02/20196 IMPRESSION:1. No acute interval change.Impression By: HimanshuCB5 - Christian Meza M.D. Informant/historian: patient, prior records HistoryPast medical history:Reports: Seizure disorder. Additional medical history:Ashwin. Ankle fx 2018.Additional surgical history:ORIF 2018Repeat surgery with bone graft 03/31 non-unios 2019Additional family history:HTNAlcohol use: Denies EtOH useDrug use: Denies recreational drugsSmoking status for patients 13 years old or older: Current every day smokerOther social history: Local resident Medication/Allergy-Vaccine HxHome Medications:clonazePAM (KlonoPIN) 2 MG PO DAILYlevETIRAcetam (KEPPRA) 500 MG PO BID Discontinued MedicationsHYDROcodone/APAP (NORCO 7.5/325) 1 TAB PO Q4H PRN PRN pain Discontinued reason: DC prior to admitPROMETHAZINE (PHENERGAN) 25 MG PO Q6H PRN PRN nausea Discontinued reason: Therapy completed Allergies:Coded Allergies:No Known Allergies (06/02/19) 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 Skin:Reports: swelling. Denies: abrasion, bruising, contusion, diaphoresis, ecchymosis, itching, rash. Allergy/Immun:Denies: allergic reaction, anaphylaxis, hives, rhinorrhea, sneezing. Eyes:Denies: redness, discharge, visual loss/blurred, diplopia. ENT:Denies: ear drainage, earache, mouth pain, sinus problem, sore throat. Respiratory:Denies: NORTON (dyspnea on exertion), hemoptysis, parox nocturnal dyspnea, pleurisy. Cardiovascular:Denies: chest pain, NORTON (dyspnea on exertion), edema, palpitations, parox nocturnal dyspnea. GI:Denies: abdominal pain, constipation, diarrhea, dysphagia. :Denies: dysuria, frequency, hematuria, nocturia. Musculoskeletal:Reports: extremity pain, extremity swelling, joint pain, joint swelling. Denies: arthritis. Heme:Denies: adenopathy, bleeding, bruising, petechiae. Endocrine:Denies: cold intolerance, heat intolerance, polyphagia. Neuro:Denies: bowel dysfunction, focal weakness, lightheaded, numbness, seizure. Psych:Denies: agitation, anxiety, change in mental status, delusional. All systems rev neg: except as marked Objective GeneralVS/I O:Vital Signs: Date Time Temp Pulse Resp B/P B/P Pulse O2 O2 Flow FiO2 Mean Ox Delivery Rate 06/02 1117 97.9 101 15 106/66 79.1 95 Room air 06/02 0705 98.8 107 16 135/89 104.2 95 Room air 06/02 0325 97.5 101 17 105/60 75.1 97 Room air 06/01 1930 90 18 125/84 97 99 06/01 1751 99 16 121/83 95 99 Room air 06/01 1524 98.4 101 19 118/84 95 9 Room air 24 hour I O ending at 0700: 06/02 0700 06/01 1900 Intake Total Output Total Balance Patient 69 kg Weight Weight Stated/Reported Measurement Method Patient Weight Weight (lb): Weight (oz): Weight (kg): 69.000 Physical ExamGeneral appearance: alert, awake, orientedHead/Eyes: atraumatic, clear cornea, normocephalicENT: moist mucosal membranes, normal nose, normal sinusNeck: non-tender, no masses or swellingCardiovascular: tachycardia, normal heart soundsRespiratory: aerating well, clear to auscultation, symmetric expansionAbdomen: non-tender, soft, no distentionRectal: deferredExtremities: moves all, no calf tenderness, swelling to LLEMusculoskeletal: no CVA tenderness, no muscle spasm, no paraspinal tendernessNeuro/TITLE I DIRECTOR: alert, oriented X 3, CNII-XII intactSkin: LLE with warmth and erythema. Lateral aspect just proximal to the malleolus has an opening that is draining blood and possibly exudate.Psychiatry: normal affect ResultsFindings/Data:Laboratory Tests 06/02 06/01 06/01 06/01 1113 1441 1441 1441 Chemistry Sodium (134.0 - 147.0 mmol/l) 135 135 Potassium (3.6 - 5.2 mmol/L) 4.1 3.9 Chloride (98.0 - 107.0 mmol/l) 100 96 L Carbon Dioxide (21.0 - 33.0 mmol/l) 29.4 29.0 Anion Gap (0 - 20) 9.7 13.9 BUN (7.0 - 18.0 mg/dl) 13 16 Creatinine (0.60 - 1.30 mg/dL) 1.27 1.30 Est GFR ( Amer) (115 - 127 mL/min) 80 L 78 L Est GFR (Non-Af Amer) (95 - 105 mL/min) 66 L 64 L Glucose (70.0 - 110.0 mg/dl) 97 97 Lactic Acid (0.4 - 2.0 MMOL/L) 0.7 Calcium (8.0 - 10.5 mg/dl) 8.9 9.3 Magnesium (1.8 - 2.4 mg/dl) 2.1 Total Bilirubin (0.0 - 1.0 mg/dl) 0.7 0.8 Direct Bilirubin (0.0 - 0.3 mg/dl) 0.2 AST (15.0 - 37.0 Units/L) 13 L 16 ALT (12.0 - 78.0 Units/L) 19 18 Total Alk Phosphatase (50.0 - 136.0 Units/L) 79 88 C-Reactive Protein (0.0 - 0.9 mg/dL) 30.0 H Total Protein (6.4 - 8.2 gm/dL) 7.1 7.9 Albumin (3.2 - 4.7 gm/dl) 2.9 L 3.3 Vitamin B12 (193 - 986 pg/mL) 306 Laboratory Tests 06/01 1441 Coagulation INR (0.89 - 1.14) 1.2 H PTT (Bartholomew) (25.86 - 36.07 SECONDS) 37.20 H PT Patient/Control Mix (9.9 - 12.8 SECONDS) 13.7 H Laboratory Tests 06/02 06/01 06/01 1113 1441 1441 Hematology WBC (4.5 - 11.0 K/mm3) 13.6 H 16.7 H RBC (4.40 - 5.90 M/mm3) 3.85 L 4.32 L Hgb (13.0 - 17.0 gm/dL) 12.0 L 13.7 Hct (36.0 - 48.0 %) 35.1 L 39.6 MCV (80.0 - 94.0 UM3) 91.2 91.7 MCH (25.5 - 32.5 UUG) 31.2 31.7 MCHC (29.0 - 35.5 gm/dL) 34.2 34.6 RDW (11.5 - 15.0 %) 13.6 13.4 Plt Count (150 - 400 K/mm3) 341 340 MPV (7.4 - 10.4 fl) 9.1 9.2 Neut % (Auto) (49.0 - 76.0 %) 73.6 78.4 H Lymph % (Auto) (23.0 - 38.0 %) 11.[address] [place] % (Auto) (1.0 - 10.0 %) 9.8 9.3 Eos % (Auto) (1.0 - 5.0 %) 4.3 1.3 Baso % (Auto) (0.0 - 1.0 %) 0.4 0.4 Neut # (Auto) (2.4 - 6.3 K/mm3) 10.0 H 13.1 H Lymph # (Auto) (1.2 - 4.0 K/mm3) 1.[address] [place] # (Auto) (0.0 - 0.6 K/mm3) 1.3 H 1.6 H Eos # (Auto) (0.0 - 0.7 K/MM3) 0.6 0.2 Baso # (Auto) (0.0 - 0.2 K/mm3) 0.1 0.1 Immature Gran % (0.0 - 0.4 %) 0.6 H 0.8 H Immature Gran # (0.00 - 0.07 x10 3/uL) 0.08 H 0.13 H ESR (0 - 15 mm/hr) 84 H Radiology data:Recent Impressions:RADIOLOGY - XR ANKLE 3 + V LT 06/01 1420 Report Impression - Status: SIGNED Entered: 06/02/2019 1446 IMPRESSION:1. No acute interval change.Impression By: HimanshuCB5 - Christian Meza M.D. Diagnosis, Assessment PlanPlan discussed with: patient, nurse Free Text DxA P NotesFree text DxA P notes:1. LLE Cellulitis- Probable infected Hardware. Hx ORIF x 2, last one 06/2018 with bone graft. Drainage to lateral LE. Started on Vanc and Zosy, consulted Dr Osuna for Eval. Previous Surgeries done at by other surgeons. WOuld benefit from MRI, but unable to do so given metal hardware. CT w IV contrast? Defer to Ortho. Also to consider ID. Cx wound. 2. Sepsis- POA and 2/2 #1. Vanc and Zoayn. Blood cx - at 24 hrs. 3. KRYSTAL- Monitor closely while on vanc, IVF at 1400 RPT #:[id number] OF REPORTHPHistory and physical gxbgxscrton1777-07-81C71:48:00E.QULM44438547-2081 AVAvailable for patient jomkXZLOHSWGXORJGO2615-79-76E38:00:51 [facility] 2019-06-02 14:06:00 HIzkhcfhfty47368317K 3opo+xby9CubYmycgKmbXdOujUEws SAEd7c5BBSUUiwYsSdCcP/8P0Vt+e72NID7992-86-62F48:0 6:00 [facility] ([facility] PROVIDER REPORTREPORT#:[id number] REPORT STATUS: SignedDATE:06/02/19 TIME: 1406 PATIENT: ABDIEL RAMOS UNIT #: [id number]#: [id number] ROOM[facility]BED[facility]AGE: 43 SEX: M PCP PHYS: No Primary or Family PhysicianSERVICE AUTHOR: Veronica Harrison MD * ALL edits or amendments must be made on the electronic/computer document * HPI-Ankle Prob/Inj GeneralConfirmed Patient YesInitial Greet Date/Time 06/02/19 1349 PresentationChief Complaint Pain L, Swelling L Free Text HPI NotesFree Text HPI Fqfej32-ddbe-ucw male with history of ORIF of the left ankle, presents for redness tothe and pain and swelling to the left ankle since . Area of redness hasbeen progressive. Code sepsis called. Denies fever, nausea, vomiting Review of Systems Free Text ROS NotesFree Text ROS NotesReview of systems:-Constitutional: No fever, chills, fatigue-EENT: No runny nose, sore throat-Cardiovascular: No chest pain, palpitations, syncope-Respiratory: No shortness of breath, cough, wheezing-GI: No abdominal pain, nausea, vomiting, diarrhea-: No pain or burning with urination, no blood in the urine-Musculoskeletal: Left ankle pain, swelling, erythema-Skin: No rash, abrasion-Neurologic: No change in LOC, confusion, numbness or tingling-Psychiatric: No suicidal or homicidal ideations Past Medical History - AdultStated Complaint INFECTION IN LLEAllergiesCoded Allergies:No Known Allergies (06/02/19) Home MedicationsReported MedicationsHYDROcodone/APAP (NORCO 7.5/325) 1 TAB PO Q4H PRN PRN pain HYDROcodone/APAP (NORCO 7.5/325) 1 TAB PO Q4H PRN PRN pain #40 PROMETHAZINE (PHENERGAN) 25 MG PO Q6H PRN PRN nausea PROMETHAZINE (PHENERGAN) 25 MG PO Q6H PRN PRN nausea #20 Ref 1clonazePAM (KlonoPIN) 2 MG PO DAILY levETIRAcetam (KEPPRA) 500 MG PO BID Past Medical History:Reports: Seizure disorder. 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 Physical Exam Vital SignsVital SignsFirst Documented: Result Date Time Pulse Ox 99 04/05 1335 B/P 125/84 04/05 1335 B/P Mean 97 04/05 1335 O2 Delivery Room air 04/05 1335 Temp 36.9 04/05 1335 Pulse 118 04/05 1335 Resp 20 04/05 1335 Last Documented: Result Date Time Pulse Ox 99 04/05 1335 B/P 125/84 04/05 1335 B/P Mean 97 04/05 1335 O2 Delivery Room air 04/05 1335 Temp 36.9 04/05 1335 Pulse 118 04/05 1335 Resp 20 04/05 1335 Review of Vital Signs Reviewed Free Text PE NotesFree Text PE NotesPhysical exam-General: Awake, alert, uncomfortable appearing but no acute distress-Head: Atraumatic, normocephalic-EENT: PERRLA, EOMI-Neck: Supple, full range of motion, no meningismus-Respiratory: No respiratory distress, clear to auscultation bilaterally, no wheezing or rhonchi-Cardiovascular: Tachycardic, regular rhythm, normal heart sounds-Abdomen: Soft, nontender, nondistended, no rebound or guarding-Skin: Erythema to the left ankle- Neurologic: Oriented x3, normal speech-Psychiatric: Normal mood, normal Affect-Extremities: Left ankle pain, swelling, erythema, normal range of motion, 2+ DPand PT pulses, sensation intact distally. Interpretation Diagnostics Lab Results InterpretationResultsLaboratory Tests 06/02/19 1441:[Embedded Image Not Available]Laboratory Tests: 06/01 06/01 06/01 1441 1441 1441 Chemistry Sodium (134.0 - 147.0 mmol/l) 135 Potassium (3.6 - 5.2 mmol/L) 3.9 Chloride (98.0 - 107.0 mmol/l) 96 L Carbon Dioxide (21.0 - 33.0 mmol/l) 29.0 Anion Gap (0 - 20) 13.9 BUN (7.0 - 18.0 mg/dl) 16 Creatinine (0.60 - 1.30 mg/dL) 1.30 Est GFR ( Amer) (115 - 127 mL/min) 78 L Est GFR (Non-Af Amer) (95 - 105 mL/min) 64 L Glucose (70.0 - 110.0 mg/dl) 97 Lactic Acid (0.4 - 2.0 MMOL/L) 0.7 Calcium (8.0 - 10.5 mg/dl) 9.3 Total Bilirubin (0.0 - 1.0 mg/dl) 0.8 Direct Bilirubin (0.0 - 0.3 mg/dl) 0.2 AST (15.0 - 37.0 Units/L) 16 ALT (12.0 - 78.0 Units/L) 18 Total Alk Phosphatase (50.0 - 136.0 Units/L) 88 C-Reactive Protein (0.0 - 0.9 mg/dL) 30.0 H Total Protein (6.0 - 8.1 GM/DL) 7.9 Albumin (3.2 - 4.7 gm/dL) 3.3 Coagulation INR (0.89 - 1.14) 1.2 H PTT (Bartholomew) (25.86 - 36.07 SECONDS) 37.20 H PT Patient/Control Mix (9.9 - 12.8 SECONDS) 13.7 H Hematology WBC (4.5 - 11.0 K/mm3) 16.7 H RBC (4.40 - 5.90 M/mm3) 4.32 L Hgb (13.0 - 17.0 gm/dL) 13.7 Hct (36.0 - 48.0 %) 39.6 MCV (80.0 - 94.0 UM3) 91.7 MCH (25.5 - 32.5 UUG) 31.7 MCHC (29.0 - 35.5 gm/dL) 34.6 RDW (11.5 - 15.0 %) 13.4 Plt Count (150 - 400 K/mm3) 340 MPV (7.4 - 10.4 fl) 9.2 Neut % (Auto) (49.0 - 76.0 %) 78.4 H Lymph % (Auto) (23.0 - 38.0 %) 9.[address] [place] % (Auto) (1.0 - 10.0 %) 9.3 Eos % (Auto) (1.0 - 5.0 %) 1.3 Baso % (Auto) (0.0 - 1.0 %) 0.4 Neut # (Auto) (2.4 - 6.3 K/mm3) 13.1 H Lymph # (Auto) (1.2 - 4.0 K/mm3) 1.6 [place] # (Auto) (0.0 - 0.6 K/mm3) 1.6 H Eos # (Auto) (0.0 - 0.7 K/MM3) 0.2 Baso # (Auto) (0.0 - 0.2 K/mm3) 0.1 Immature Gran % (0.0 - 0.4 %) 0.8 H Immature Gran # (0.00 - 0.07 x10 3/uL) 0.13 H ESR (0 - 15 mm/hr) 84 H Microbiology: Date/Time Procedure - Status Source Growth 06/01 1442 Blood Culture - RECD BLOOD 06/01 1405 Blood Culture - COLB BLOOD Recent Impressions:RADIOLOGY - XR ANKLE 3 + V LT 06/01 1420 Report Impression - Status: SIGNED Entered: 06/02/2019 1446 IMPRESSION:1. No acute interval change.Impression By: HimanshuCB5 - Christian Meza M.D. Lab Imaging StatementLaboratory radiographic studies reviewed and considered in the medical decision-making. Point of Care TestingPulse Oximetry Pulse Ox % 99 On: Room air Interpretation Interpreted by tn, Pulse oximetry normal Time 1355 Re-Evaluation MDM Free Text MDM NotesFree Text MDM Ocdkv22-heag-qtw male with previous ORIF to the left ankle, has erythema, swelling, drainage from the left ankle. He does still have normal range of motion. Will obtain lab work, x-ray, ESR and CRP. SIRS criteria met, will initiate sepsis bundle. Re-Evaluation/ProgressRe-Evaluation/Progress Text/Dict NoteWhite count, ESR, CRP are elevated. Patient will be admitted for further evaluation. Compartment SyndromeThere are no signs or symptoms of compartment syndrome in the injured extremity at the time of this examination. Any pain the patient has is in proportion to the injury, the peripheral circulation is intact, capillary refill is not delayed, and there is no numbness, tingling or paresthesia. ED CourseMedication(s) OrderedMedication(s) Ordered:Anti-Infective Agents Sig/Yen Start time Last Medication Dose Route Stop Time Status Admin Vancomycin HCl 1,000 MG X1ED STA 06/01 1405 DC 04/ Sodium Chloride 250 ML IV 06/01 1534 1447 Central Nervous System Agents Sig/Yen Start time Last Medication Dose Route Stop Time Status Admin Acetaminophen 650 MG Q4H PRN PRN 04 1530 AC PO 06/02 1424 Hydrocodone Bitart/ 1 TAB Q4H PRN PRN / 1530 AC Acetaminophen PO / 1424 Morphine Sulfate 4 MG X1ED STA 04/ 1404 DC 04/05 IV 04/05 1405 1446 Electrolytic, Caloric, And Abdon Sig/Yen Start time Last Medication Dose Route Stop Time Status Admin Sodium Chloride 2,070 ML X1ED STA /05 1404 DC 04/05 IV 04/05 1405 1447 Gastrointestinal Drugs Sig/Yen Start time Last Medication Dose Route Stop Time Status Admin Ondansetron HCl 4 MG Q6H PRN PRN /05 1530 AC IV 04 1424 Patient Discharge Departure Vital Signs/ConditionVital SignsFirst Documented: Result Date Time Pulse Ox 99 / 1335 B/P 125/84 04/ 1335 B/P Mean 97 04/05 1335 O2 Delivery Room air 04/ 1335 Temp 36.9 04/ 1335 Pulse 118 04/05 1335 Resp 20 / 1335 Last Documented: Result Date Time Pulse Ox 99 / 1335 B/P 125/84 04/ 1335 B/P Mean 97 04/05 1335 O2 Delivery Room air 04/ 1335 Temp 36.9 04/ 1335 Pulse 118 04/05 1335 Resp 20 /05 1335 All vital signs available at the time of this entry have been reviewed. Clinical ImpressionClinical ImpressionPrimary Impression: CellulitisSecondary Impressions: Sepsis Disposition DecisionAdmit Admit Physician Name Beatris Bauer MD Admit Physician Hospitalist Request Time 1525 )( Admission Accepts Yes )( Accepted Time 1525 )( Accepted Date 06/02/19 Discharge/Care PlanCounseled Regarding Diagnosis, Lab results, Need for follow-up, When to return to EDReferralsNo Primary or Family Physician (PCP/Family) Admit NoteI have spoken with the patient and/or caregivers. I have explained the patient'scondition, diagnoses and treatment plan based on the information available to meat this time. I have answered the patient's and/or caregiver's questions and addressed any concerns. The patient and/or caregivers have as good an understanding of the patient's diagnosis, condition and treatment plan as can beexpected at this point. The patient has been stabilized within the capability ofthe emergency department. The patient will be transported for further care and management or will be moved to an observation or inpatient service. I have communicated with the staff or medical practitioner taking over this patient's care. at 1604RPT #:[id number] OF REPORTEDEmercornerstone specialty hospital department latmdz8704-65-87E54:06:00E.NPAF67271297-8286KTRiw ilable for patient yqxgLJWFJEJTVYRCYB4416-22-39J87:05:18 [facility] 2018-07-10 07:18:00 [id number] Ro97cHfqeUvnBeapavRPEuQTANaGz 4G0iHQX08nnEwcprNFYT9rSqyGqGT8JYvw3592-78-87D08:1 8:00 [facility] ([facility])Pain Management Progress NoteREPORT#:[id number] REPORT STATUS: SignedDATE:07/10/18 TIME: 717 PATIENT: ABDIEL RAMOS UNIT #: [id number]#: [id number] ROOM[address]BED: [address]: [address] AGE: 42 SEX: M ATTEND: Sd Horton [facility] AUTHOR: Gisell Ingram NP * ALL edits or amendments must be made on the electronic/computer document * SubjectiveChief Complaint:L ANKLE PAIN S/P ORIF BIMALLEOLAR FXComments:Last Documented: Result Date Time Pulse Ox 99 07/10 700 B/P 120/71 07/10 700 B/P Mean 87.3 07/10 700 O2 Delivery Nasal cannula 07/10 700 Temp 36.8 07/10 700 Pulse 68 07/10 700 Resp 18 07/10 700 FiO2 32 07/11 39 O2 Flow Rate 3.548870 07/11 39 History: PMH: SZ D/O POD: 1 APMS RN: Elle WOODS RN Medication: DILAUDID Pump settings: BASAL RATE: O DOSE: 0.2MG 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 EASILY AROUSABLE FOR INTERVIEW. PT'S MOTHER AT BEDSIDE. Pain: STATES HAS VERY LITTLE PAIN Physical Exam: VAS: 3 LOS: 1 Resp Quality: 1 Side Effects: NONE PT APPEARS COMFORTABLE AT THIS TIME. 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 at 0719 RPT #:[id number] OF REPORT PRProgress Oezp6920-21-35I80:18:00Y.SPTK48509302-3712RFMurrp able for patient zdypMNLJAVZMTXQPBB5665-04-06G90:20:13 [facility] 2018-07-10 07:18:00 [id number] eA38NvMqwSlSrUuGxTfPf+AXzsE2k vKVKdARJKjCyqPApjDOem2tmOHvAroqIur3002-51-23J58:1 8:00 [facility] ([facility])Pain Management Progress NoteREPORT#:[id number] REPORT STATUS: SignedDATE:07/10/18 TIME: 0718 PATIENT: ABDIEL RAMOS UNIT #: [id number]#: [id number] [facility] AGE: 42 SEX: M ATTEND: Sd Horton [facility] AUTHOR: Gisell Ingram NET LEAD ARCHITECT * ALL edits or amendments must be made on the electronic/computer document * SubjectiveChief Complaint:L ANKLE PAIN S/P ORIF BIMALLEOLAR FXComments:Last Documented: Result Date Time Pulse Ox 99 07/10 700 B/P 120/71 07/10 700 B/P Mean 87.3 07/10 700 O2 Delivery Nasal cannula 07/10 700 Temp 36.8 07/10 700 Pulse 68 07/10 700 Resp 18 07/10 700 FiO2 32 07/10 004 O2 Flow Rate 3.275465 07/10 004 History: PMH: SZ D/O POD: 1 APMS RN: Elle WOODS RN Medication: DILAUDID Pump settings: BASAL RATE: O DOSE: 0.2MG 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 EASILY AROUSABLE FOR INTERVIEW. PT'S MOTHER AT BEDSIDE. Pain: STATES HAS VERY LITTLE PAIN Physical Exam: VAS: 3 LOS: 1 Resp Quality: 1 Side Effects: NONE PT APPEARS COMFORTABLE AT THIS TIME. 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 at 0719 at 0816 RPT #:[id number] OF REPORT PRProgress Heje3226-25-16L37:18:00Y.[id number] able for patient lqicTGKXQMRQJUYAVN2619-40-28Y09:16:37 [facility] 2018-07-10 06:47:00 [id number] R7++fPSt1Ao3RhoamrpNYUvZbVz7X JUgamOgzZj07PVX6RiaxWF3OEgPX8rK+Yt6589-87-90C26:4 7:00 [facility] ([facility])Clinical NoteREPORT#:[id number] REPORT STATUS: SignedDATE:07/10/18 TIME: 06 PATIENT: ABDIEL RAMOS UNIT #: [id number]#: [id number] ROOM/BED: O37-BLQZ: 77 AGE: 42 SEX: M [facility]: Sd [facility] MD * ALL edits or amendments must be made on the electronic/computer document * Clinical NoteNote:minimal painafebrile VSSLLE--splint intact, +DF/PF toes, LT intact, good cap refill in toesplan--d/c home at 0647 RPT #:[id number] OF REPORT CLClinical rjuy4496-85-37E51:47:00Y.IUCY86862021-8854ZKUsmpc able for patient giufHUEBZKLOIGBLVD1351-80-36Z56:48:03 [facility] 2018-07-09 12:36:00 [id number] Gt1HpYiJAxPdZw2u/prUcuwBWPSUY IiJgTnvdwI+owzAXfyfdvMBry0tEqer4m04332-48-98K20:3 6:[id number] [facility] [place] [id number] PATIENT NAME: ABDIEL RAMOS ADMIT DATE: 07/09/18ACCOUNT NO: [id number] ROOM NO: O21 AGE: 42 REPORT TYPE: OPERATIVE REPORT SEX: M ADMITTING PHYSICIAN: ATTENDING PHYSICIAN:Sd Horton MD OPERATION DATE: 07/09/2018 PREOPERATIVE DIAGNOSIS: 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 PROCEDURE PERFORMED: Revision open reduction and internal fixation, leftbimalleolar ankle fracture with iliac crest bone graft. SURGEON: Sd Horton MD [employer] [facility] MANAGER: Dr. Laz White. ANESTHESIA: General plus local. ESTIMATED BLOOD LOSS: Minimal. SPECIMENS: None. COMPLICATIONS: None. DISPOSITION: The patient was taken to the recovery room in stable condition andthen admitted to the hospital for continued care. INDICATIONS FOR THE OPERATION: The patient is a 42-year-old gentleman, whoinjured his left ankle on the job. He underwent a bimalleolar ankle fractureORIF, which has gone on to a symptomatic delayed union. He presents today forthe aforementioned procedure. PROCEDURE IN DETAIL: After obtaining the proper informed consent, discussingrisks and benefits of surgery, the patient was given preoperative antibiotics inthe holding area. The correct leg was identified and signed. He was taken tothe operating room and was placed on the operating table in supine position. Hewas placed under general anesthesia by the anesthesiologist without anycomplications. A tourniquet was placed on his left thigh. His left lowerextremity and his left iliac crest region were then prepped and draped in asterile fashion. We first made a 3-cm incision over the left iliac crest beingcareful to protect any neurovascular structures. We utilized a 10-mm bone graftreamer to obtain cancellous bone from the iliac crest. This wound was thenirrigated and closed in the usual fashion in layers and then sterilely dressed. The left lower extremity was then elevated, exsanguinated with an Esmarch, andthe tourniquet was inflated to 300 mmHg. We utilized his previous lateral PATIENT NAME: ABDIEL RAMOS incision to gain access to his distal fibula. His plate and screws were removedin their entirety. There were no signs of infection. There was clear motion atthe comminuted fracture site, which was debrided of all fibrous tissue andpacked with the iliac crest bone graft. This was then rigidly fixated with 2Paragon plates using locking and nonlocking screws. The alignment appearedexcellent both clinically and radiographically. The implants appeared to be ingood position. The wound was irrigated and closed in the usual fashion inlayers. We then utilized a portion of his previous medial ankle incision togain access to his medial malleolus fracture, which had 2 screws across thefracture site, which were removed. There was clear motion at the fracture. There were no signs of infection. The fracture site was debrided of all fibroustissue and packed with the iliac crest bone graft after drilling across thefracture site. The fracture was then stabilized with 2 Sanibel 4.0 partiallythreaded cannulated screws under radiographic guidance with good fixation. Thefracture appeared to be acceptably reduced. This wound was irrigated and closedin the usual fashion in layers. The wounds were infiltrated with 30 mL of 0.5%Marcaine plain and then sterilely dressed. He was placed into a well-paddedposterior splint. The tourniquet was let down and the toes were well perfusedat that time. The patient tolerated the procedure well. He awoke from generalanesthesia without any complications. He was placed on his hospital bed andtaken to the recovery room in stable condition where he will be admitted to thespital for continued care. Dictated By: Sd Horton MD WT: OP:Y.SONI/MARLON/NTSDD: 07/09/2018 12:36:39DT: 07/09/2018 15:37:09Conf#: [id number]/DID#: [id number] Authenticated by Sd Horton MD On 07/10/2018 06:53:37 AM at 0653 PATIENT NAME: ABDIEL RAMOS jmeyiu4758-08-87A68:37:00Y.[id number] lable for patient szbiHOGTKSUXTCPOBA5731-66-41M03:54:03 [facility] 2018-07-09 12:13:00 MJidtfxexjj14191807n 7nfZc9RncH8bmsPjWOXck1NQ+mXYE PwxgNo/HGFwhnylSJXyNBkGtbUtYvrCdsr7459-21-28L15:1 3:00 [facility] ([facility])Brief Op NoteREPORT#:[id number] REPORT STATUS: SignedDATE:07/09/18 TIME: 1213 PATIENT: ABDIEL RAMOS UNIT #: [id number]#: [id number] ROOM/BED:: 76 AGE: 42 SEX: M ATTEND: Sd Horton MDADM AUTHOR: Sd Horton MD * ALL edits or amendments must be made on the electronic/computer document * Op/Inv Proc Note - BriefPre-procedure diagnosis:left bimalleolar fracture nonunionPost-procedure diagnosis: same as pre procedure dxProcedures performed:revision ORIF left ankle with ICBGPrimary Surgeon:LisaeAssistant(s): ChristopherFindings:see dictationComplications: noneEstimated blood loss in ml's: 25Specimens removed/altered: none at 1214 RPT #:[id number] OF REPORT OPOperative tewztt7811-46-12F20:13:00Y.AHGP49835939-8572EAVqf ilable for patient jmbfRWOVQQLZVYJLZR2387-90-15N32:14:51 [facility] 2018-05-02 12:48:00 HJauewurozp5320961vP CxE4mz1yA+sEviPIe1wD2SIEDNK7c YEyJl1rv1146lAO5eGFdE6/Wd5cqjzSJ99454-38-47C65:48 :00 [facility]EM[facility] PROVIDER REPORTREPORT#:[id number] REPORT STATUS: SignedDATE:05/02/18 TIME: 1248 PATIENT: ABDIEL RAMOS UNIT #: [id number]#: [id number] ROOM/BED:AGE: 42 SEX: M PCP PHYS: No Primary or Family PhysicianSERVICE AUTHOR: Melo Bhatt MD * ALL edits or amendments must be made on the electronic/computer document * HPI-Seizure GeneralConfirmed Patient YesInitial Greet Date/Time 05/02/18 1238 PresentationChief Complaint Seizure, generalizedSeizure Anatomic Location GeneralizedHx Obtained From Patient, ParamedicOnset Occurred TodaySymptom Duration Lasting minutesProgression since Onset ResolvedQuality UncomfortableSeverity: Current No pain currentlyAssociated withDenies: Bladder incontinence, Bowel incontinence, Fever, Headache, Nausea, Vomiting. Associated Other Pt denies other symptomsExacerbated by NothingRelieved by Nothing Free Text HPI NotesFree Text HPI Notes42 y/o M with PMHx of sz disorder (on Depakote) presents to the ED via EMS c/o brief episode lasting less than 5 minutes of generalized sz onset today while atwork. EMS reports BGL was 115. He describes Sx's as uncomfortable in quality andnotes no pain currently. Denies slurred speech, weakness, head injury, fever, N/V, or bowel/bladder incontinence. Pt reports being compliant with taking 100mg Depakote daily and his last sz was "a long time ago." Portions of this section were scribed by Dejuan Lucas on 05/02/18 at 1431 Review of Systems ROS StatementsAll systems rev neg except as marked. Focused Review of SystemsConstitutionalDenies: Chills, Fever. EyesDenies: Discharge bilat, Redness bilat. Ears/Nose/ThroatDenies: Mouth pain, Sore throat. RespiratoryDenies: Cough, non-productive, Shortness of breath. CardiovascularDenies: Chest pain, Palpitations. MusculoskeletalDenies: Back pain, Extremity pain, Neck pain. SkinDenies: Contusion, Rash. NeurologicReports: Seizure. Denies: Bladder dysfunction, Bowel dysfunction, Generalized weakness, Headache, Slurred speech. Additional Review of SystemsGIDenies: Abdominal pain, Diarrhea, Nausea, Vomiting. MaleDenies: Dysuria, Flank pain, Hematuria. Allergy/ImmunDenies: Rhinorrhea, Sneezing. Portions of this section were scribed by Dejuan Lucas on 05/02/18 at 1254 Past Medical History - AdultStated Complaint SEIZUREAllergiesCoded Allergies:No Known Allergies (05/02/18) Home MedicationsReported MedicationsclonazePAM (KlonoPIN) 1 MG PO BID Review of Nursing Notes Rev avail, and agreePt reports no significant: Past surgical historyPast Medical History:Reports: Seizure disorder. Alcohol Use Denies EtOH useDrug Use Denies recreational drugsSmoking status for patients 13 years old or older: Current every day smoker Portions of this section were scribed by Dejuan Lucas on 05/02/18 at 1425 Physical Exam Vital SignsVital SignsFirst Documented: Result Date Time Pulse Ox 100 05/02 1237 B/P 120/69 05/02 1237 B/P Mean 86 05/02 1237 O2 Delivery Room air 05/02 1237 Temp 36.8 05/02 1237 Pulse 120 05/02 1237 Resp 18 05/02 1237 Last Documented: Result Date Time Pulse Ox 98 05/02 1433 B/P 113/56 05/02 1433 B/P Mean 75 05/02 1433 O2 Delivery Room air 05/02 1433 Temp 36.8 05/02 1433 Pulse 85 05/02 1433 Resp 16 05/02 1433 Review of Vital Signs Reviewed, Vital signs abnormal (tachycardic) Focused PEGeneral/Const General/Const Awake, Alert, Well developed, Well nourished, CooperativeMS Head Head Atraumatic, NormocephalicEyes Eyes PERRL, EOMI, Conjunctiva NLEars/Nose/Throat Ears/Nose/Throat Airway patent, Mucous membranes moist, Pharynx NLMS Neck Neck Atraumatic, Supple, No meningismus, Full range of motion, No swelling, Non-tenderResp/Chest Respiratory/Chest Breath sounds NL, Breath sounds = bilat, No respiratory distress, No rales, No rhonchi, No wheezingCardiovascular Cardiovascular Heart rate NL, Regular rhythm, Heart sounds NLAbdomen/GI Abdomen/GI Atraumatic, Soft, Non-tenderMS Upper Extrem Upper Extremity/MS Atraumatic, Inspection NL, Full range of motionMS Lower Extrem Lower Ext/Pelvis/MS Atraumatic, Inspection NL, Full range of motionSkin Skin Color NL, No rash, Warm, Dry, IntactNeurologic Neurologic Oriented X3, Speech NL, No motor deficits, No sensory deficits, CNII - XII intact, Reflexes equal bilat, Cerebellar NL, Memory NL, Gait NLPsychiatric Psychiatric Affect NL, Mood NL, Not suicidal, Not homicidal Portions of this section were scribed by Dejuan Lucas on 05/02/18 at 1344 Interpretation Diagnostics Lab Results InterpretationConsiderations Independ review imaging, Reviewed prior recordsResultsLaboratory Tests 05/02/18 1334:[Embedded Image Not Available]Laboratory Tests: 05/02 05/02 1346 1334 Chemistry Sodium (134.0 - 147.0 mmol/l) 135 Potassium (3.6 - 5.2 mmol/L) 3.8 Chloride (98.0 - 107.0 mmol/l) 100 Carbon Dioxide (21.0 - 33.0 mmol/l) 26.0 Anion Gap (0 - 20) 12.8 BUN (7.0 - 18.0 mg/dl) 12 Creatinine (0.60 - 1.30 mg/dL) 1.12 Est GFR ( Amer) (115 - 127 mL/min) 93 L Est GFR (Non-Af Amer) (95 - 105 mL/min) 77 L Glucose (70.0 - 110.0 mg/dl) 95 Calcium (8.0 - 10.5 mg/dl) 9.5 Total Bilirubin (0.0 - 1.0 mg/dl) 0.2 Direct Bilirubin (0.0 - 0.3 mg/dl) 0.1 AST (15.0 - 37.0 Units/L) 16 ALT (12.0 - 78.0 Units/L) 13 Total Alk Phosphatase (50.0 - 136.0 Units/L) 74 Total Creatine Kinase (39 - 308 Units/L) 226 Troponin I (0.00 - 0.06 NG/ML) <0.02 Total Protein (6.0 - 8.1 GM/DL) 7.2 Albumin (3.2 - 4.7 gm/dL) 3.8 Lipase (65.0 - 230.0 Units/L) 210 Coagulation INR (0.89 - 1.14) 0.9 PTT (Bartholomew) (25.86 - 36.07 SECONDS) 32.50 PT Patient/Control Mix (9.9 - 12.8 SECONDS) 10.8 Hematology WBC (4.5 - 11.0 K/mm3) 16.4 H RBC (4.40 - 5.90 M/mm3) 4.09 L Hgb (13.0 - 17.0 gm/dL) 13.0 Hct (36.0 - 48.0 %) 38.1 MCV (80.0 - 94.0 UM3) 93.2 MCH (25.5 - 32.5 UUG) 31.8 MCHC (29.0 - 35.5 gm/dL) 34.1 RDW (11.5 - 15.0 %) 13.4 Plt Count (150 - 400 K/mm3) 301 MPV (7.4 - 10.4 fl) 9.3 Neut % (Auto) (49.0 - 76.0 %) 83.3 H Lymph % (Auto) (23.0 - 38.0 %) 8.[address] [place] % (Auto) (1.0 - 10.0 %) 7.3 Eos % (Auto) (1.0 - 5.0 %) 0.5 L Baso % (Auto) (0.0 - 1.0 %) 0.2 Neut # (Auto) (2.4 - 6.3 K/mm3) 13.6 H Lymph # (Auto) (1.2 - 4.0 K/mm3) 1.4 [place] # (Auto) (0.0 - 0.6 K/mm3) 1.2 H Eos # (Auto) (0.0 - 0.7 K/MM3) 0.1 Baso # (Auto) (0.0 - 0.2 K/mm3) 0.0 Immature Gran % (0.0 - 0.4 %) 0.4 Immature Gran # (0.00 - 0.07 x10 3/uL) 0.07 Toxicology Urine Opiates Screen (NEGATIVE) NEGATIVE Urine Methadone Screen (NEGATIVE) NEGATIVE Urine Barbiturates (NEGATIVE) NEGATIVE Valproic Acid (50 - 100 mcg/dL) <3.0 L Ur Phencyclidine Scrn (NEGATIVE) NEGATIVE Ur Amphetamines Screen (NEGATIVE) NEGATIVE U Benzodiazepines Scrn (NEGATIVE) NEGATIVE Urine Cocaine Screen (NEGATIVE) NEGATIVE Urine Cannabinoids (NEGATIVE) POSITIVE H Ethyl Alcohol (0.00 - 0.00 gm/dL) 0.00 Urines Urine Color YELLOW Urine Appearance CLEAR Urine pH (5.0 - 9.0) 5.0 Ur Specific [place] (1.000 - 1.030) 1.020 Urine Protein (NEGATIVE mg/dl) 30 Urine Glucose (UA) (NORMAL mg/dl) NORMAL Urine Ketones (NEGATIVE mg/dl) NEGATIVE Urine Blood (NEGATIVE Eligio/micL) 10 Eligio/micL H Urine Nitrite (NEGATIVE) NEGATIVE Urine Bilirubin (NEGATIVE mg/dL) NEGATIVE Urine Urobilinogen (NORMAL mg/dl) NORMAL Ur Leukocyte Esterase (NEGATIVE Zaheer/micL) NEGATIVE Urine RBC (0 - 3 RBC/HPF) 1-3 Urine WBC (NONE WBC/HPF) 0-2 Ur Epithelial Cells (0 - 3 EPI/HPF) 0-3 Urine Bacteria (NONE) TRACE Recent Impressions:CAT SCAN - CT HEAD/BRAIN W/O CONT 05/02 1318 Report Impression - Status: SIGNED Entered: 05/02/2018 1332 IMPRESSION: Unremarkable exam. Impression By: HimanshuPMT - Iban Farmer M.D.RADIOLOGY - XR CHEST 1 V 05/02 1405 Report Impression - Status: SIGNED Entered: 05/02/2018 1417 IMPRESSION: Lungs are clear. No acute abnormality.Impression By: HimanshuJP19 - Shashi Shen M.D. Lab Imaging StatementLaboratory radiographic studies reviewed and considered in the medical decision-making. Point of Care TestingPulse Oximetry Pulse Ox % 100 On: Room air Interpretation Interpreted by me, Pulse oximetry normal Time 1237 ECG #1 InterpretationECG Documented in MUSE YesDate 05/02/18Time 1329Interpreted by ED physicianNL ECG Interpretation Normal rate, Normal sinus rhythm, No STEMI, Normal axisRate 82 Lab StudiesDrug Screen/Level Drug Screen Interpretation EtOH screen reviewed RadiographyCT Head Study No contrast Text/Dict NoteIMPRESSION: Unremarkable exam. Interpretation/Wet Read by Interpret - Radiologist Reviewed by ED physician Portions of this section were scribed by Dejuan Lucas on 05/02/18 at 1431 Re-Evaluation MDM Free Text MDM NotesFree Text MDM NotesCT H/B due to sz. no focal defcit, no neurological deficit, pt currently in no distress , leukocytosis noted no obvious signs of infection , no meningeal signs Re-Evaluation/Progress #1Text/Dict NotePt states he takes Clonazepam and not Deprakote. He reports that he will f/u with Dr. Drew Goodwin. Pt has his Rx and will continue to take his meds. [facility] reviewed active prescription noted Time of Re-Eval 1423Re-Eval Status ImprovedRe-Eval Neurologic Exam Alert, Oriented X3, CN II - XII intact, Speech normal, No motor deficits, Cerebellar normal, Gait normalEval Following Treatment Pt. feels betterPain Re-Evaluation Denies painExam Post Tx - General Active, Alert, Appears non-toxicExam Post Tx - Sys Review Lungs clearPlan Post Re-Eval Plan discharge ED CourseMedication(s) OrderedMedication(s) Ordered:Central Nervous System Agents Sig/Yen Start time Last Medication Dose Route Stop Time Status Admin Divalproex Sodium 250 MG X1ED STA 05/02 1413 CAN PO 05/02 1414 Electrolytic, Caloric, And Abdon Sig/Yen Start time Last Medication Dose Route Stop Time Status Admin Sodium Chloride 1,000 ML X1ED 05/02 1245 AC IV 06/01 1244 Portions of this section were scribed by Dejuan Lucas on 05/02/18 at 1431 Patient Discharge Departure Vital Signs/ConditionVital SignsFirst Documented: Result Date Time Pulse Ox 100 05/02 1237 B/P 120/69 / 1237 B/P Mean 86 / 1237 O2 Delivery Room air 05/02 1237 Temp 36.8 03/ 1237 Pulse 120 / 1237 Resp 18 05/02 1237 Last Documented: Result Date Time Pulse Ox 98 05/02 1433 B/P 113/56 / 1433 B/P Mean 75 / 1433 O2 Delivery Room air 05/02 1433 Temp 36.8 05/02 1433 Pulse 85 03/ 1433 Resp 16 05/02 1433 All vital signs available at the time of this entry have been reviewed. Condition Improved Clinical ImpressionClinical ImpressionPrimary Impression: Seizure Disposition DecisionDischarge )( Discharged to Home Yes )( Time 1426 )( Date 05/02/18 Discharge/Care PlanCounseled Regarding Diagnosis, Lab results, Imaging studies, Need for follow-up,When to return to ED Discharge NoteI have spoken with the patient and/or caregivers. I have explained the patient'scondition, diagnoses and treatment plan based on the information available to meat this time. I have answered the patient's and/or caregiver's questions and addressed any concerns. The patient and/or caregivers have as good an understanding of the patient's diagnosis, condition and treatment plan as can beexpected at this point. The vital signs have been stable. The patient's condition is stable and appropriate for discharge from the emergency department. The patient will pursue further outpatient evaluation with the primary care physician or other designated or consulting physician as outlined in the discharge instructions. The patient and/or caregivers are agreeable to this planof care and follow-up instructions have been explained in detail. The patient and/or caregivers have received these instructions in written format and have expressed an understanding of the discharge instructions. The patient and/or caregivers are aware that any significant change in condition or worsening of symptoms should prompt an immediate return to this or the closest emergency department or a call to 911. Supervising Physician Note Scribe StatementDejuan Lucas, 05/02/18 1255, scribing for and in the presence of Dr. Bhatt.Signed By: Dejuan Lucas, 05/02/18 1255 Provider Scribed StatementI personally performed the services described in this documentation and reviewedthe documentation that was dictated to the scribe(s) in my presence, and it accurately records my words and actions. Melo Bhatt, 05/02/18 Portions of this section were scribed by Dejuan Lucas on 05/02/18 at 1425 at 1451RPT #:[id number] OF REPORTEDEmergency department [id number].[id number] ilable for patient [id number] HCAMN
--- NOTE | 2023-05-12 18:29 | RAD REPORT ---
EXAM DESCRIPTION: CT - CTHCSPWOC - 05/12/2023 6:08 pm CLINICAL HISTORY: TRAUMA COMPARISON: No comparisons TECHNIQUE: Axial thin cut noncontrast CT images of the head were obtained. Axial thin cut noncontrast CT images of the cervical spine were obtained. Multiplanar reformatted images were generated and reviewed. All CT scans are performed using dose optimization technique as appropriate and may include automated exposure control or mA/KV adjustment according to patient size. FINDINGS: CT HEAD WITHOUT CONTRAST: No acute hemorrhage, hydrocephalus or extra-axial collection is identified.No areas of brain edema or midline shift. The paranasal sinuses and mastoids are clear.The calvarium is intact. CT CERVICAL SPINE WITHOUT CONTRAST: No fracture or subluxation.[id number] degenerative changes most notably with asymmetric uncover tebral joint spurring on the left at the C5-6 contributing to moderate left neural foraminal narrowin g.No prevertebral soft tissues swelling is identified. IMPRESSION: No acute traumatic intracranial or cervical spine findings.
[2023-05-12 19:18] LABS: Absolute Basophils 0.1 K/uL (0-0.5); Absolute Eosinophils 0.1 K/uL (0-0.5); Absolute Lymphocytes (CBC) 1.5 K/uL (0.7-4.9); Absolute Neutrophil 9.4 K/uL (1.8-8.0); Basophils % 0.7 % (0-1.3); Hematocrit 38.2 % (39.6-49.0); Hemoglobin 13.2 g/dL (13.6-17.9); MCH 31.6 pg (27.0-35.0); MCHC 34.5 g/dL (32.0-36.0); MCV 91.7 fL (80-100); MPV 7.2 fL (7.6-11.3); Monocytes % 8.6 % (3.3-12.3); Neutrophils % 77.7 % (41.7-73.7); Platelets 348 thou/uL (152-406); RBC Red Blood Cell Count 4.16 M/uL (4.33-5.43); Red Cell Distribution Width 13.7 % (12.1-15.2)
[2023-05-12 19:37] LABS: Albumin 3.5 g/dL (3.4-5.0); Albumin/Globulin Ratio 0.9 (1.1-1.8); Anion Gap 8.3 mEq/L (5.0-15.0); Bilirubin Total 0.3 mg/dL (0.2-1.0); Globulin 3.7 g/dL (2.3-3.5); Protein, Total 7.2 g/dL (6.4-8.2)
[2023-05-12 19:38] LABS: Potassium 4.3 mEq/L (3.5-5.1)
--- NOTE | 2023-05-12 19:43 | EDPHYS ---
Physician Documentation [facility] Name: Eladio Ramos Age: 47 yrs Sex: Male : 1975 Arrival Date: 05/12/2023 Time: 17:29 Bed 14 Private MD: ED Physician Nimesh Wood HPI: 05/11 20:41 This 47 yrs old Male presents to ER via EMS with complaints of Seizure. rt 20:41 Patient presents to the ED with a seizure. Patient did fall, hitting his head during rt the seizure. The seizure has since resolved, patient reports a mild headache and a laceration above the right eye, denies other injuries, other acute complaints, symptoms are moderate in severity, no other aggravating or alleviating factors.. Historical: - Allergies: 17:34 No Known Allergies; mb9 - Home Meds: 17:34 Klonopin Oral [Active]; mb9 17:35 Keppra Oral [Active]; mb9 - PMHx: 17:34 Seizure; mb9 - PSHx: 17:34 None; mb9 - Immunization history:: Adult Immunizations up to date. - Social history:: Smoking status: Patient reports the use of cigarette tobacco products, smokes one pack cigarettes per day. - Family history:: not pertinent. ROS: 20:41 Constitutional: Negative for fever, chills, and weight loss, Cardiovascular: Negative rt for chest pain, palpitations, and edema, Respiratory: Negative for shortness of breath, cough, wheezing, and pleuritic chest pain, Abdomen/GI: Negative for abdominal pain, nausea, vomiting, diarrhea, and constipation, 20:41 MS/extremity: Positive for Negative for acute changes, injury or acute deformity, 20:41 Skin: Positive for laceration(s), Negative for abrasions, 20:41 Neuro: Positive for headache, seizure activity, Exam: 20:41 Constitutional: This is a well developed, well nourished patient who is awake, alert, rt and in no acute distress. Head/Face: Normocephalic, atraumatic. Chest/axilla: Normal chest wall appearance and motion. Nontender with no deformity. No lesions are appreciated. Cardiovascular: Regular rate and rhythm with a normal S1 and S2. No gallops, murmurs, or rubs. Normal PMI, no JVD. No pulse deficits. Respiratory: Lungs have equal breath sounds bilaterally, clear to auscultation and percussion. No rales, rhonchi or wheezes noted. No increased work of breathing, no retractions or nasal flaring. Abdomen/GI: Soft, non-tender, with normal bowel sounds. No distension or tympany. No guarding or rebound. No evidence of tenderness throughout. Skin: Warm, dry with normal turgor. Normal color with no rashes, no lesions, and no evidence of cellulitis. MS/ Extremity: Pulses equal, no cyanosis. Neurovascular intact. Full, normal range of motion. Neuro: Awake and alert, GCS 15, oriented to person, place, time, and situation. Cranial nerves II-XII grossly intact. Motor strength 5/5 in all extremities. Sensory grossly intact. Cerebellar exam normal. Normal gait. 20:41 Eyes: 3 cm laceration just beneath the left eyebrow, no active bleeding, extraocular muscles are intact, there is no apparent ocular involvement. Vital Signs: 17:32 BP 133 / 85; Pulse 61; Resp 16; Temp 98; Pulse Ox 100% on R/A; Weight 61.23 kg; Height mb9 5 ft. 6 in. ; Pain 4/10; 19:56 BP 114 / 80; Pulse 75; Resp 16; Temp 98; Pulse Ox 98% ; rv 17:32 Body Mass Index 21.79 (61.23 kg, 167.64 cm) mb9 17:32 Pain Scale: Adult mb9 [place] Coma Score: 19:57 Eye Response: spontaneous(4). Motor Response: obeys commands(6). Verbal Response: rv oriented(5). Total: 15. Laceration: 20:41 Wound Repair of 3cm ( 1.2in ) subcutaneous laceration to left supraorbital ridge. rt Linear shaped.. Distal neuro/vascular/tendon intact. Anesthesia: Local anesthetic administered with 2 mls of 1% lidocaine. Wound prep: Extensive cleansing by nurse. Skin closed with 4 4-0 Prolene using simple sutures and sterile technique. Patient tolerated well. MDM: 17:32 Patient medically screened. rt 20:41 Differential diagnosis: Laceration, breakthrough seizure, cranial hemorrhage. Data rt reviewed: vital signs, nurses notes, lab test result(s), radiologic studies. I considered the following discharge prescriptions or medication management in the emergency department Medications were administered in the Emergency Department. See MAR. Independent interpretation of the following test(s) in the Emergency Department CT Scan: My interpretation is No intracranial hemorrhage seen on interpretation of CT scan images. Care significantly affected by the following chronic conditions: Seizure disorder. Counseling: I had a detailed discussion with the patient and/or guardian regarding the historical points, exam findings, and any diagnostic results supporting the discharge/admit diagnosis, lab results, radiology results, the need for outpatient follow up. 05/11 18:30 Order name: CBC with Diff; Complete Time: 19:40 rt 05/11 18:30 Order name: CMP; Complete Time: 19:40 rt 05/11 17:34 Order name: CT Head C Spine; Complete Time: 18:30 rt 05/11 17:34 Order name: Wound Care; Complete Time: 17:39 rt 05/11 17:34 Order name: Dressing - Wound; Complete Time: 17:39 rt 05/11 17:34 Order name: Gloves, Sterile; Complete Time: 17:39 rt 05/11 17:34 Order name: Setup Suture Tray; Complete Time: 17:39 rt Administered Medications: 17:39 Drug: HYDROcodone-acetaminophen PO 5 mg-325 mg 1 tabs PO once Route: PO; kc6 19:33 Follow up: Response: No adverse reaction; Marked relief of symptoms rv 19:33 Drug: Lidocaine Infiltration (1 %) 5 ml 5 ml Infiltration once; to bedside {Note: rv administered by Dr Wood.} Volume: 5 ml; Route: Infiltration; 19:57 Drug: Acetaminophen PO 1000 mg PO once Route: PO; rv 19:57 Follow up: Response: Medication administered at discharge. rv Disposition Summary: 05/12/23 19:42 Discharge Ordered Notes: Location: Home rt Problem: new rt Symptoms: have improved rt Condition: Stable rt Diagnosis - Breakthrough seizure rt - Facial laceration rt Followup: rt - With: Private Physician - When: 7 - 10 days - Reason: Staple/Suture removal Discharge Instructions: - Discharge Summary Sheet rt - Facial Laceration rt - Seizure, Adult rt Forms: - Medication Reconciliation Form rt - Thank You Letter rt - Antibiotic Education rt - Prescription Opioid Use rt - Patient Portal Instructions rt - Leadership Thank You Letter rt Signatures: Dispatcher [employer] Jean Macias RN RN Eboni Dodd, RN RN kc6 Kyia Vivar, RN RN mb9 Nimesh Wood MD MD rt
--- NOTE | 2023-05-12 19:43 | ER ---
Nurse's Notes [facility] Name: Eladio Ramos Age: 47 yrs Sex: Male : 1975 Arrival Date: 05/12/2023 Time: 17:29 Bed 14 Private MD: Diagnosis: Breakthrough seizure;Facial laceration Presentation: 05/11 17:32 Chief complaint: EMS states: "toned out for unwitnessed seizure that occurred while at [facility] work. Pt hit head and has laceration above left eyebrow. Pt has history of seizures and takes daily medication. 18 g left AC and administered 1 liter of NS.". Coronavirus screen: Vaccine status: Patient reports being unvaccinated. Ebola Screen: No symptoms or risks identified at this time. Initial Sepsis Screen: Does the patient meet any 2 criteria? No. Patient's initial sepsis screen is negative. Does the patient have a suspected source of infection? No. Patient's initial sepsis screen is negative. Risk Assessment: Do you want to hurt yourself or someone else? Patient reports no desire to harm self or others. Onset of symptoms was May 12, 2023. 17:32 Method Of Arrival: EMS: [facility] 17:32 Acuity: NIRAV 3 mb9 Triage Assessment: 17:36 General: Appears in no apparent distress. Behavior is calm, cooperative. Pain: mb9 Complains of pain in head Pain does not radiate. Pain currently is 4 out of 10 on a pain scale. Quality of pain is described as throbbing. Neuro: Marie Agitation-Sedation Scale (RASS): 0 - Alert and Calm Level of Consciousness is awake, alert, obeys commands, Oriented to person, place, time, situation, Appropriate for age. Cardiovascular: Patient's skin is warm and dry. Respiratory: Airway is patent Respiratory effort is even, unlabored, Respiratory pattern is regular, symmetrical. Injury Description: Laceration sustained to left eyebrow is 0.5 to 2.5 cm long, not bleeding. Historical: - Allergies: 17:34 No Known Allergies; mb9 - Home Meds: 17:34 Klonopin Oral [Active]; mb9 17:35 Keppra Oral [Active]; mb9 - PMHx: 17:34 Seizure; mb9 - PSHx: 17:34 None; mb9 - Immunization history:: Adult Immunizations up to date. - Social history:: Smoking status: Patient reports the use of cigarette tobacco products, smokes one pack cigarettes per day. - Family history:: not pertinent. Screenin:45 [facility] ED Fall Risk Assessment (Adult) History of falling in the last 3 months, kc6 including since admission Yes- physiologic fall (2 pts) Confusion or Disorientation No (0 pts) Intoxicated or Sedated No (0 pts) Impaired Gait No (0 pts) Mobility Assist Device Used No (0 pt) Altered Elimination No (0 pt) Score/Fall Risk Level 0 - 2 = Low Risk. Abuse screen: Denies threats or abuse. Denies injuries from another. Nutritional screening: No deficits noted. Tuberculosis screening: No symptoms or risk factors identified. Assessment: 17:45 General: Appears in no apparent distress. comfortable, well groomed, well developed, kc6 Behavior is calm, cooperative, appropriate for age. Pain: Complains of pain in left eye. Neuro: Level of Consciousness is awake, alert, obeys commands, Oriented to person, place, time, situation, Appropriate for age. Cardiovascular: Capillary refill < 3 seconds. Respiratory: Airway is patent Trachea midline Respiratory effort is even, unlabored, Respiratory pattern is regular, symmetrical. GI: No signs and/or symptoms were reported involving the gastrointestinal system. : No signs and/or symptoms were reported regarding the genitourinary system. EENT: No signs and/or symptoms were reported regarding the EENT system. Derm: Skin is healthy with good turgor, Skin is pink, warm \\T\\ dry. Musculoskeletal: No signs and/or symptoms reported regarding the musculoskeletal system. Circulation, motion, and sensation intact. Capillary refill < 3 seconds, Range of motion: intact in all extremities. Injury Description: Laceration sustained to left eye is clean, 0.5 to 2.5 cm long, not bleeding, was sustained 30-60 minutes ago. a small amount of bleeding noted at this time. 18:45 Reassessment: Patient appears in no apparent distress at this time. No changes from kc6 previously documented assessment. Patient and/or family updated on plan of care and expected duration. Pain level reassessed. Patient is alert, oriented x 3, equal unlabored respirations, skin warm/dry/pink. Vital Signs: 17:32 BP 133 / 85; Pulse 61; Resp 16; Temp 98; Pulse Ox 100% on R/A; Weight 61.23 kg; Height mb9 5 ft. 6 in. ; Pain 4/10; 19:56 BP 114 / 80; Pulse 75; Resp 16; Temp 98; Pulse Ox 98% ; rv 17:32 Body Mass Index 21.79 (61.23 kg, 167.64 cm) mb9 17:32 Pain Scale: Adult mb9 An Coma Score: 19:57 Eye Response: spontaneous(4). Motor Response: obeys commands(6). Verbal Response: rv oriented(5). Total: 15. ED Course: 17:32 Patient arrived in ED. mb9 17:32 Nimesh Wood MD is Attending Physician. rt 17:34 Triage completed. mb9 17:34 Arm band placed on. mb9 17:35 Eboni Santos RN is Primary Nurse. kc6 17:45 Patient has correct armband on for positive identification. Bed in low position. Call kc6 light in reach. Side rails up X2. Adult w/ patient. Client placed on continuous cardiac and pulse oximetry monitoring. NIBP monitoring applied. 17:45 Maintain EMS IV. Dressing intact. Good blood return noted. Site clean \\T\\ dry. Gauge \\T\\ corinna 6 site: 18G LAC. 17:45 Patient maintains SpO2 saturation greater than 95% on room air. kc6 18:09 CT Head C Spine In Process Unspecified. EDMS 19:00 Report given to KALE Hunt. kc6 19:57 Assist provider with laceration repair on left eye that was 2.5 cm. or less using rv sutures. Set up tray. Performed by Nimesh Wood MD Dressed with 4X4s, Patient tolerated well. IV discontinued, intact, bleeding controlled, No redness/swelling at site. Pressure dressing applied. Administered Medications: 17:39 Drug: HYDROcodone-acetaminophen PO 5 mg-325 mg 1 tabs PO once Route: PO; kc6 19:33 Follow up: Response: No adverse reaction; Marked relief of symptoms rv 19:33 Drug: Lidocaine Infiltration (1 %) 5 ml 5 ml Infiltration once; to bedside {Note: rv administered by Dr Wood.} Volume: 5 ml; Route: Infiltration; 19:57 Drug: Acetaminophen PO 1000 mg PO once Route: PO; rv 19:57 Follow up: Response: Medication administered at discharge. rv Medication: 19:59 VIS not applicable for this client. rv Outcome: 19:42 Discharge ordered by MD. rt 19:58 Discharged to home ambulatory, with family, rv 19:58 Condition: good 19:58 Discharge instructions given to patient, family, Instructed on discharge instructions, follow up and referral plans. wound care, suture removal Demonstrated understanding of instructions, follow-up care, wound care, suture removal 19:59 Patient left the ED. rv Signatures: Dispatcher [employer] EDJean Cha RN RN rv Eboni Santos RN RN kc6 Kiya Vivar RN RN mb9 Nimesh Wood MD MD rt Corrections: (The following items were deleted from the chart) 17:34 17:32 Chief complaint: EMS states: "toned out for unwitnessed seizure that occurred mb9 while at work. Pt has history of seizures and takes daily medication. 18 g left AC and administered 1 liter of NS." mb9 19:58 19:57 No provider procedures requiring assistance completed. rv rv
[2023-05-12 20:21] VITALS: BP 133/85; TEMP 98; O2SAT 100
== END ==
LOC: ER 17:29
PROC: 0HQ1XZZ Repair Face Skin, External Approach (ICD-10-PCS; principal; 2023-05-12)
DX: G40.901 Epilepsy, unspecified, not intractable, with status epilepticus (principal); S01.81XA Laceration without foreign body of other part of head, initial encounter
CPT/HCPCS: 36415; 70450; 72125; 80053; 85025; 99284; J2001